=== PATIENT | male | born 1935 | race Caucasian/White ===

== ENCOUNTER 2017-06-06 11:20 | Emergency (ER) | payer MEDICARE ==
[2017-06-06 12:05] LABS: #Basophils 0.1 thou/uL (0.0-0.2); #Eosinphils 0.1 thou/uL (0.0-0.7); #Lymphocytes 1.3 thou/uL (1.20-3.40); #Monocytes 0.9 thou/uL (0.11-0.59); #Neutrophils 7.1 thou/uL (1.40-6.50); %Basophils 0.6 % (0.0-1.0); %Eosinophils 1.4 % (0.0-10.0); %Lymphocytes 13.5 % (21.0-51.0); Hematocrit 42.1 % (42.0-52.0); Mean Platelet Volume 8.4 fL (7.4-10.4); Red Blood Cell (RBC) Count 4.42 mill/uL (4.70-6.10); White Blood Cell (WBC) Count 9.5 thou/uL (4.8-10.8)
[2017-06-06 12:29] LABS: ALT (SGPT) 11 U/L (8-55); AST (SGOT) 18 U/L (5-34); Alkaline Phosphatase 111 U/L (40-150); Anion Gap 16 mmol/L (10-20); BUN (Urea Nitrogen) 13 mg/dL (8.4-25.7); Bilirubin, Total 0.6 mg/dL (0.2-1.2); Calc. Creatinine Clearance 0 mL/min (70-130); Calcium 9.6 mg/dL (7.8-10.44); Carbon Dioxide 22 mmol/L (23-31); Chloride 106 mmol/L (98-107); Estimated GFR-MDRD 86; Globulin 3.6 g/dL (2.4-3.5); Protein, Total 7.3 g/dL (5.8-8.1)
[2017-06-06 13:45] LABS: Bilirubin Negative (Negative); Blood, Urine Large (Negative); Glucose, Urine (Dipstick) Negative (Negative); Ketone, Urine Negative (Negative); Nitrite Negative (Negative); Protein, Urine (Dipstick) 300 mg/dL (Neg-Trace); Urobilinogen 0.2 mg/dL (0.2-1.0)
[2017-06-06 13:47] LABS: Bacteria/HPF None Seen HPF (None Seen)
[2017-06-06 13:58] LABS: RBC/HPF GREATER THAN 50-TNTC HPF (0-3)
[2017-06-06 13:59] LABS: Hyaline Casts/LPF 0-3 HYALINE CAST LPF (0-3 Hyaline); Transitional Epithelial 0-3 HPF (0-3); Yeast-All Forms None Seen HPF (None Seen)
== END 2017-06-06 15:16 | disposition home or self-care (01) ==
LOC: ERS 11:20
DX: N39.0 Urinary tract infection, site not specified (principal); I49.9 Cardiac arrhythmia, unspecified; I48.91 Unspecified atrial fibrillation; J43.9 Emphysema, unspecified; F17.210 Nicotine dependence, cigarettes, uncomplicated; Z79.899 Other long term (current) drug therapy
CPT/HCPCS: 80053; 81003; 81015; 85025; 87077; 87086; 99284

== ENCOUNTER 2017-07-26 12:05 | Outpatient (CLI) | payer MEDICARE ==
--- NOTE | 2017-07-26 16:09 | RAD ---
CHEST TWO VIEWS: Comparison: 05-18-17 History: Dyspnea. FINDINGS: Stimulator device projects over the left hemithorax. There is elongation of the aorta. Normal cardia c silhouette. The pulmonary vessels and hilum are normal. Costophrenic angles are clear. Lungs are h yperinflated with chronic changes. Pneumothorax is note appreciated. Stable nodularity projecting ov er the left hemithorax. IMPRESSION: 1. Hyperinflation. 2. Chronic changes. 3. Stable nodularity projecting over the left hemithorax. POS: [facility]
== END 2017-07-26 12:06 | disposition home or self-care (01) ==
LOC: RAD 12:05
PROVIDERS: ATTEND Internal Medicine Critical Care Medicine
DX: R06.00 Dyspnea, unspecified (principal); R91.1 Solitary pulmonary nodule
CPT/HCPCS: 71020

== ENCOUNTER 2017-10-08 15:02 | Emergency (ER) | payer MEDICARE ==
--- NOTE | 2017-10-08 16:11 | RAD ---
PORTABLE CHEST 1 VIEW: HISTORY: A 81-year-old male with a history of cough and difficulty breathing. COMPARISON: 04/08/17 and 07/26/17. There is rotation to the right. Atherosclerosis of the aorta with ectasia. Electrical device overli es the left chest extending up towards the neck region. Stable left circumscribed lung nodule. Some linear and some pleural-based parenchymal changes in the apices are chronic. IMPRESSION: Stable-appearing chest. Atherosclerosis of the aorta with ectasia. Stable left pulmonary nodule. S table pleural and parenchymal opacity changes in the apices. No confluent pneumonia, overt edema, pl eural effusion, or other acute process. POS: [facility]
[2017-10-08 16:48] LABS: #Lymphocytes 1.7 thou/uL (1.20-3.40); #Monocytes 1.4 thou/uL (0.11-0.59); #Neutrophils 10.9 thou/uL (1.40-6.50); %Basophils 0.3 % (0.0-1.0); %Eosinophils 0.3 % (0.0-10.0); %Monocytes 10.2 % (0.0-10.0); %Neutrophils 77.3 % (42.0-75.0); Mean Corpuscular HGB CONC 32.2 g/dL (32.0-36.0); Mean Corpuscular Hemoglobin 30.1 pg (27.0-31.0); Mean Corpuscular Volume 93.6 fl (80.0-94.0); Mean Platelet Volume 8.4 fL (7.4-10.4); Platelet Count 261 thou/uL (130-400); RBC Distribution Width 13.4 % (11.5-14.5); White Blood Cell (WBC) Count 14.1 thou/uL (4.8-10.8)
[2017-10-08] MEDS ORDERED: methylPREDNISolone Sod Succ/PF 125 MG/2 ML VIAL ONE (16:55)
[2017-10-08] MEDS ORDERED: Magnesium Sulfate 2 GM/100 ML BAG ONE (16:55)
[2017-10-08] MEDS ORDERED: Water For Inject, Bacteriostat 30 ML ONE (16:55)
[2017-10-08 17:03] LABS: ALT (SGPT) 16 U/L (8-55); AST (SGOT) 20 U/L (5-34); Alkaline Phosphatase 113 U/L (40-150); Anion Gap 13 mmol/L (10-20); BUN (Urea Nitrogen) 14 mg/dL (8.4-25.7); Bilirubin, Total 0.5 mg/dL (0.2-1.2); CK (CPK) 66 U/L (30-200); Calc. Creatinine Clearance 0 mL/min (70-130); Calcium 9.8 mg/dL (7.8-10.44); Carbon Dioxide 24 mmol/L (23-31); Chloride 105 mmol/L (98-107); Estimated GFR-MDRD 86; Globulin 3.4 g/dL (2.4-3.5); Glucose 97 mg/dL (83-110); Protein, Total 7.4 g/dL (5.8-8.1); Sodium 138 mmol/L (136-145)
[2017-10-08 17:08] LABS: CKMB 1.2 ng/mL (0-6.6); Troponin I 0.011 ng/mL (< 0.028)
[2017-10-08 18:40] LABS: Bilirubin Negative (Negative); Blood, Urine Large (Negative); Clarity TURBID (Clear); Glucose, Urine (Dipstick) Negative (Negative); Leukocyte Large (Negative); Nitrite Negative (Negative); Protein, Urine (Dipstick) 30 mg/dL (Neg-Trace); Specific Gravity, Urine 1.019 (1.002-1.036); Urobilinogen 0.2 mg/dL (0.2-1.0)
[2017-10-08 18:42] LABS: Bacteria/HPF 3+ HPF (None Seen); Hyaline Casts/LPF 4-6 HYALINE CAST LPF (0-3 Hyaline); Pathc Cast-AUWi Flag 1.36 (0-2.49); Squamous Epithelial 0-3 HPF (0-3)
[2017-10-08 18:45] LABS: Yeast-AUWi Flag 59.7 (0-25.0)
[2017-10-08 18:59] LABS: RBC/HPF GREATER THAN 50-TNTC HPF (0-3); Yeast-All Forms None Seen HPF (None Seen)
[2017-10-08 19:00] LABS: Crystals/HPF 1+ CA OXALATE HPF (Negative)
== END 2017-10-08 18:05 | disposition home or self-care (01) ==
LOC: ERS 15:02
DX: J44.1 Chronic obstructive pulmonary disease with (acute) exacerbation (principal); D72.829 Elevated white blood cell count, unspecified; I48.91 Unspecified atrial fibrillation; N40.0 Benign prostatic hyperplasia without lower urinary tract symptoms; F41.9 Anxiety disorder, unspecified; F17.210 Nicotine dependence, cigarettes, uncomplicated; Z79.899 Other long term (current) drug therapy
CPT/HCPCS: 36415; 71045; 80053; 81003; 81015; 82553; 83605; 83880; 84484; 85025; 87077; 87086; 87186; 87804; 93005; 94640; 96365; 96375; J2930; J3475

== ENCOUNTER 2018-07-18 14:00 | Emergency (ER) | payer MEDICARE ==
[2018-07-18 15:28] LABS: #Lymphocytes 0.9 thou/uL (1.20-3.40); #Monocytes 0.6 thou/uL (0.11-0.59); #Neutrophils 7.3 thou/uL (1.40-6.50); %Basophils 0.4 % (0.0-1.0); %Eosinophils 0.2 % (0.0-10.0); %Monocytes 6.9 % (0.0-10.0); %Neutrophils 82.5 % (42.0-75.0); Hemoglobin 13.6 g/dL (14.0-18.0); Mean Corpuscular HGB CONC 31.1 g/dL (32.0-36.0); Mean Corpuscular Hemoglobin 27.7 pg (27.0-31.0); Mean Corpuscular Volume 88.8 fL (78.0-98.0); Mean Platelet Volume 8.3 fL (7.4-10.4); Platelet Count 254 thou/uL (130-400); RBC Distribution Width 14.8 % (11.5-14.5); White Blood Cell (WBC) Count 8.8 thou/uL (4.8-10.8)
--- NOTE | 2018-07-18 15:31 | RAD ---
PORTABLE AP CHEST: Date: 07/18/18 HISTORY: Dyspnea. COMPARISON: 10/08/17. FINDINGS: There is an electronic device again overlying the left chest with leads extending superiorly, stable in position. Cardiac silhouette and pulmonary vasculature are within normal limits for the portable t echnique of the study. The pulmonary nodule in left mid lung zone is again seen and unchanged. Again noted are mild chronic lung changes with linear densities seen in the mid lung zones bilaterally and at the right lung base. No new focal area of consolidation or pleural fluid is seen. There is no othe r interval change. IMPRESSION: 1. Stable chest without evidence of an acute cardiopulmonary process. 2. Stable pulmonary nodule left mid lung zone. 3. Stable chronic lung changes. POS: [facility]
[2018-07-18 15:46] LABS: ALT (SGPT) 10 U/L (8-55); AST (SGOT) 19 U/L (5-34); Albumin 4.3 g/dL (3.4-4.8); Alkaline Phosphatase 149 U/L (40-150); Anion Gap 11 mmol/L (10-20); BUN (Urea Nitrogen) 13 mg/dL (8.4-25.7); Bilirubin, Total 0.7 mg/dL (0.2-1.2); Calc. Creatinine Clearance 0 mL/min (70-130); Calcium 9.4 mg/dL (7.8-10.44); Carbon Dioxide 28 mmol/L (23-31); Chloride 103 mmol/L (98-107); Estimated GFR-MDRD 74; Globulin 3.7 g/dL (2.4-3.5); Glucose 97 mg/dL (83-110); Potassium 3.7 mmol/L (3.5-5.1); Sodium 138 mmol/L (136-145)
[2018-07-18 15:51] LABS: CKMB 1.2 ng/mL (0-6.6); Troponin I Less than 0.010 ng/mL (< 0.028)
== END 2018-07-18 18:27 | disposition home or self-care (01) ==
LOC: ERS 14:00
DX: J44.1 Chronic obstructive pulmonary disease with (acute) exacerbation (principal); I48.91 Unspecified atrial fibrillation; N40.0 Benign prostatic hyperplasia without lower urinary tract symptoms; F41.9 Anxiety disorder, unspecified; F17.210 Nicotine dependence, cigarettes, uncomplicated; Z79.899 Other long term (current) drug therapy; Z79.01 Long term (current) use of anticoagulants
CPT/HCPCS: 36415; 71045; 80053; 82553; 83880; 84484; 85025; 93005

== ENCOUNTER 2018-08-27 17:10 | Inpatient (IN) | payer MEDICARE ==
[2018-08-27] MEDS ORDERED: Magnesium 2 GM/50 ML BAG (IN WATER) ONE (17:37)
[2018-08-27] MEDS ORDERED: methylPREDNISolone Sod Succ/PF 125 MG/2 ML VIAL ONE (17:37)
[2018-08-27 17:48] LABS: #Basophils 0.1 thou/uL (0.0-0.2); #Eosinphils 0.1 thou/uL (0.0-0.7); #Lymphocytes 0.9 thou/uL (1.20-3.40); #Neutrophils 11.2 thou/uL (1.40-6.50); %Basophils 0.4 % (0.0-1.0); %Eosinophils 0.5 % (0.0-10.0); %Monocytes 7.5 % (0.0-10.0); %Neutrophils 84.6 % (42.0-75.0); Hemoglobin 13.7 g/dL (14.0-18.0); Mean Corpuscular HGB CONC 32.7 g/dL (32.0-36.0); Mean Corpuscular Hemoglobin 28.5 pg (27.0-31.0); Mean Corpuscular Volume 87.1 fL (78.0-98.0); Mean Platelet Volume 9.2 fL (7.4-10.4); Platelet Count 207 thou/uL (130-400); RBC Distribution Width 14.6 % (11.5-14.5); White Blood Cell (WBC) Count 13.3 thou/uL (4.8-10.8)
--- NOTE | 2018-08-27 17:52 | RAD ---
RADIOGRAPH CHEST 1 VIEW: 08/27/18 HISTORY: 82-year-old male with dyspnea. FINDINGS: There is hyperinflation of the lungs, consistent with COPD. There is no evidence of air space densit y, pneumothorax, or pulmonary edema. The lateral costophrenic angles are sharp. IMPRESSION: 1) No acute pulmonary findings. 2) Emphysema. 3) Left sided pulmonary nodule. 4) Left sided deep brain stimulator generator. 5) No interval change since 07/18/18. jn [] POS: [facility]
[2018-08-27 18:07] LABS: ALT (SGPT) 18 U/L (8-55); AST (SGOT) 25 U/L (5-34); Albumin 4.4 g/dL (3.4-4.8); Alkaline Phosphatase 136 U/L (40-150); Anion Gap 15 mmol/L (10-20); BUN (Urea Nitrogen) 15 mg/dL (8.4-25.7); Bilirubin, Total 0.9 mg/dL (0.2-1.2); Calc. Creatinine Clearance 0 mL/min (70-130); Carbon Dioxide 23 mmol/L (23-31); Chloride 103 mmol/L (98-107); Estimated GFR-MDRD 74; Globulin 3.7 g/dL (2.4-3.5); Glucose 116 mg/dL (83-110); Potassium 3.6 mmol/L (3.5-5.1); Protein, Total 8.1 g/dL (5.8-8.1); Sodium 137 mmol/L (136-145)
[2018-08-27 18:12] LABS: Acetaminophen Less than 6.0 mcg/mL (10.0-30.0); Alcohol Less than 10 mg/dL (Less than 10); Salicylate Less than 8.0 mg/dL (15.0-30.0)
[2018-08-27 18:53] LABS: Bilirubin Negative (Negative); Blood, Urine Large (Negative); Glucose, Urine (Dipstick) Negative (Negative); Leukocyte Moderate (Negative); Nitrite Positive (Negative); Protein, Urine (Dipstick) 30 mg/dL (Neg-Trace); Urobilinogen 0.2 mg/dL (0.2-1.0); pH, Urine 8.5 (5.0-9.0)
[2018-08-27 18:55] LABS: Clarity Opaque (Clear); Specific Gravity, Urine 1.021 (1.002-1.036)
[2018-08-27 19:04] LABS: RBC/HPF 21-50 HPF (0-3)
[2018-08-27 19:05] LABS: Hyaline Casts/LPF NONE SEEN LPF (0-3 Hyaline); Squamous Epithelial None Seen HPF (0-3)
[2018-08-27 19:06] LABS: Bacteria/HPF 2+ HPF (None Seen)
[2018-08-27] MEDS: ALPRAZolam 0.5 MG TAB PO SCH (20:37)
[2018-08-27] MEDS: Doxycycline 100 MG CAP PO SCH (20:44)
[2018-08-27 21:52] VITALS: BMI 20.9
[2018-08-28] MEDS: Sodium Chloride 0.45% 1,000 ML IV SCH ×2 (02:26→16:00)
[2018-08-28] MEDS: Ipratropium Bromide 0.03% Nasal Inhaler 30 ml Bottle EA NARE SCH ×3 (09:01→20:38)
[2018-08-28] MEDS: Digoxin 0.125 MG TAB PO SCH (09:10)
[2018-08-28] MEDS: Rivaroxaban 10 MG TAB PO SCH (09:10)
--- NOTE | 2018-08-28 09:16 | CT ---
CT CHEST WITHOUT CONTRAST: COMPARISON: 04/02/10 and chest x-ray 08/27/2018. HISTORY: Shortness of breath and respiratory distress. Left-sided pulmonary nodule seen on chest x-ray. TECHNIQUE: Multiple contiguous axial images were obtained in a CT of the chest without contrast. FINDINGS: The heart is normal in size. Calcifications are seen in the coronary arteries and aorta. No hilar o r mediastinal lymphadenopathy are appreciated on this limited noncontrast examination. Emphysematous changes are seen in the lungs. There is a 1.7 cm area of nodularity along the left pato or fissure. A small amount of motion artifact is seen coursing in the region of this nodule on this examination. No other pulmonary nodules are seen. NO pleural effusion or pneumothorax are seen. The visualized subdiaphragmatic structures are unremarkable. Degenerative changes are seen in the sp ine. A generator is seen projecting over the left chest wall. IMPRESSION: Left-sided pulmonary nodule. This may represent a pulmonary parenchymal nodule. This could also rep resent fluid entrapped within the major fissure. A followup CT in 6 months is recommended for furthe r evaluation. POS: [facility]
[2018-08-28] MEDS: Doxycycline 100 MG CAP PO SCH ×2 (09:20→20:38)
--- NOTE | 2018-08-28 14:47 | PRG ---
DATE OF SERVICE: 08/28/2018 SUBJECTIVE: Kelvin Carrillo is a little bit better. He actually moved around with Physical Therapy today. His frezuzjg-xy-rgr was in the room, feeding him. OBJECTIVE: LUNGS: Distant. HEART: Regular rhythm. ABDOMEN: Soft. VITAL SIGNS: He is afebrile, heart rate is 104, respiratory rate is 28, and oximetry is 91% on 1 L. He dropped into the 70s with ambulation. IMPRESSION: 1. Advanced chronic obstructive pulmonary disease. 2. Advanced deconditioning. 3. Ongoing tobacco use. 4. 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 PLAN: Continue with current medications. Job ID: [id number]
[2018-08-28] MEDS: ALPRAZolam 0.5 MG TAB PO SCH (20:38)
[2018-08-29] MEDS: Sodium Chloride 0.45% 1,000 ML IV SCH ×2 (03:24→16:42)
--- NOTE | 2018-08-29 05:54 | HP ---
DATE: 08/28/2018 HISTORY OF PRESENT ILLNESS: Mr. Carrillo is a very pleasant gentleman, who I have cared for, for many years. He has a movement disorder that was a benign essential tremor that was severe. He had a deep brain stimulator placed quite a while back. The neurologist who was adjusting his deep brain stimulator has moved away, but recently his tremor has been reasonably well controlled. Mr. Carrillo's biggest problem is inactivity and ongoing tobacco use. He has significant obstructive lung disease. He also has a benign nodule in his left lower lobe that we followed for quite sometime and is not enlarging and actually was a result of an aspiration pneumonia and a lung abscess. It shrunk down to a stable place and has been stable. He has been progressively getting more short of breath over several weeks. He was seen in the emergency room in early July and sent home. He is reaching a point from a functional standpoint where his cannot alone assist him and he may be reaching a point where he is going to end up in some time in a full-time care environment. PAST MEDICAL HISTORY: Remarkable for: 1. Suprapubic catheter and chronic bladder outlet obstruction. 2. History of chronic atrial fibrillation. 3. History of hypertension. 4. Advanced obstructive lung disease. 5. Prostate hypertrophy. 6. Status post implantation of a brain stimulator. 7. History of recurrent falls with a humerus fracture in 2017. 8. History of ulcer disease in the past. 9. History of anxiety, for which he takes Xanax. 10. History of left hydropneumothorax, requiring chest tube placement by Dr. Dawson in 2016. 11. Chronic anticoagulation. 12. Fall risk, quite sometime. 13. EGD in 2014 showing a duodenal ulcer. 14. Status post bilateral hip replacements. MEDICATIONS: Have been reviewed. FAMILY HISTORY: Negative for lung disease in early age. SOCIAL HISTORY: Very supportive family, extremely supportive . REVIEW OF SYSTEMS: Ten point review of systems completed, otherwise negative. He gets extremely short of breath just moving from the supine position to sitting on the side of the bed. PHYSICAL EXAMINATION: GENERAL: Mr. Carrillo is a very pleasant gentleman, who I have cared for, for many years. VITAL SIGNS: Blood pressure is 110/60, pulse is 80, respiratory rate is 18. He is afebrile. HEENT: Pupils are equal. Sclerae are anicteric. He is not talking much. NECK: Supple. He has no lymphadenopathy. LUNGS: He is . Lungs are distant clear with end-expiratory wheezes. HEART: Regular rhythm, S1 and S2 normal. ABDOMEN: Soft and nontender. EXTREMITIES: Without clubbing, cyanosis, or edema. IMAGING DATA: Chest radiograph showed no alveolar infiltrate. LABORATORY DATA: White count 13.3, hemoglobin 13.7, and platelets 207. Electrolytes were unremarkable. IMPRESSION: 1. Chronic obstructive pulmonary disease exacerbation. 2. Deconditioning which is at least as big a factor as the chronic obstructive pulmonary disease. PLAN: He will be admitted. Physical Therapy will be initiated. He will receive steroids, nebulizer treatments, empiric antibiotics, and continuation of his other home medications. He will also receive Xanax for his anxiety. He will need placement in a skilled facility after discharge from the hospital. This is a 70 minute History and Physical with greater than 50% of time spent on unit coordinating care. Job ID: [id number] [facility]
[2018-08-29] MEDS: Rivaroxaban 10 MG TAB PO SCH (08:34)
[2018-08-29] MEDS: Digoxin 0.125 MG TAB PO SCH (08:34)
[2018-08-29] MEDS: Doxycycline 100 MG CAP PO SCH ×2 (08:34→19:59)
[2018-08-29] MEDS: Ipratropium Bromide 0.03% Nasal Inhaler 30 ml Bottle EA NARE SCH ×2 (08:35→19:59)
--- NOTE | 2018-08-29 12:30 | PRG ---
DATE OF SERVICE: 08/29/2018 SUBJECTIVE: Mr. Carrillo has no new complaints. OBJECTIVE: VITAL SIGNS: Heart rate is 100, blood pressure 118/70, and oximetry is 94% on room air. LUNGS: Clear. HEART: Regular rhythm. ABDOMEN: Soft. He says he is going to work with physical therapy. IMPRESSION: 1. Chronic obstructive pulmonary disease exacerbation. 2. Extreme deconditioning. 3. Pulmonary nodule, left lower lobe, which is a scar left over from past lung abscess. 4. Movement disorder with a deep brain stimulator, seems reasonably stable. 5. long-term evaluations should be in progress. Hopefully, we can get him to custodial in two or three days. Job ID: [id number]
--- NOTE | 2018-08-29 15:23 | PQF ---
DATE: 08-29-18 ATTN: DR. DANY RIVERA Please exercise your independent, professional judgment in responding to the clarification form. Clinical indicators are provided on the bottom of this form for your review Please check appropriate box(s): [ ] UTI please specify if due to or related to (as applicable): [ ] Suprapubic catheter [ ] Contaminated urine specimen without UTI [ ] Other diagnosis [ ] Unable to determine In addition, please specify: Present on Admission (POA): [ ] Yes [ ] No [ ] Unable to determine For continuity of documentation, please document condition throughout progress notes and discharge summary. Thank You. CLINICAL INDICATORS - SIGNS / SYMPTOMS / LABS URINE: 08-27-18: URINE CLARITY: [place] H URINE PROTEIN: 30 H URINE BLOOD: LARGE H URINE NITRITE: POSITIVE H UR LEUKOCYTE ESTERASE: MODERATE H URINE RBC: 21-50 H URINE WBC: GREATER THAN 50- TNTC H URINE BACTERIA: 2+ H RISK FACTORS: ER: HX OF UTI, SUPRAPUBIC CATHETER PLACED 03-17-17, SMOKER TREATMENT: MAR: 08-28-18: NS IVF, DOXYCYCLINE PO (This form is maintained as a part of the permanent medical record) 2015 [employer] All Rights Reserved MARKO [email or web address] Office: [phone] [facility] CENTERJosef
[2018-08-29] MEDS: ALPRAZolam 0.5 MG TAB PO SCH (19:59)
[2018-08-30] MEDS: Sodium Chloride 0.45% 1,000 ML IV SCH (05:25)
[2018-08-30] MEDS: Digoxin 0.125 MG TAB PO SCH (08:02)
[2018-08-30] MEDS: Rivaroxaban 10 MG TAB PO SCH (08:03)
[2018-08-30] MEDS: Ipratropium Bromide 0.03% Nasal Inhaler 30 ml Bottle EA NARE SCH ×2 (08:04→20:52)
[2018-08-30 09:11] LABS: #Lymphocytes 0.6 thou/uL (1.20-3.40); #Monocytes 0.5 thou/uL (0.11-0.59); #Neutrophils 11.9 thou/uL (1.40-6.50); %Basophils 0.1 % (0.0-1.0); %Lymphocytes 4.5 % (21.0-51.0); %Monocytes 3.5 % (0.0-10.0); %Neutrophils 91.9 % (42.0-75.0); Hemoglobin 10.5 g/dL (14.0-18.0); Mean Corpuscular HGB CONC 31.4 g/dL (32.0-36.0); Mean Corpuscular Hemoglobin 27.5 pg (27.0-31.0); Mean Corpuscular Volume 87.6 fL (78.0-98.0); Mean Platelet Volume 8.8 fL (7.4-10.4); Platelet Count 207 thou/uL (130-400); RBC Distribution Width 14.8 % (11.5-14.5); Red Blood Cell (RBC) Count 3.82 mill/uL (4.70-6.10); White Blood Cell (WBC) Count 12.9 thou/uL (4.8-10.8)
[2018-08-30 09:30] LABS: Anion Gap 14 mmol/L (10-20); BUN (Urea Nitrogen) 23 mg/dL (8.4-25.7); Calc. Creatinine Clearance 66 mL/min (70-130); Calcium 9.2 mg/dL (7.8-10.44); Carbon Dioxide 23 mmol/L (23-31); Chloride 106 mmol/L (98-107); Estimated GFR-MDRD 82; Glucose 139 mg/dL (83-110); Potassium 4.4 mmol/L (3.5-5.1); Sodium 139 mmol/L (136-145)
--- NOTE | 2018-08-30 09:35 | PRG ---
DATE OF SERVICE: 08/30/2018 SUBJECTIVE: This morning, he is awake, alert, responsive. Says he is having difficulty breathing, but no chest pain. OBJECTIVE: VITAL SIGNS respirations 32, blood pressure 125/75. Pulse 84 Oxygen 94% CHEST: Decreased breath sounds. No wheezing. CARDIAC: Normal S1 and S2. No gallops. ABDOMEN: No masses. LABORATORY DATA: Urine grows Proteus and Pseudomonas sensitive to Maxipime. IMPRESSION: 1. End-stage chronic obstructive pulmonary disease. 2. Severe deconditioning. 3. Movement disorder. 4. Urinary tract infection. PLAN: I am not sure there is much to be done at this stage, requires placement, long going issues. I am going to start him on empiric antibiotics for his UTI. Probably, colonization more than anything else. [facility] [id number] [facility]
[2018-08-30] MEDS: Cefdinir 300 MG CAP PO SCH ×2 (13:44→20:51)
[2018-08-30] MEDS: Doxycycline 100 MG CAP PO SCH ×2 (13:44→20:51)
[2018-08-30] MEDS: ALPRAZolam 0.5 MG TAB PO SCH (20:50)
[2018-08-31] MEDS: Sodium Chloride 0.45% 1,000 ML IV SCH ×2 (01:40→17:07)
[2018-08-31] MEDS: Rivaroxaban 10 MG TAB PO SCH (08:43)
[2018-08-31] MEDS: Doxycycline 100 MG CAP PO SCH ×2 (08:43→20:33)
[2018-08-31] MEDS: Digoxin 0.125 MG TAB PO SCH (08:45)
[2018-08-31] MEDS: Cefdinir 300 MG CAP PO SCH ×2 (08:46→20:33)
[2018-08-31] MEDS: Ipratropium Bromide 0.03% Nasal Inhaler 30 ml Bottle EA NARE SCH ×2 (08:48→20:34)
[2018-08-31] MEDS: ALPRAZolam 0.5 MG TAB PO SCH (20:33)
[2018-09-01] MEDS: Rivaroxaban 10 MG TAB PO SCH (08:30)
[2018-09-01] MEDS: Doxycycline 100 MG CAP PO SCH ×2 (08:30→20:16)
[2018-09-01] MEDS: Cefdinir 300 MG CAP PO SCH ×2 (08:31→20:16)
[2018-09-01] MEDS: Digoxin 0.125 MG TAB PO SCH (08:31)
[2018-09-01] MEDS: predniSONE 20 MG TAB PO SCH (08:31)
[2018-09-01] MEDS: Ipratropium Bromide 0.03% Nasal Inhaler 30 ml Bottle EA NARE SCH (08:32)
--- NOTE | 2018-09-01 08:55 | PRG ---
DATE OF SERVICE: 08/31/2018 SUBJECTIVE: Kelvin Hopeedmund got out in the kay and walked today with assistance. OBJECTIVE: GENERAL: He is in no distress. VITAL SIGNS: Heart rate is in 80s, respiratory rate in the teens. LUNGS: Clear now. HEART: Regular rhythm. ABDOMEN: Soft. IMPRESSION: 1. Chronic obstructive pulmonary disease exacerbation. 2. Deconditioning. PLAN: He will be switched to prednisone. We are awaiting approval for placement to skilled. Job ID: [id number]
--- NOTE | 2018-09-01 16:55 | PRG ---
DATE OF SERVICE: 09/01/2018 SUBJECTIVE: Mr. Carrillo is continuing to progress. We have a bed for him for group home. Plan is for him to go in the morning. OBJECTIVE: VITAL SIGNS: Heart rate is in the 80s, respiratory rate 20. Oximetry is good on room air. His blood pressure has been fine. LUNGS: Now clear. HEART: Regular rhythm. ABDOMEN: Soft. IMPRESSION: 1. Advanced chronic obstructive pulmonary disease. 2. Advanced deconditioning. 3. Movement disorder, status post deep brain stimulator. I anticipate discharge in the morning. His IV fluids have been discontinued. Job ID: [id number]
[2018-09-01] MEDS: ALPRAZolam 0.5 MG TAB PO SCH (20:16)
[2018-09-02 07:34] LABS: Hemoglobin 12.5 g/dL (14.0-18.0); Mean Corpuscular HGB CONC 33.1 g/dL (32.0-36.0); Mean Corpuscular Hemoglobin 29.1 pg (27.0-31.0); Mean Corpuscular Volume 88.2 fL (78.0-98.0); Platelet Count 241 thou/uL (130-400); RBC Distribution Width 14.5 % (11.5-14.5); Red Blood Cell (RBC) Count 4.27 mill/uL (4.70-6.10); White Blood Cell (WBC) Count 11.5 thou/uL (4.8-10.8)
[2018-09-02 07:43] VITALS: TEMP 97.5
[2018-09-02] MEDS: Rivaroxaban 10 MG TAB PO SCH (08:16)
[2018-09-02] MEDS: Cefdinir 300 MG CAP PO SCH (08:16)
[2018-09-02] MEDS: Digoxin 0.125 MG TAB PO SCH (08:16)
[2018-09-02] MEDS: Doxycycline 100 MG CAP PO SCH (08:16)
[2018-09-02] MEDS: predniSONE 20 MG TAB PO SCH (08:17)
[2018-09-02] MEDS: Ipratropium Bromide 0.03% Nasal Inhaler 30 ml Bottle EA NARE SCH (08:18)
[2018-09-02 08:55] LABS: Band 4 % (5-11); Lymphocytes 15 % (21-51); MDiff Complete? YES; Monocytes 5 % (0-10); Neutrophil 75 % (42-75); RBC Morphology Normal; Reactive Lymphocytes 1 % (0-10)
[2018-09-02 15:30] VITALS: BP 119/80
--- NOTE | 2018-09-03 05:53 | DIS ---
DATE OF ADMISSION: 08/27/2018 DATE OF DISCHARGE: 09/02/2018 DISCHARGE DIAGNOSES: 1. Chronic obstructive pulmonary disease exacerbation. 2. Movement disorder with deep brain stimulator. 3. Extreme deconditioning. HOSPITAL COURSE: Please see history and physical for details. Briefly, Mr. Carrillo was admitted for shortness of breath and failure to thrive at home. He was started on steroids, antibiotics, nebulizer treatments, and gradually improved. He actually ambulated in the kay. Unfortunately, at home, his in a wonderful fashion continuously waits on him, so he does not do anything at home. I do not really think, he will ever be able to kick the cared for at home by her, but she is also a patient of mine and I will discuss this with her at a later date. I actually had to treat her for pneumonia this week because she had been neglecting a respiratory infection until he was put in the hospital. He had no other acute care issues. He has suprapubic catheter in place, chronic atrial fibrillation, hypertension, history of recurrent falls, history of a humerus fracture last year, history of ulcer disease, history of anxiety, history of left hydropneumothorax requiring chest tube placement, which left him with a small nodule at his left base as a scar, chronic anticoagulation, and history of bilateral hip replacements. He did have mild anemia that was stable here with a hemoglobin of 12. He is not a candidate for an aggressive treatment. If anything we might find, it would be malignant in my opinion. We will see how he does. He is being transferred to [place] for intermediate care. Job ID: [id number]
[2018-09-03] MEDS ORDERED: predniSONE 20 MG TAB PO SCH (08:00)
== END 2018-09-02 17:21 | DRG 191 ==
LOC: ERS 17:10 → T4-A 18:15
PROVIDERS: ADMIT Internal Medicine Critical Care Medicine; ATTEND Internal Medicine Critical Care Medicine
DX: J44.1 Chronic obstructive pulmonary disease with (acute) exacerbation (principal); N39.0 Urinary tract infection, site not specified; R25.1 Tremor, unspecified; F17.210 Nicotine dependence, cigarettes, uncomplicated; R91.1 Solitary pulmonary nodule; I10 Essential (primary) hypertension; N32.0 Bladder-neck obstruction; I48.2 Chronic atrial fibrillation; N40.1 Benign prostatic hyperplasia with lower urinary tract symptoms; F41.9 Anxiety disorder, unspecified; R62.7 Adult failure to thrive; Z96.643 Presence of artificial hip joint, bilateral
CPT/HCPCS: 36415; 71045; 71250; 80048; 80053; 80307; 81003; 81015; 83690; 84484; 85007; 85025; 85027; 87077; 87086; 87186; 87804; 93005; 94640; 96365; 96375; G8978-GP-CK; G8979-GP-CJ; G8996-GN-CJ; G8997-GN-CI; J2920; J2930; J7506; J7620

== ENCOUNTER 2018-10-22 12:53 | Inpatient (IN) | payer MEDICARE ==
[2018-10-22 13:32] LABS: #Lymphocytes 0.6 thou/uL (1.20-3.40); #Monocytes 0.7 thou/uL (0.11-0.59); #Neutrophils 13.5 thou/uL (1.40-6.50); %Basophils 0.1 % (0.0-1.0); %Eosinophils 0.2 % (0.0-10.0); %Lymphocytes 4.1 % (21.0-51.0); %Monocytes 4.9 % (0.0-10.0); %Neutrophils 90.7 % (42.0-75.0); Hemoglobin 13.7 g/dL (14.0-18.0); Mean Corpuscular HGB CONC 31.6 g/dL (32.0-36.0); Mean Corpuscular Hemoglobin 27.9 pg (27.0-31.0); Mean Corpuscular Volume 88.4 fL (78.0-98.0); Mean Platelet Volume 8.4 fL (7.4-10.4); Platelet Count 324 thou/uL (130-400); RBC Distribution Width 14.7 % (11.5-14.5); White Blood Cell (WBC) Count 14.9 thou/uL (4.8-10.8)
--- NOTE | 2018-10-22 13:47 | RAD ---
SINGLE VIEW OF THE CHEST: COMPARISON: 08/27/2018. HISTORY: Fever and weakness. Sepsis alert. FINDINGS: A single view of the chest shows a normal-sized cardiomediastinal silhouette. A generator projecting over the left chest wall may represent a vagal stimulator. There is no evidence of consolidation, m ass, or pleural effusion. IMPRESSION: No evidence of acute cardiopulmonary disease. POS: [facility]
[2018-10-22 13:52] LABS: ALT (SGPT) 13 U/L (8-55); AST (SGOT) 20 U/L (5-34); Albumin 3.7 g/dL (3.4-4.8); Alkaline Phosphatase 129 U/L (40-150); Anion Gap 17 mmol/L (10-20); BUN (Urea Nitrogen) 16 mg/dL (8.4-25.7); Bilirubin, Total 0.7 mg/dL (0.2-1.2); Calc. Creatinine Clearance 0 mL/min (70-130); Calcium 9.4 mg/dL (7.8-10.44); Carbon Dioxide 22 mmol/L (23-31); Chloride 105 mmol/L (98-107); Estimated GFR-MDRD 77; Globulin 3.8 g/dL (2.4-3.5); Glucose 134 mg/dL (83-110); Potassium 3.8 mmol/L (3.5-5.1); Protein, Total 7.5 g/dL (5.8-8.1); Sodium 140 mmol/L (136-145)
[2018-10-22 14:11] LABS: Bilirubin Small (Negative); Blood, Urine Large (Negative); Glucose, Urine (Dipstick) Negative (Negative); Leukocyte Moderate (Negative); Nitrite Positive (Negative); Protein, Urine (Dipstick) 100 mg/dL (Neg-Trace); pH, Urine 8.5 (5.0-9.0)
[2018-10-22 14:13] LABS: Clarity Hazy (Clear); Specific Gravity, Urine 1.026 (1.002-1.036)
[2018-10-22 14:21] LABS: Bacteria/HPF 2+ HPF (None Seen); Crystals/HPF 2+ TRIPLE PHOS HPF (Negative); Hyaline Casts/LPF NONE SEEN LPF (0-3 Hyaline); Squamous Epithelial None Seen HPF (0-3)
[2018-10-22] MEDS ORDERED: cefTRIAXone\\ROCEPHIN 1 GM VIAL ONE (14:46)
[2018-10-22] MEDS ORDERED: Zolpidem Tartrate 5 MG TAB PO PRN (15:12)
[2018-10-22] MEDS ORDERED: HYDROcodone/Acetaminophen 5/325 mg Tablet PO PRN (15:12)
[2018-10-22] MEDS: Sodium Chloride 0.9% 1,000 ML IV SCH (16:50)
[2018-10-22 17:00] VITALS: BMI 19.0
--- NOTE | 2018-10-22 17:48 | HP ---
CHIEF COMPLAINT: Fevers. HISTORY OF PRESENT ILLNESS: This is an 82-year-old male with a complicated past medical history of TURP procedure with a Parikh permanently placed by Dr. Kapadia. Apparently follows with Dr. Kapadia for bladder incontinence as well as Dr. Lester for pulmonary issues and Dr. Mao for surgical ablation. The patient states that he was started to have fever yesterday last night, called home health care, had his Parikh catheter replaced, and presents to the ER this morning because of worsening fever. The patient at this point in time, was also found to have a white count of 15 and urinalysis showed slightly dirty urine with potential UTI. The patient otherwise denies any nausea, vomiting, diarrhea, constipation, chills, or shortness of breath. States that he does frequently get UTIs in the past, however, is on lifelong antibiotics, but he has understood the regimen to avoid any drug resistant UTIs. The patient was seen and examined in the ER. at bedside. All questions answered. ALLERGIES: NO KNOWN DRUG ALLERGIES. HOME MEDICATIONS: See MAR. PAST MEDICAL HISTORY: Positive for BPH, status post TURP as well as atrial fibrillation and hypertension. SOCIAL HISTORY: No smoking. No drinking. FAMILY HISTORY: None. REVIEW OF SYSTEMS: All systems reviewed. Pertinent positives in HPI, otherwise negative. PHYSICAL EXAMINATION: VITAL SIGNS: Blood pressure is 112/88; heart rate of 100, however, regular; respiratory rate 18; temperature 99; O2 saturations 100% on room air. GENERAL: The patient is lying in bed comfortably, in no acute distress. HEENT: Pupils are equal, round, and reactive to light and accommodation. Extraocular muscles intact. Oral cavity moist and pink. NECK: Nontender, mobile, thyroid noted. Neck is supple. CARDIOVASCULAR: Irregularly irregular rhythm. S1 and S2. 2/6 systolic ejection murmur appreciated. RESPIRATORY: Clear to auscultation bilaterally. No increase in AP diameter. No respiratory distress. ABDOMEN: Positive bowel sounds. Soft, nontender, nondistended. EXTREMITIES: 2+ peripheral pulses noted. No edema. NEUROLOGIC: Alert, oriented x3. Following all commands. LABORATORY DATA: CBC shows white count of 15, otherwise normal. Basic metabolic panel is within acceptable limits. Glucose slightly elevated at 134. Urinalysis positive for nitrites, bilirubin, ketones, 100 protein, moderate leukocyte esterase, 11 to 20 high-power field white blood cells and red blood cells, 2+ bacteria noted. Chest x-ray shows no evidence of acute cardiopulmonary pathology. ASSESSMENT: 1. Urinary tract infection. 2. Sepsis. 3. Leukocytosis. 4. Benign prostatic hypertrophy, status post transurethral resection of prostate. 5. Bladder incontinence. 6. Atrial fibrillation. 7. Glucosuria. 8. Proteinuria. PLAN: 1. At this point in time, we will admit the patient to Internal Medicine Team. Consult Dr. Mao and Dr. Kapadia per the patient's family request. 2. We will start the patient on Levaquin to cover any pulmonary pathology as well as urinary pathology. 3. We will culture urine and blood culture prior to starting any antibiotics. 4. Labs in the morning. 5. Continue home medications when medical reconciliation is performed. 6. Case and plan discussed with the patient's family at length. They understand and agree with this plan. Job ID: [id number]
[2018-10-22 18:18] LABS: Lactic Acid 1.2 mmol/L (0.5-2.2)
[2018-10-23] MEDS: Sodium Chloride 0.9% 1,000 ML IV SCH (05:40)
[2018-10-23 06:35] LABS: #Eosinphils 0.1 thou/uL (0.0-0.7); #Lymphocytes 1.3 thou/uL (1.20-3.40); #Monocytes 0.8 thou/uL (0.11-0.59); #Neutrophils 8.8 thou/uL (1.40-6.50); %Basophils 0.1 % (0.0-1.0); %Eosinophils 0.6 % (0.0-10.0); %Lymphocytes 11.8 % (21.0-51.0); %Monocytes 7.5 % (0.0-10.0); %Neutrophils 79.9 % (42.0-75.0); Hemoglobin 11.1 g/dL (14.0-18.0); Mean Corpuscular HGB CONC 31.8 g/dL (32.0-36.0); Mean Corpuscular Hemoglobin 28.2 pg (27.0-31.0); Mean Corpuscular Volume 88.8 fL (78.0-98.0); Mean Platelet Volume 8.7 fL (7.4-10.4); Platelet Count 254 thou/uL (130-400); RBC Distribution Width 14.5 % (11.5-14.5); Red Blood Cell (RBC) Count 3.94 mill/uL (4.70-6.10)
[2018-10-23 06:39] LABS: Hemoglobin A1c 5.6 % (4.0-6.0)
[2018-10-23 06:56] LABS: ALT (SGPT) 8 U/L (8-55); AST (SGOT) 14 U/L (5-34); Alkaline Phosphatase 100 U/L (40-150); Anion Gap 14 mmol/L (10-20); BUN (Urea Nitrogen) 12 mg/dL (8.4-25.7); Bilirubin, Total 0.5 mg/dL (0.2-1.2); Calc. Creatinine Clearance 68 mL/min (70-130); Calcium 8.7 mg/dL (7.8-10.44); Carbon Dioxide 20 mmol/L (23-31); Chloride 108 mmol/L (98-107); Estimated GFR-MDRD Greater than 90; Globulin 3.1 g/dL (2.4-3.5); Glucose 98 mg/dL (83-110); Potassium 3.8 mmol/L (3.5-5.1); Protein, Total 6.1 g/dL (5.8-8.1); Sodium 138 mmol/L (136-145)
[2018-10-23] MEDS: Acetaminophen 325 MG TAB PO PRN ×3 (07:14→20:44)
--- NOTE | 2018-10-23 08:21 | RAD ---
SINGLE VIEW OF THE CHEST: COMPARISON: 10/22/2018. HISTORY: High respiratory rate. FINDINGS: A single view of the chest shows a normal-size cardiomediastinal silhouette. The generator projectin g over the left chest wall is unchanged in position. There is no evidence of consolidation, mass, or pleural effusion. Degenerative changes are seen in the spine and right shoulder. IMPRESSION: No evidence of acute cardiopulmonary disease. POS: [facility]
[2018-10-23] MEDS ORDERED: Enoxaparin Sodium 40 MG/0.4 ML SYRINGE SC SCH (09:00)
[2018-10-23] MEDS: Enoxaparin Sodium 80 MG/0.8 ML SYRINGE SC SCH ×2 (09:35→20:44)
[2018-10-23] MEDS: predniSONE 20 MG TAB PO SCH (09:35)
--- NOTE | 2018-10-23 09:58 | PDOC.PN ---
- Subjective Encounter Start Date: 10/23/18 Encounter Start Time: 09:57 Patient seen and examined, states he has no complaints over the last 24 hours, all questions answered. - Objective Vital Signs & Weight: Vital Signs (12 hours) Temp Pulse Resp BP Pulse Ox 10/23/18 09:35 110 H 10/23/18 08:12 99.6 F 110 H 36 H 124/77 91 L 10/23/18 07:05 101.1 F H 119 H 40 H 151/83 H 97 10/23/18 05:55 98.3 F 88 16 123/83 99 10/23/18 00:52 98.7 F 88 18 108/68 99 Weight Weight 136 lb 8 oz I&O: 10/22/18 10/23/18 10/24/18 06:59 06:59 06:59 Intake Total 1266 Balance 1266 Result Diagrams: 10/23/18 05:46 10/23/18 05:46 Phys Exam - Physical Examination Constitutional: NAD HEENT: PERRLA, moist MMs, sclera anicteric Neck: no nodes, no JVD, supple Respiratory: no wheezing, no rales, no rhonchi tachycardia, irregular 2/6 LILIA Gastrointestinal: soft, non-tender Musculoskeletal: pulses present, edema present (trace) Dx/Plan (1) Hypertension Code(s): I10 - ESSENTIAL (PRIMARY) HYPERTENSION Status: Acute (2) Complicated UTI (urinary tract infection) Code(s): N39.0 - URINARY TRACT INFECTION, SITE NOT SPECIFIED Status: Acute (3) Afib Code(s): I48.91 - UNSPECIFIED ATRIAL FIBRILLATION Status: Chronic Qualifiers: Comment: (4) COPD (chronic obstructive pulmonary disease) Status: Chronic Qualifiers: Comment: - Plan * Fever overnight, patient on abx has only received a few doses, will not make any changes for now, WBC trending downwards, continue levaquin for now this should cover Lung/GI/ pathology, can consider flagyl if patient having diarrhea which currently he is not * cultures pending * new santiago inserted day prior to arrival in ER, will await cultures, ideally this santiago will also needs to be changed, however to be done once infection has cleared or once UA is clean * Dr. Quinteros and Dr. Lester consulted per patient's request last night, evaluations pending * patient showing difficulty swallowing, will hold on PO meds for now, speech consulted for evaluation, will switch to full dose lovenox for now, can resume xarelto and DC lovenox once swallowing improved * AFib rate controlled at HR < 110 * CXR shows no acute abnormalities * will monitor and await cultures, adjust abx accordingly
[2018-10-23] MEDS: Cefepime 2 GM in Sodium Chloride 0.9% 100 ML IVPB SCH (13:14)
[2018-10-23] MEDS ORDERED: Labetalol HCl 100 MG/20 ML VIAL SLOW IVP SCH (16:00)
[2018-10-23 17:06] LABS: Actual Bicarbonate (HCO3a) 20.2 mEq/L (22-28); Base Excess (BEa) -2.2 mEq/L (-2.0 to +3.0); CO2 Tension 27.5 mmHg (35.0-45.0); Calcium, Ionized 1.13 mmol/L (1.12-1.30); Hemoglobin (Hb) 11.8 g/dL (14.0-18.0); O2 Tension (PaO2) 95.8 mmHg (> 60.0); Potassium - ABG Lab 3.75 mmol/L (3.70-5.30); pH, Arterial 7.48 (7.35-7.45)
[2018-10-23 17:07] LABS: ALV-art Gradient 69.465 (0-20); Puncture Site RRA
--- NOTE | 2018-10-23 18:26 | RAD ---
CHEST ONE VIEW: History: Shortness of breath. Comparison: Earlier same day. FINDINGS: There are asymmetric opacities in the right lung base. There is a nodule within the lingula measuring approximately 2 cm. Lung apices are clear. Patient is mildly rotated to the right. Old right humeral neck fracture. IMPRESSION: 1. Worsening opacity in the right lung base concerning for aspiration or infection. 2. 2 cm nodule projecting over the lingula likely loculated fluid within the left major fissure as se en on a CT 08-18-18. Follow up CT recommended in 3 months. POS: [facility]
[2018-10-23] MEDS: Ondansetron PF 4 MG/2 ML Vial IVP PRN (20:44)
[2018-10-24] MEDS: Cefepime 2 GM in Sodium Chloride 0.9% 100 ML IVPB SCH ×2 (02:03→12:21)
[2018-10-24 05:15] LABS: #Lymphocytes 0.9 thou/uL (1.20-3.40); #Monocytes 0.7 thou/uL (0.11-0.59); #Neutrophils 11.8 thou/uL (1.40-6.50); %Basophils 0.1 % (0.0-1.0); %Eosinophils 0.1 % (0.0-10.0); %Lymphocytes 6.6 % (21.0-51.0); %Monocytes 5.4 % (0.0-10.0); %Neutrophils 87.7 % (42.0-75.0); Hemoglobin 10.7 g/dL (14.0-18.0); Mean Corpuscular HGB CONC 32.1 g/dL (32.0-36.0); Mean Corpuscular Hemoglobin 28.7 pg (27.0-31.0); Mean Corpuscular Volume 89.4 fL (78.0-98.0); Mean Platelet Volume 8.7 fL (7.4-10.4); Platelet Count 213 thou/uL (130-400); RBC Distribution Width 14.6 % (11.5-14.5); Red Blood Cell (RBC) Count 3.73 mill/uL (4.70-6.10); White Blood Cell (WBC) Count 13.5 thou/uL (4.8-10.8)
[2018-10-24 05:36] LABS: ALT (SGPT) 11 U/L (8-55); AST (SGOT) 18 U/L (5-34); Albumin 2.8 g/dL (3.4-4.8); Alkaline Phosphatase 100 U/L (40-150); Anion Gap 12 mmol/L (10-20); BUN (Urea Nitrogen) 18 mg/dL (8.4-25.7); Bilirubin, Total 0.4 mg/dL (0.2-1.2); Calc. Creatinine Clearance 61 mL/min (70-130); Calcium 8.6 mg/dL (7.8-10.44); Carbon Dioxide 21 mmol/L (23-31); Chloride 110 mmol/L (98-107); Estimated GFR-MDRD 88; Globulin 3.1 g/dL (2.4-3.5); Glucose 117 mg/dL (83-110); Potassium 3.9 mmol/L (3.5-5.1); Protein, Total 5.9 g/dL (5.8-8.1); Sodium 139 mmol/L (136-145)
[2018-10-24] MEDS: Ondansetron PF 4 MG/2 ML Vial IVP PRN (05:58)
[2018-10-24] MEDS: predniSONE 20 MG TAB PO SCH (08:57)
[2018-10-24] MEDS: Enoxaparin Sodium 80 MG/0.8 ML SYRINGE SC SCH ×2 (08:58→21:13)
--- NOTE | 2018-10-24 09:40 | CON ---
DATE OF CONSULTATION: HISTORY OF PRESENT ILLNESS: Kelvin Carrillo is an 82-year-old gentleman, who sees Dr. Lester, presented with a fever up to 101.9. He was recently discharged from the long-term for UTI associated fever. He has a cough, which is nonproductive, in fact, he denies any shortness of breath. PAST MEDICAL HISTORY: Extensive past medical history is well outlined. Pertinent for cardiac arrhythmias, atrial fibrillation, BPH with suprapubic in place, end-stage COPD. PAST SURGICAL HISTORY: Hip surgery, suprapubic, neurostimulator in 2015, TURP. SOCIAL HISTORY: Former smoker, quit smoking years ago. Apparently, may be still using, drinks alcohol from time to time. HOME MEDICINES: 1. Spiriva. 2. Zoloft 100. 3. Xarelto 20. 4. Protonix 40. 5. Dulera 2 puffs twice a day. 6. Nose spray. 7. Cardizem CD 120. 8. Digoxin 0.125. 9. B12. 10. Tessalon Perles. 11. Xanax 0.5 p.r.n. REVIEW OF SYSTEMS: Unremarkable. PHYSICAL EXAMINATION: GENERAL: He appears to be in no acute distress. VITAL SIGNS: Blood pressure is 124/77, sats are 91 on room air, respirations 36, pulse 110, temperature 99.6. NEUROLOGIC: Awake, alert, responsive. CHEST: Decreased breath sounds. No wheezing. CARDIAC: Normal S1, S2. No gallops. ABDOMEN: No masses. LABORATORY DATA: White count 76076, H and H 11 and 35, platelet count 254. Lytes are normal. His urine shows WBCs 11-20. IMPRESSION: Fever, probably secondary to urinary tract infection, end-stage chronic obstructive pulmonary disease, atrial fibrillation. PLAN: I will cover him for his previous gram-negative UTI that is more likely cause of his fever. The Levaquin is resistant, therefore, I have initiated Maxipime to his present regimen. I will notify Dr. Lester. Consultation note, 70 minutes, 50% direct patient care. Job ID: [id number]
--- NOTE | 2018-10-24 10:45 | CON ---
DATE OF CONSULTATION: 10/24/2018 HISTORY OF PRESENT ILLNESS: This is an 82-year-old white male, who was admitted 2 days ago with fever. Looking at his vital signs, he had a fever when he came in, then he was afebrile and then, he had another fever. He does have a suprapubic catheter in, which he has had in for well over a year, maybe longer, and this is because of urinary retention. He had a TURP in the past, but was unable to urinate after that. He had been in a [facility] as his had actually been ill and could not take care of him, but I believe he got back home last week. His suprapubic tube was not that long ago exchanged. He grew out in urine culture of 2 different Proteus species, both with multiple drug resistance. He had a blood culture drawn grew out, but maybe a contaminant, it was just on 1 culture and he had grew out a coagulase-negative Staph on 1 of 2 blood cultures. He is currently on cefepime and Levaquin and the Proteus species he has in his urine, 1 is resistant to cefepime, 1 is sensitive to cefepime, and they are both resistant to Levaquin. His white count when he came in on was 14.9, yesterday was 11.0, and today it is 13.5. Chest x-ray done today showed some worsening opacity in the right lung base concerning for possible aspiration or infection versus a small pulmonary nodule. His chemistries, his creatinine 0.84. He appears to be feeling better. Today, he says he feels better and he is answering questions. His last couple of vital sign checks, he has been afebrile. O2 saturations 100%. Pulse in the low 90s. Blood pressure 100/69 and 116/80. He does not have any flank tenderness. His abdomen is soft, flat, and nontender. Penis is without lesion. SP site is clean. The testicles are descended without mass or tenderness or anything to suggest epididymitis. IMPRESSION AND PLAN: 1. Urinary retention, managed with suprapubic tube. 2. Colonization of urine, possible urinary tract infection with sepsis, although his blood cultures are not growing out the organism that he had in his urine and with a fever that he had, we would think there is a decent chance that would be the case. Particularly, in light of the fact that 1 of the Proteus is not even sensitive to the antibiotics that he is on. 3. Possible pneumonia. I think the plan at this point would be to see what Dr. Lester thinks in regard to his chest x-ray. If it is felt that his sepsis came from the urinary tract source, then choice of antibiotics may end up being left up to Infectious Disease. I do think that there is a chance that it is not from urinary tract source as he will almost always grew out organisms from his suprapubic tube because of colonization. He has already developed multidrug resistance, it will be nice to not have to treat very long. If it was felt to be due to the urinary tract source to treat just this lowest or not we have to on positive blood cultures that may be possible. I do think that there is a distinct possibility that we were just still dealing with the urinary tract colonization. It does not appear at this point in time because of the way that he is improved and because of the way he looks today that we would need to do any type of an upper tract study like a noncontrast CAT scan to rule out urinary tract calculus or obstruction. However, he starts to spike fevers again and there is not another obvious source, then that may be necessary. I will follow along with you. Job ID: [id number]
--- NOTE | 2018-10-24 13:30 | CON ---
DATE OF CONSULTATION: 10/24/2018 REASON FOR CONSULTATION: Atrial fibrillation, recent sepsis. HISTORY OF PRESENT ILLNESS: Mr. Kelvin Carrillo is a delightful 82-year-old gentleman. The patient was admitted to the hospital with fever and shortness of breath. He was found to have urosepsis. In addition, it is noted he has atrial fibrillation. The patient is improving with intravenous diuretics. The patient otherwise is beginning to feel better. He has a chronic suprapubic catheter. The patient does have a history of chronic atrial fibrillation on medication. CURRENT MEDICATIONS: He is on currently: 1. Prednisone. 2. Enoxaparin. 3. Previously, he was on Xarelto at home. 4. Diltiazem CD 120 mg a day. 5. Digoxin 0.125 mg Wednesday, Wednesday, and Wednesday. 6. Antibiotics. ALLERGIES: NONE KNOWN. SOCIAL HISTORY: Cared for by his . REVIEW OF SYSTEMS: CONSTITUTIONAL: No significant weight gain or loss vision. VISION: No changes. HEARING: No changes. PULMONARY: No cough or wheezing. GASTROINTESTINAL: No nausea, vomiting, or diarrhea. SKIN: No rashes. NEUROLOGIC: No unilateral weakness or numbness. PSYCHIATRIC: No unusual depression or anxiety. PHYSICAL EXAMINATION: GENERAL: This is a very pleasant 82-year-old gentleman, in no distress. VITAL SIGNS: Blood pressure 109/63 and pulse 80 to 100, it is irregular. HEENT: Eyes, sclerae nonicteric. Mouth, mucous membranes moist. NECK: Supple. No lymphadenopathy. LUNGS: Clear. CARDIAC: Irregularly irregular. ABDOMEN: Soft and nontender. EXTREMITIES: Warm and dry. No clubbing, cyanosis, or edema. PERTINENT LABORATORY DATA: Hemoglobin is 10.7 slightly low. Sodium 139, BUN is 18, creatinine 0.84. Previous iron level was 28 back in 2016. Previous ferritin level in 2016 was 152. ASSESSMENT: 1. Probable urosepsis, improving. 2. Chronic atrial fibrillation. 3. Increase heart rate related to fever that is improved. 4. Mild anemia. PLAN: 1. Echocardiogram. 2. Continue current cardiac medicines. 3. Check BNP in the morning. 4. Check iron levels if he has low consideration for intravenous iron. Job ID: [id number]
--- NOTE | 2018-10-24 19:00 | PDOC.PN ---
- Subjective Encounter Start Date: 10/24/18 Encounter Start Time: 18:45 Subjective: f/u for suspected UTI in context of indwelling suprapubic cath -: on Cefepime. Feels ok overall. No fever spike per nursing today. - Objective Resuscitation Status - Order Detail: 10/23/18 16:36 Resuscitation Status Routine Resuscitation Status: DNAR: NO Resuscitation Discussed with: per , paper work in chart MAR Reviewed: Yes Vital Signs & Weight: Vital Signs (12 hours) Temp Pulse BP Pulse Ox 10/24/18 08:58 95 100/69 10/24/18 08:00 98.8 F 98 Weight Weight 136 lb 8 oz Most Recent Monitor Data Heart Rate from ECG 97 NIBP 106/78 NIBP BP-Mean 87 Respiration from ECG 34 SpO2 100 I&O: 10/23/18 10/24/18 10/25/18 06:59 06:59 06:59 Intake Total 1266 220 830 Output Total 600 300 Balance 1266 -380 530 Result Diagrams: 10/24/18 05:00 10/24/18 05:00 Additional Labs: Microbiology 10/22/18 13:26 Nasal swab Influenza Types A,B Direct EIA - Final 10/23/18 14:07 Venous blood - Left Hand Blood Culture - Preliminary Specimen has been received and culture in progress. No Growth to date. 10/23/18 14:02 Venous blood - Right Hand Blood Culture - Preliminary Specimen has been received and culture in progress. No Growth to date. 10/22/18 13:48 Urine santiago catheter Urine Culture - Preliminary Proteus mirabilis 10/22/18 13:16 Venous blood - Right Arm Blood Culture - Preliminary Coagulase Neg Staphylococcus 10/22/18 13:15 Venous blood - Left Arm Blood Culture - Preliminary NO GROWTH AT 48 HOURS Radiology Reviewed by me: Yes (PCXR - ? opacity in RLL) EKG Reviewed by me: Yes (Tele - A-fib in 80's) Phys Exam - Physical Examination Constitutional: NAD smiling, alert HEENT: PERRLA, sclera anicteric, oral pharynx no lesions Neck: no nodes, no JVD, supple, full ROM Respiratory: no wheezing, no rales, no rhonchi, clear to auscultation bilateral S1, S2 Cardiovascular: no significant murmur, no rub, gallop, irregular + suprapubic cath in place Gastrointestinal: soft, non-tender, no distention, positive bowel sounds Musculoskeletal: no edema, pulses present Neurological: normal sensation, moves all 4 limbs Skin: normal turgor, cap refill <2 seconds Dx/Plan (1) Complicated UTI (urinary tract infection) Code(s): N39.0 - URINARY TRACT INFECTION, SITE NOT SPECIFIED Status: Acute Comment: Suspected with current Proteus spp, Cefepime initiated but Proteus spp resistant, monitor clinically as organism could be colonizer (2) Sepsis Code(s): A41.9 - SEPSIS, UNSPECIFIED ORGANISM Status: Acute Comment: Suspected due to #1, supportive mgmt (3) Afib Code(s): I48.91 - UNSPECIFIED ATRIAL FIBRILLATION Status: Chronic Qualifiers: Atrial fibrillation type: chronic Comment: Rate-controlled, continue Diltiazem, Digoxin, Xarelto (4) BPH (benign prostatic hyperplasia) Code(s): N40.0 - BENIGN PROSTATIC HYPERPLASIA WITHOUT LOWER URINRY TRACT SYMP Status: Chronic Comment: s/p TURP (5) COPD (chronic obstructive pulmonary disease) Status: Chronic Qualifiers: Comment: Continue pulm supportive mgmt, Prednisone taper, Duonebs - Plan continue antibiotics, PT/OT, administrator social welfare, respiratory therapy, DVT proph w/ SCDs Stable currently -: Continue Cefepime another 24h then de-escalate -: D/C Levaquin -: Continue Diltiazem/Digoxin -: AM lab: Iron studies * .
--- NOTE | 2018-10-24 19:44 | PRG ---
DATE OF SERVICE: 10/24/2018 SUBJECTIVE: Mr. Carrillo is an 82-year-old male with a deep brain stimulator for movement disorder and most recently in the hospital with COPD exacerbation. He went to rehab. He has suprapubic catheter in place. His SP catheter was replaced, but you know his showed them how to modify the tip of the catheter because of history of obstruction with sediment caregivers at the [facility] refused to modify the end of the catheter. He has been home recently and has the appropriate modified catheter in place. He developed a febrile illness and was subsequently admitted. He is followed by Dr. Kapadia. Surprisingly, Proteus that is fairly antibiotic resistant was isolated. Despite broad-spectrum antimicrobial therapy, he has continued to have fever. Blood culture showed a Staph that is felt to be a contaminant. Chest x-ray maybe remarkable for mild increase in markings at the right base, but this is very subtle. I would think if he had an aspiration related pneumonia. Current antimicrobial therapy would be adequate. He certainly could have a viral illness as well given that starting to see a flu and more respiratory viruses. OBJECTIVE: GENERAL: He is in no distress today. His says he is fine, looking better. LUNGS: Clear. HEART: Regular rhythm. ABDOMEN: Soft and nontender. EXTREMITIES: Unremarkable. IMPRESSION: Fever without a clear source. He certainly could have an early mild pneumonia, but I would think he would have defervesced with current antimicrobial therapy. 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 He is not bacteremic with this. His says he is clinically much better than he was few days ago, which was an argument against this Proteus being a pathogenic organism since it is resistant to his current antimicrobial therapy. I will continue to follow with the other physicians. Job ID: [id number] [facility] HOSPITALJosef
[2018-10-24] MEDS: Digoxin 0.125 MG TAB PO SCH (21:12)
[2018-10-25] MEDS: Cefepime 2 GM in Sodium Chloride 0.9% 100 ML IVPB SCH ×2 (00:23→13:07)
[2018-10-25 06:50] LABS: Iron 17 ug/dL (65-175); Iron Binding Capacity, Total 188 mcg/dL (261-462)
[2018-10-25] MEDS: Enoxaparin Sodium 80 MG/0.8 ML SYRINGE SC SCH (08:30)
[2018-10-25] MEDS ORDERED: predniSONE 5 MG TAB ONE (08:34)
[2018-10-25] MEDS: predniSONE 20 MG TAB PO SCH (08:39)
--- NOTE | 2018-10-25 09:38 | PRG ---
DATE OF SERVICE: 10/25/2018 SUBJECTIVE: Mr. Carrillo is doing better today and feels more energetic. No complaints. OBJECTIVE: VITAL SIGNS: His blood pressure 109/74, pulse 88, irregular, it is atrial fibrillation which is chronic. LUNGS: Clear. CARDIAC: Irregularly irregular. ABDOMEN: Soft and nontender. EXTREMITIES: There is no edema. ASSESSMENT AND PLAN: 1. Diastolic heart failure, stable. 2. The patient has mild anemia and is iron deficient with an iron level of 17 and ferritin level 89.76. We will give him intravenous iron here, considering oral iron at home. 3. Okay with me anytime to resume Pradaxa instead of the enoxaparin. 4. Stable from a cardiac standpoint. Job ID: [id number]
[2018-10-25] MEDS: Iron, Sodium Ferric Gluconate 250 MG in Sodium Chloride 0.9% 100 ML IVPB SCH ×2 (11:26→23:28)
--- NOTE | 2018-10-25 17:42 | PRG ---
DATE OF SERVICE: 10/25/2018 SUBJECTIVE: He says he is feeling better. His feels he is doing better. OBJECTIVE: VITAL SIGNS: He is afebrile, heart rates in the 70s. Last temperature spike was at 1631 hours to 102.9. LUNGS: Clear. HEART: Regular rate and rhythm. ABDOMEN: Soft and nontender. IMPRESSION: 1. Chronic obstructive pulmonary disease, stable. 2. Movement disorder. 3. Deconditioning. 4. 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 His blood cultures are all negative except for one with a contaminant of coag-negative staph out of four. 5. Chronic atrial fibrillation with normal ejection fraction and no valvular heart disease. PLAN: Physical therapy. Home soon. Discontinuation of IV antibiotics might be considered. I doubt his urinary tract is the source of his fever. Job ID: [id number]
[2018-10-25] MEDS: Rivaroxaban 10 MG TAB PO SCH (19:55)
--- NOTE | 2018-10-25 22:32 | PDOC.PN ---
- Subjective Encounter Start Date: 10/25/18 Encounter Start Time: 16:30 Subjective: f/u for UTI in context of indwelling suprapubic catheter on -: Cefepime. Received IV Iron infusion today and feeling ok. - Objective Resuscitation Status - Order Detail: 10/23/18 16:36 Resuscitation Status Routine Resuscitation Status: DNAR: NO Resuscitation Discussed with: per , paper work in chart MAR Reviewed: Yes Vital Signs & Weight: Vital Signs (12 hours) Temp Pulse Ox 10/25/18 21:17 99 10/25/18 20:00 97.6 F 10/25/18 15:59 98.6 F 10/25/18 11:19 98.4 F Weight Weight 136 lb 8 oz Most Recent Monitor Data Heart Rate from ECG 74 NIBP 125/76 NIBP BP-Mean 92 Respiration from ECG 24 SpO2 97 I&O: 10/24/18 10/25/18 10/26/18 06:59 06:59 06:59 Intake Total 220 1110 Output Total 600 650 Balance -380 460 Result Diagrams: 10/24/18 05:00 10/24/18 05:00 Additional Labs: Microbiology 10/22/18 13:26 Nasal swab Influenza Types A,B Direct EIA - Final 10/23/18 14:07 Venous blood - Left Hand Blood Culture - Preliminary Specimen has been received and culture in progress. No Growth to date. 10/23/18 14:02 Venous blood - Right Hand Blood Culture - Preliminary Specimen has been received and culture in progress. No Growth to date. 10/22/18 13:48 Urine santiago catheter Urine Culture - Preliminary Proteus mirabilis 10/22/18 13:16 Venous blood - Right Arm Blood Culture - Preliminary Coagulase Neg Staphylococcus 10/22/18 13:15 Venous blood - Left Arm Blood Culture - Preliminary NO GROWTH AT 48 HOURS Laboratory Tests 10/08/17 07/18/18 10/25/18 15:54 15:17 06:21 Iron 17 L TIBC 188 L % Saturation 9 L Ferritin B-Natriuretic Peptide 128.1 H 232.3 H 10/25/18 10/25/18 06:21 06:21 Iron TIBC % Saturation Ferritin 89.76 B-Natriuretic Peptide 181.6 H Radiology Reviewed by me: Yes (2D echo - EF 55-60%, mod-severe LAE) EKG Reviewed by me: Yes (Tele - A-fib) Phys Exam - Physical Examination Constitutional: NAD smiling, alert HEENT: PERRLA, sclera anicteric, oral pharynx no lesions Neck: no nodes, no JVD, supple, full ROM Respiratory: no wheezing, no rales, no rhonchi, clear to auscultation bilateral S1, S2 Cardiovascular: no significant murmur, no rub, gallop, irregular Gastrointestinal: soft, non-tender, no distention, positive bowel sounds Musculoskeletal: no edema, pulses present Neurological: normal sensation, moves all 4 limbs Skin: normal turgor, cap refill <2 seconds Dx/Plan (1) Complicated UTI (urinary tract infection) Code(s): N39.0 - URINARY TRACT INFECTION, SITE NOT SPECIFIED Status: Acute Comment: Suspected with current Proteus spp, Cefepime initiated but Proteus spp resistant, monitor clinically as organism could be colonizer (2) Sepsis Code(s): A41.9 - SEPSIS, UNSPECIFIED ORGANISM Status: Acute Comment: Suspected due to #1, supportive mgmt (3) Afib Code(s): I48.91 - UNSPECIFIED ATRIAL FIBRILLATION Status: Chronic Qualifiers: Atrial fibrillation type: chronic Comment: Rate-controlled, continue Diltiazem, Digoxin, Xarelto (4) BPH (benign prostatic hyperplasia) Code(s): N40.0 - BENIGN PROSTATIC HYPERPLASIA WITHOUT LOWER URINRY TRACT SYMP Status: Chronic Comment: s/p TURP (5) COPD (chronic obstructive pulmonary disease) Status: Chronic Qualifiers: Comment: Continue pulm supportive mgmt, Prednisone taper, Duonebs - Plan plan discussed w/ family, continue antibiotics, PT/OT, social insurance specialist, speech therapy, respiratory therapy, out of bed/ambulate, DVT proph w/SCDs Stable currently -: Continue Cefepime another 24h -: OOB/PT -: Continue Digoxin/Diltiazem -: Continue Xarelto 20mg daily * Likely home 10/26/18 with HH/PT
[2018-10-26] MEDS: Cefepime 2 GM in Sodium Chloride 0.9% 100 ML IVPB SCH (02:03)
--- NOTE | 2018-10-26 09:42 | PRG ---
DATE OF SERVICE: 10/26/2018 SUBJECTIVE: Mr. Carrillo is having no chest pain or pressure. No cardiac complaints. OBJECTIVE: VITAL SIGNS: Blood pressure 140/115 is recorded, but that seems unlikely, another 140/100. Pulse is in the 80s, it is atrial fibrillation. LUNGS: Clear. CARDIAC: Irregular. ASSESSMENT: 1. Atrial fibrillation, rate controlled. 2. Sepsis, resolved. 3. Iron-deficiency anemia. PLAN: He received intravenous iron. He is back on Xarelto, off the enoxaparin. We will sign off. Please call if needed. Job ID: [id number]
[2018-10-26] MEDS: predniSONE 20 MG TAB PO SCH (09:59)
[2018-10-26] MEDS: Rivaroxaban 10 MG TAB PO SCH (09:59)
--- NOTE | 2018-10-26 10:11 | PDOC.PN ---
- Subjective Encounter Start Date: 10/26/18 Encounter Start Time: 10:00 Subjective: f/u for suspected UTI with indwelling suprapubic catheter tx with Cefepime. -: reports pt confused, pulled out IV and looks flushed. Has not ambulate -: with PT but sat in chair yesterday. - Objective Resuscitation Status - Order Detail: 10/23/18 16:36 Resuscitation Status Routine Resuscitation Status: DNAR: NO Resuscitation Discussed with: per , paper work in chart MAR Reviewed: Yes Vital Signs & Weight: Vital Signs (12 hours) Temp Pulse 10/26/18 09:59 71 10/26/18 04:25 97.9 F 10/26/18 00:47 98.4 F Weight Weight 136 lb 8 oz Most Recent Monitor Data Heart Rate from ECG 82 NIBP 141/115 NIBP BP-Mean 123 Respiration from ECG 24 SpO2 99 I&O: 10/25/18 10/26/18 10/27/18 06:59 06:59 06:59 Intake Total 1110 560 Output Total 650 950 Balance 460 -390 Result Diagrams: 10/24/18 05:00 10/24/18 05:00 Additional Labs: Microbiology 10/22/18 13:26 Nasal swab Influenza Types A,B Direct EIA - Final 10/23/18 14:07 Venous blood - Left Hand Blood Culture - Preliminary Specimen has been received and culture in progress. No Growth to date. 10/23/18 14:02 Venous blood - Right Hand Blood Culture - Preliminary Specimen has been received and culture in progress. No Growth to date. 10/22/18 13:48 Urine santiago catheter Urine Culture - Preliminary Proteus mirabilis 10/22/18 13:16 Venous blood - Right Arm Blood Culture - Preliminary Coagulase Neg Staphylococcus 10/22/18 13:15 Venous blood - Left Arm Blood Culture - Preliminary NO GROWTH AT 48 HOURS Laboratory Tests 10/08/17 07/18/18 10/25/18 15:54 15:17 06:21 Iron 17 L TIBC 188 L % Saturation 9 L Ferritin B-Natriuretic Peptide 128.1 H 232.3 H 10/25/18 10/25/18 06:21 06:21 Iron TIBC % Saturation Ferritin 89.76 B-Natriuretic Peptide 181.6 H EKG Reviewed by me: Yes (Tele - A-fib in 70's) Phys Exam - Physical Examination alert, flushed appearing, responds to questions HEENT: PERRLA, sclera anicteric, oral pharynx no lesions Neck: no nodes, no JVD, supple, full ROM Respiratory: no wheezing, no rales, no rhonchi, clear to auscultation bilateral S1, S2 Cardiovascular: no significant murmur, no rub, gallop, irregular Gastrointestinal: soft, non-tender, no distention, positive bowel sounds Musculoskeletal: pulses present, edema present Neurological: normal sensation, moves all 4 limbs Skin: normal turgor, cap refill <2 seconds Deviation from normal: + suprapubic catheter in place Dx/Plan (1) Complicated UTI (urinary tract infection) Code(s): N39.0 - URINARY TRACT INFECTION, SITE NOT SPECIFIED Status: Acute Comment: Suspected with current Proteus spp, Cefepime initiated but Proteus spp resistant, monitor clinically as organism could be colonizer, hold abx therapy and monitor clinically (2) Sepsis Code(s): A41.9 - SEPSIS, UNSPECIFIED ORGANISM Status: Acute Comment: Suspected due to #1, supportive mgmt (3) Afib Code(s): I48.91 - UNSPECIFIED ATRIAL FIBRILLATION Status: Chronic Qualifiers: Atrial fibrillation type: chronic Comment: Rate-controlled, continue Diltiazem, Digoxin, Xarelto (4) BPH (benign prostatic hyperplasia) Code(s): N40.0 - BENIGN PROSTATIC HYPERPLASIA WITHOUT LOWER URINRY TRACT SYMP Status: Chronic Comment: s/p TURP (5) COPD (chronic obstructive pulmonary disease) Status: Chronic Qualifiers: Comment: Continue pulm supportive mgmt, Prednisone taper, Duonebs - Plan plan discussed w/ family, PT/OT, social services coordinator, out of bed/ambulate Stable currently -: D/C Cefepime -: OOB with PT -: D/C Prednisone -: Likely home in 24h with [facility]/PT * .
[2018-10-26] MEDS ORDERED: ALPRAZolam 0.5 MG TAB PO PRN (11:06)
--- NOTE | 2018-10-26 12:46 | EKG ---
Test Reason : Blood Pressure : / mmHG Vent. Rate : 111 BPM Atrial Rate : 136 BPM P-R Int : 000 ms QRS Dur : 066 ms QT Int : 278 ms P-R-T Axes : 000 -58 092 degrees QTc Int : 378 ms Atrial fibrillation with rapid ventricular response Left axis deviation Nonspecific ST and T wave abnormality Abnormal ECG When compared with ECG of 23-OCT-2018 07:37, (Unconfirmed) Nonspecific T wave abnormality no longer evident in Anterior leads Confirmed by DR. Floyd HARRIS ([id number]) on 10/26/2018 12:46:03 PM Referred By: Confirmed By:DR. Floyd HARRIS
[2018-10-26] MEDS: Mometasone/Formoterol 120 PUFF INHALER INH SCH (18:19)
[2018-10-26] MEDS: Digoxin 0.125 MG TAB PO SCH (20:22)
[2018-10-26] MEDS: Ketotifen Fumarate 0.025% Ophth Soln 5 ml Bottle EA EYE SCH (20:24)
[2018-10-26] MEDS ORDERED: Spiriva 18 MCG CAP (Box of 5 Caps) INH SCH (21:00)
[2018-10-26] MEDS ORDERED: Non-Formulary Item 1 EACH (Sertraline Hcl [Zoloft] 100 MG) PO SCH (21:00)
[2018-10-26 23:48] VITALS: TEMP 97.3
[2018-10-27] MEDS: Mometasone/Formoterol 120 PUFF INHALER INH SCH (07:54)
[2018-10-27] MEDS ORDERED: predniSONE 20 MG TAB PO SCH (09:00)
[2018-10-27] MEDS: Ketotifen Fumarate 0.025% Ophth Soln 5 ml Bottle EA EYE SCH (09:19)
[2018-10-27] MEDS: Rivaroxaban 10 MG TAB PO SCH (09:19)
--- NOTE | 2018-10-27 10:58 | PRG ---
DATE OF SERVICE: 10/27/2018 SUBJECTIVE: Kelvin Carrillo is seen in the bedside chair. He says he is feeling better. OBJECTIVE: VITAL SIGNS: He is afebrile. Heart rate is in the 70s, blood pressure 110/62, respiratory rate 18. He was unsteady on his feet yesterday. LUNGS: Clear. HEART: Regular rhythm. ABDOMEN: Soft. IMPRESSION: Status post febrile illness and negative cultures. His urine cultures were felt to be colonizers from his suprapubic catheter. He had one coag-negative staph on blood culture, three other cultures are negative. He clinically improved on antibiotics, urinary pathogens were resistant to. His wanted him to get back on Xanax at bedtime. She says he does better during the day if he gets this. His nebulizer treatments are only ordered p.r.n. He probably needs these four times a day. He does have significant obstructive lung disease. Once he is walking, he can go home. His does not want him going back to rehab. Etiology of his fever is not entirely clear, may have just been a viral illness. He has a fall risk with his anticoagulants, but fortunately has not fallen. We will continue to follow with the other physicians caring for him. Job ID: [id number]
--- NOTE | 2018-10-27 11:18 | DIS ---
DATE OF ADMISSION: 10/22/2018 DATE OF DISCHARGE: 10/27/2018 DISCHARGE DIAGNOSES: 1. Complicated urinary tract infection with Proteus colonization. 2. Sepsis, suspected secondary to complicated urinary tract infection with Proteus colonization, resolved. 3. Atrial fibrillation, chronic rate controlled. 4. Chronic anticoagulation, with Xarelto. 5. Chronic indwelling suprapubic catheter. 6. Chronic obstructive pulmonary disease, stable. CONSULTATIONS: 1. Dr. Lester with Pulmonology/Critical Care Service. 2. Dr. Mao with Cardiology Service. 3. Dr. Baltazar Kapadia, with Urology Service. PERTINENT LABORATORY AND X-RAY FINDINGS: Hemoglobin A1c 5.6. Lactic acid level ranged between 1.2 to 2.1. Serum iron level 17, TIBC 188, percent saturation 9, and ferritin 90. LFTs within normal limits. BNP 182. CBC showed a white blood cell count ranging between 11.0 to 14.9, hemoglobin ranged between 11 to 13.7. Blood cultures x2 dated 10/22/2018, showed 1/2 positive for coagulase-negative Staphylococcus skin contaminant. Influenza A and B antigen dated 10/22/2018, negative. Urine culture dated 10/22/2018, showed greater than 100,000 colonies of Proteus mirabilis and unable to quantitate Pseudomonas aeruginosa. Blood cultures x2 dated 10/23/2018, show no growth at 48 hours. Portable chest x-ray dated 10/22/2018, showed no acute cardiopulmonary process. Portable chest x-ray dated 10/23/2018, showed no acute cardiopulmonary process. 2D transthoracic echocardiogram dated 10/25/2018, showed ejection fraction of 55% to 60%. [id number] left atrial enlargement. Mild tricuspid regurgitation. HOSPITAL COURSE: The patient was initially admitted after presenting with increased shortness of breath and generalized weakness. The patient was initially managed for acute on chronic hypoxic respiratory failure likely secondary to atrial fibrillation with rapid ventricular response. The patient received general pulmonary supportive management in addition to oxygen supplementation. The patient was placed on Cardizem infusion and evaluated by the Cardiology Service. The patient was resumed on his home regimen of metoprolol and the Cardizem infusion was discontinued. The patient remained rate controlled for the remainder of the hospital course with controlled rates in the 80s to 90s. Metabolic workup revealed evidence of potential urinary tract infection in the context of a chronic suprapubic catheter. Urine culture did show Proteus and Pseudomonas species, and the patient was evaluated by the Urology Service. The patient was treated with IV antibiotic therapy to include cefepime, however, the consensus with Proteus organism most likely a colonizer and not a true pathogen. The patient did receive IV antibiotic therapy for the majority of his hospital course, discontinuing the therapy prior to discharge. The patient was noted with generalized weakness and needing assistance for standing and walking short distances with contact guard assistance. The patient was deemed appropriate candidate for ongoing home health care in addition to physical and occupational therapy. I have examined the patient at the time of discharge and discussed followup instructions with the patient and his . The patient and verbalized understanding and in agreement with discharge plan and ready for discharge on 10/27/2018. DISCHARGE MEDICATIONS: 1. ProAir HFA 2 puffs inhaled q.i.d. p.r.n. 2. Alprazolam 0.25 mg p.o. at bedtime and 0.5 mg p.o. b.i.d. p.r.n. 3. Digoxin 0.125 mg p.o. Wednesday, Wednesday, Wednesday, and Wednesday. 4. Cardizem CD 120 mg p.o. daily. 5. Lidex 0.05% one application topically b.i.d. p.r.n. 6. Ketotifen fumarate 0.025% ophthalmic solution one drop to each eye b.i.d. 7. Dulera 2 puffs inhaled b.i.d. 8. Multivitamin 1 tab p.o. daily. 9. Nystatin powder one application topically q.i.d. p.r.n. 10. Protonix 40 mg p.o. daily. 11. Xarelto 20 mg p.o. daily. 12. Zoloft 100 mg p.o. at bedtime. 13. Spiriva HandiHaler 18 mcg inhaled at bedtime. 14. Vitamin B12 of 1000 mcg p.o. daily. 15. Folic acid 1 mg p.o. daily. FOLLOWUP: The patient will follow up with his primary care provider, Dr. Gulshan Fitzgerald within 7 days of discharge. The patient may follow up with Dr. Gustabo Lester with Pulmonology Service. The patient may follow up with Dr. Baltazar Kapadia with Urology Service and to call his office for appointment, time, and date. CONDITION ON DISCHARGE: Fair. ACTIVITY: Ad mere, rolling walker with contact/standby assistance. The patient will receive ongoing home physical and occupational therapy. DIET: Heart healthy. CODE STATUS: Do not attempt resuscitation. DISPOSITION: Home with [facility] including Physical and Occupational Therapy on 10/27/2018. TIME SPENT: Total time preparing and coordinating discharge is 36 minutes. Job ID: [id number]
[2018-10-27 11:59] VITALS: BP 110/62
[2018-11-04] MEDS ORDERED: predniSONE 5 MG TAB PO SCH (09:00)
== END 2018-10-27 11:42 | disposition home health service (06) | DRG 698 ==
LOC: ERS 12:53 → T4-B 16:24 → IMCU/EMU 10-23 16:06
PROVIDERS: ADMIT Internal Medicine; ATTEND Internal Medicine
DX: T83.511A Infection and inflammatory reaction due to indwelling urethral catheter, initial encounter (principal); A41.9 Sepsis, unspecified organism; I50.32 Chronic diastolic (congestive) heart failure; N39.0 Urinary tract infection, site not specified; N40.1 Benign prostatic hyperplasia with lower urinary tract symptoms; N39.498 Other specified urinary incontinence; B96.4 Proteus (mirabilis) (morganii) as the cause of diseases classified elsewhere; J44.9 Chronic obstructive pulmonary disease, unspecified; I48.2 Chronic atrial fibrillation; Z66 Do not resuscitate; I11.0 Hypertensive heart disease with heart failure; D50.9 Iron deficiency anemia, unspecified; Z79.01 Long term (current) use of anticoagulants; Z87.891 Personal history of nicotine dependence
CPT/HCPCS: 36415; 71045; 80053; 81003; 81015; 82728; 82805; 83036; 83540; 83550; 83605; 83880; 85025; 87040; 87077; 87086; 87149; 87186; 87804; 93005; 93010; 93306; 94664; 96361; 96365; J0692; J0696; J1650; J1956; J2405; J2916; J3490; J7050; J7512; J7620

== ENCOUNTER 2018-11-05 22:33 | Inpatient (IN) | payer MEDICARE ==
[2018-11-05 23:00] LABS: Actual Bicarbonate (HCO3a) 22.5 mEq/L (22-28); Analyzer IN Cardio ER; Base Excess (BEa) -0.5 mEq/L (-2.0 to +3.0); CO2 Tension 31.8 mmHg (35.0-45.0); Calcium, Ionized 1.16 mmol/L (1.12-1.30); Carboxyhemoglobin (COHb) 0.1 gm% (0.0-3.0); Hemoglobin (Hb) 11.7 g/dL (14.0-18.0); O2 Tension (PaO2) 93.7 mmHg (> 60.0); Potassium - ABG Lab 3.27 mmol/L (3.70-5.30); pH, Arterial 7.47 (7.35-7.45)
[2018-11-05 23:01] LABS: Puncture Site LRA
[2018-11-05 23:09] LABS: #Eosinphils 0.1 thou/uL (0.0-0.7); #Lymphocytes 0.8 thou/uL (1.20-3.40); #Monocytes 0.5 thou/uL (0.11-0.59); #Neutrophils 11.1 thou/uL (1.40-6.50); %Basophils 0.3 % (0.0-1.0); %Eosinophils 0.5 % (0.0-10.0); %Lymphocytes 6.3 % (21.0-51.0); %Monocytes 3.8 % (0.0-10.0); %Neutrophils 89.1 % (42.0-75.0); Hemoglobin 11.3 g/dL (14.0-18.0); Mean Corpuscular HGB CONC 30.4 g/dL (32.0-36.0); Mean Corpuscular Hemoglobin 27.9 pg (27.0-31.0); Mean Corpuscular Volume 91.8 fL (78.0-98.0); Mean Platelet Volume 8.5 fL (7.4-10.4); Platelet Count 316 thou/uL (130-400); RBC Distribution Width 16.3 % (11.5-14.5); Red Blood Cell (RBC) Count 4.03 mill/uL (4.70-6.10); White Blood Cell (WBC) Count 12.5 thou/uL (4.8-10.8)
--- NOTE | 2018-11-05 23:13 | RAD ---
CHEST ONE VIEW 11/05/18 HISTORY: Dyspnea. COMPARISON: 10/23/18. FINDINGS: Chronic lung hyperinflation. Scarring of both lower lobes. No pneumothorax. The cardiac silhouette and mediastinal contours are similar. Right mid lung consolidation has improved. IMPRESSION: No acute intrathoracic abnormality. POS: [facility]
[2018-11-05] MEDS ORDERED: Piperacillin/Tazobactam 4.5 GM VIAL ONE (23:15)
[2018-11-05 23:25] LABS: Squamous Epithelial 0-3 HPF (0-3)
[2018-11-05 23:27] LABS: Bilirubin Moderate (Negative); Blood, Urine Large (Negative); Clarity TURBID (Clear); Glucose, Urine (Dipstick) Negative (Negative); Leukocyte Large (Negative); Nitrite Positive (Negative); Protein, Urine (Dipstick) 300 mg/dL (Neg-Trace); Specific Gravity, Urine 1.024 (1.002-1.036); pH, Urine 5.5 (5.0-9.0)
[2018-11-05 23:28] LABS: ALT (SGPT) 25 U/L (8-55); AST (SGOT) 35 U/L (5-34); Albumin 3.6 g/dL (3.4-4.8); Alkaline Phosphatase 144 U/L (40-150); Anion Gap 17 mmol/L (10-20); BUN (Urea Nitrogen) 14 mg/dL (8.4-25.7); Bilirubin, Total 0.3 mg/dL (0.2-1.2); Calc. Creatinine Clearance 0 mL/min (70-130); Calcium 9.2 mg/dL (7.8-10.44); Carbon Dioxide 22 mmol/L (23-31); Chloride 102 mmol/L (98-107); Estimated GFR-MDRD 88; Globulin 3.7 g/dL (2.4-3.5); Glucose 132 mg/dL (83-110); Potassium 3.7 mmol/L (3.5-5.1); Protein, Total 7.3 g/dL (5.8-8.1); Sodium 137 mmol/L (136-145)
[2018-11-05 23:29] LABS: Pathc Cast-AUWi Flag 18.75 (0-2.49); Yeast-AUWi Flag 656.4 (0-25.0)
[2018-11-05 23:32] LABS: Bacteria/HPF 3+ HPF (None Seen); RBC/HPF GREATER THAN 50-TNTC HPF (0-3); Renal Epithelial 0-3 HPF (0-3)
[2018-11-05 23:35] LABS: Hyaline Casts/LPF NONE SEEN LPF (0-3 Hyaline)
[2018-11-06] MEDS ORDERED: Lorazepam 2 MG/ML VIAL SLOW IVP PRN (00:36)
[2018-11-06] MEDS ORDERED: Albuterol Sulfate 2.5 mg/3 ml Neb NEB PRN (01:52)
[2018-11-06] MEDS ORDERED: Ipratropium Bromide 2.5 ml Neb NEB PRN (01:52)
[2018-11-06] MEDS ORDERED: Bisacodyl 5 MG TAB PO PRN (01:52)
[2018-11-06] MEDS ORDERED: Ondansetron PF 4 MG/2 ML Vial IVP PRN (01:52)
[2018-11-06] MEDS ORDERED: Sodium Chloride 0.9% 1,000 ML IV SCH (01:52)
[2018-11-06] MEDS ORDERED: HYDROcodone/Acetaminophen 5/325 mg Tablet PO PRN (01:52)
[2018-11-06] MEDS ORDERED: Acetaminophen 325 MG TAB PO PRN (01:52)
--- NOTE | 2018-11-06 02:47 | HP ---
PRIMARY CARE PHYSICIAN: Dr. Gulshan Fitzgerald CHIEF COMPLAINT: Shortness of breath. HISTORY OF PRESENT ILLNESS: The patient is an 83-year-old male with past medical history of UTI; chronic suprapubic catheter; atrial fibrillation, on Xarelto; COPD; and hypertension, who presents to the emergency department with his for shortness of breath. The patient was recently discharged from the ER after found to have sepsis due to UTI. The patient was seen by Urology, Pulmonary, and Cardiology. The patient today became short of breath. The patient does not use CPAP or BiPAP at home. The patient does have a nebulizer machine and was given to him during the day, which did not help him much. The patient's present at the bedside, who gave most of the history. The patient was noted to be short of breath in the ER and was started on BiPAP. The patient's heart rate was noted to be elevated but improved after the BiPAP. Levaquin, Zosyn, vancomycin, and DuoNeb. The patient was given 1 L of IV fluids. reports that pt choked on meds. Per pt had ST eval and was started on pureed diet. When pt went home, started on chopped diet b/c pt did not like pureed diet. Pt did not take his Xarelto for the last 2 days. PAST MEDICAL HISTORY: Atrial fibrillation, COPD, chronic UTI, BPH, suprapubic catheter, and hypertension. PAST SURGICAL HISTORY: Bilateral hip replacement, neurostimulator, suprapubic catheter, and TURP. SOCIAL HISTORY: The patient is a former smoker. Denies alcohol or drug use. FAMILY HISTORY: is unable to tell the family history. HOME MEDICATIONS: The patient is takin. Xarelto. 2. Nebulizers. 3. ProAir. 4. Xanax. 5. Digoxin. 6. Cardizem. 7. Dulera. 8. Zoloft. 9. Spiriva. 10. Vitamin B12. 11. Folic acid. REVIEW OF SYSTEMS: Unable to perform as the patient was anxious and was on BiPAP. PHYSICAL EXAMINATION: GENERAL: The patient is alert, but appeared to be a bit anxious due to BiPAP. VITAL SIGNS: Blood pressure 120/80, pulse 104, respiratory rate 38, temperature 98.8, and O2 saturation 100% on BiPAP. HEENT: Head, atraumatic. Ears, no gross abnormality noted. Nose, no bleeding. Eyes, extraocular movements are intact. Throat, no exudate. NECK: No lymphadenopathy noted. CARDIOVASCULAR: The patient appeared to be tachycardic. Irregular rate and rhythm. No murmur, rubs, or gallops. RESPIRATORY: Diminished breath sounds. Scattered wheezes. ABDOMEN: Soft and nontender. Suprapubic catheter noted, draining dark urine. : Suprapubic catheter as mentioned above. EXTREMITIES: Lower extremities, no edema noted. NEUROLOGIC: The patient is alert, but appeared to be anxious. SKIN: No rashes noted. LABORATORY DATA: Sodium 137, potassium 3.7, chloride 102, carbon dioxide 22, BUN 14, creatinine 0.84, and glucose 132. Lactic acid 2.3. LFTs generally noted to be normal. White blood cell count 12.5, hemoglobin 11.3, hematocrit 37, and platelets 316. Blood gases; pH of 7.47, pCO2 of 31.8, pO2 of 93.7, and bicarb 22.5. Urine appeared to be positive for proteins, trace ketones, blood, nitrites positive, bilirubin positive, leukocyte esterase positive, bacteria positive. Influenza tests per ER negative. DIAGNOSTIC DATA: The patient's EKG reviewed. The patient noted to be in atrial fibrillation with heart rate of 105. Chest x-ray, negative for any acute infection. CT angiogram of the chest: No PE but concern for aspiration PNA ASSESSMENT: 1. Chronic obstructive pulmonary disease exacerbation. 2. Llgsu-up-[id number] respiratory failure with hypoxia. 3. Atrial fibrillation with rapid ventricular response. 4. UA positive for leukocyte esterase, nitrites, and bacteria. 5. Hypertension. 6. Urinary retention with suprapubic tube placement. 7. Aspiration PNA likely due to diet type non-compliance PLAN: 1. The patient's acute respiratory failure with hypoxia is likely due to COPD exacerbation and aspiration PNA. The patient was given vancomycin, Zosyn, and Levaquin along with DuoNeb and IV fluids in the ER. Cont levquin, start clindamycin. I will start the patient on steroids. We will continue BiPAP at this point. We will wean off BiPAP per RT. Influenza test negative. We will follow cultures. I spoke to and she would like the patient's scrum master, Dr. Letser to be involved. Recommend calling Dr. Lester in the morning to see if he wants to be on the consult. probiotics added 2. Leukocytosis: Continue to trend. 3. Atrial fibrillation with RVR. The patient's heart rate elevated due to respiratory distress and anxiety. The patient had been on Xarelto for 2 days. Continue home medications once verified. The patient's Xarelto will be restarted. I reviewed last echocardiogram and the patient's ejection fraction was noted to be normal last month. 4. Chronic indwelling suprapubic catheter. The patient's UA seems to be concerning for infection. The patient has chronic catheter and he is asymptomatic. I do not think so, the patient has urinary tract infection. However, the patient is already on antibiotics for COPD. 5. Hypertension. Continue home medication plus hydralazine p.r.n. added. 6. Aspiration PNA: plan as mentioned above. NPO, ST fransiscoal ordered. Discussed with and educated on diet recs 7. The patient is a DNR per request from and the patient. Paperwork complete. 8. Medical power of assistant county attorney, . 9. DVT prophylaxis. We will continue the patient's Xarelto. Job ID: [id number] MTDD
[2018-11-06 03:51] LABS: #Basophils 0.1 thou/uL (0.0-0.2); #Monocytes 0.5 thou/uL (0.11-0.59); #Neutrophils 8.4 thou/uL (1.40-6.50); %Basophils 0.5 % (0.0-1.0); %Eosinophils 0.5 % (0.0-10.0); %Lymphocytes 10.1 % (21.0-51.0); %Monocytes 5.4 % (0.0-10.0); %Neutrophils 83.6 % (42.0-75.0); Hemoglobin 10.4 g/dL (14.0-18.0); Mean Corpuscular Hemoglobin 27.8 pg (27.0-31.0); Mean Corpuscular Volume 92.6 fL (78.0-98.0); Mean Platelet Volume 7.6 fL (7.4-10.4); Platelet Count 280 thou/uL (130-400); RBC Distribution Width 16.3 % (11.5-14.5); Red Blood Cell (RBC) Count 3.75 mill/uL (4.70-6.10)
[2018-11-06 04:23] LABS: Anion Gap 15 mmol/L (10-20); BUN (Urea Nitrogen) 12 mg/dL (8.4-25.7); Calc. Creatinine Clearance 0 mL/min (70-130); Calcium 8.9 mg/dL (7.8-10.44); Carbon Dioxide 25 mmol/L (23-31); Chloride 104 mmol/L (98-107); Estimated GFR-MDRD Greater than 90; Glucose 90 mg/dL (83-110); Potassium 3.6 mmol/L (3.5-5.1); Sodium 140 mmol/L (136-145)
[2018-11-06] MEDS ORDERED: methylPREDNISolone Sod Succ 40 MG VIAL ONE (08:09)
[2018-11-06] MEDS ORDERED: Clindamycin/D5W 600 mg/50 ml Premix Bag ONE (08:11)
[2018-11-06] MEDS: methylPREDNISolone Sod Succ 40 MG VIAL IVP SCH ×4 (08:27→23:52)
[2018-11-06] MEDS: Clindamycin/D5W 600 MG in Premix Bag 1 BAG IVPB SCH ×3 (08:28→20:08)
[2018-11-06 13:25] VITALS: BMI 19.4
[2018-11-06] MEDS ORDERED: Prevnar 13-Val Conj/PF 0.5 ML SYRINGE IM ONE (13:45)
--- NOTE | 2018-11-06 13:54 | PDOC.PN ---
- Subjective Encounter Start Date: 11/06/18 Encounter Start Time: 13:30 Subjective: f/u for resp failure and concern for aspiration event with dysphagia. -: Receiving BiPAP NIMV and comfortable. - Objective Resuscitation Status - Order Detail: 11/06/18 00:37 Resuscitation Status Routine Resuscitation Status: DNAR: NO Resuscitation Discussed with: who said pt likes to be DNR. MAR Reviewed: Yes Vital Signs & Weight: Vital Signs (12 hours) Pulse Resp BP Pulse Ox 11/06/18 12:52 85 28 H 134/93 H 100 Weight Weight 139 lb 8 oz Result Diagrams: 11/06/18 03:31 11/06/18 03:31 Additional Labs: Microbiology 11/05/18 23:07 Urine santiago catheter Urine Culture - Preliminary 11/05/18 23:03 Venous blood - Right Arm Blood Culture - Preliminary Specimen has been received and culture in progress. No Growth to date. 11/05/18 23:03 Venous blood - Left Hand Blood Culture - Preliminary Specimen has been received and culture in progress. No Growth to date. Laboratory Tests 11/05/18 11/05/18 11/06/18 23:03 23:03 02:39 WBC 12.5 H Hgb 11.3 L Neutrophils % 89.1 H Lactic Acid 2.3 H 2.0 11/06/18 03:31 WBC Hgb Neutrophils % Lactic Acid 2.0 Radiology Reviewed by me: Yes (PCXR - no acute infiltrate) EKG Reviewed by me: Yes (Tele - A-fib in 70's) Phys Exam - Physical Examination somnolent on NIMV HEENT: PERRLA, sclera anicteric, oral pharynx no lesions Neck: no nodes, no JVD, supple, full ROM Respiratory: no wheezing, no rales, no rhonchi, clear to auscultation bilateral S1, S2 Cardiovascular: no significant murmur, no rub, gallop, irregular Gastrointestinal: soft, non-tender, no distention, positive bowel sounds Musculoskeletal: no edema, pulses present Neurological: normal sensation, moves all 4 limbs Skin: normal turgor, cap refill <2 seconds Deviation from normal: Suprapubic catheter in place with paul urine Dx/Plan (1) Acute respiratory failure with hypoxia Code(s): J96.01 - ACUTE RESPIRATORY FAILURE WITH HYPOXIA Status: Acute Comment: Likely due to aspiration event of small amount of food, continue BiPAP NIMV, wean off NIMV as clinically indicated (2) Aspiration into airway Code(s): T17.908A - UNSP FB IN RESP TRACT, PART UNSP CAUSING OTH INJURY, INIT Status: Acute Comment: Suspected give dysphagia, continue Clindamycin/Levaquin , Duonebs, ST evaluation, NPO (3) Afib Code(s): I48.91 - UNSPECIFIED ATRIAL FIBRILLATION Status: Chronic Qualifiers: Atrial fibrillation type: chronic Comment: Rate-controlled, continue Diltiazem, Digoxin, Xarelto (4) COPD (chronic obstructive pulmonary disease) Status: Chronic Qualifiers: Comment: Continue pulm supportive mgmt, unclear if true exacerbation, continue Solumedrol, O2 support (5) Lactic acidosis Code(s): E87.2 - ACIDOSIS Status: Acute Comment: Mild elevation now improving, continue current mgmt as outlined above (6) Bladder outlet obstruction Code(s): N32.0 - BLADDER-NECK OBSTRUCTION Status: Chronic Comment: Continue chronic suprapubic catheter, no current evidence of infectious process - Plan continue antibiotics, PT/OT, delinquency prevention social worker, speech therapy, respiratory therapy, DVT proph w/SCDs Continue supportive mgmt -: BiPAP NIMV weaning as clinically indicated -: Continue Clindamycin/Levaquin -: Duonebs, Solumedrol -: ST evaluation for dysphagia * AM lab: BMP, CBC
[2018-11-06] MEDS: Lactinex Tablet PO SCH (14:18)
--- NOTE | 2018-11-06 15:36 | CT ---
PRELIMINARY REPORT/[facility]/EMERGENTY AFTER-HOURS PROCEDURE CT Angiography Chest With Contrast EXAM DATE/TIME: 11/06/2018 12:45 AM CLINICAL HISTORY: 83 years old, male; Signs and symptoms; Cough and shortness of breath; Patient HX: Elevated ddimer; P er ems PT was recently discharged for urosepsis. Today was eating dinner and had possible aspiration. Since then had progressively worsening SOB. Spo2 80% on scene not responsive to o2. Started on cpap with improvement of symptoms; Additional info: PT unable to follow breathing Instruct ions TECHNIQUE: Axial computed tomographic angiography images of the chest with intravenous contrast using CT angiogr aphy protocol. MIP reconstructed images were created and reviewed. COMPARISON: 08/28/18 FINDINGS: Limitations: Limited study due to breathing motion. Pulmonary arteries: Limited evaluation due to motion and streak artifacts, however there is no eviden ce of pulmonary embolism. Aorta: Stable ectasia of the ascending aorta. No acute findings. Atherosclerotic calcifications. Lungs: Limited evaluation of the lung parenchyma due to motion. Obliteration of the right lower lobe segmental and subsegmental bronchi likely related to secretions/aspirates. New right lower lobe perip heral focal masslike opacity at the base. Other new right lower lobe peripheral ill-defined nodular opacities. Severe centrilobular emphysema. Apical scarring. No change in the left fissural 2 cm nodul e compared to recent prior study. Pleural space: No pneumothorax. No pleural effusion. Heart: No significant cardiomegaly. Coronary calcifications. No pericardial effusion. Lymph nodes: No significant adenopathy. Bones/joints: Stable osseous structures. No acute fracture. Soft tissues: No acute findings. Left chest wall pacer generator. IMPRESSION: No evidence of pulmonary embolism. Obliteration of the right lower lobe segmental and subsegmental bronchi likely related to secretions/ aspirates. New right lower lobe peripheral ill-defined nodular opacities are likely related to infection/inflamm ation/aspiration. New right basilar masslike opacity could also relate to the same process and focal atelectasis. Recommend followup in 2-3months to ensure resolution. No change in the left fissural nodule compared to recent prior study; also compare with older studies and recommend followup as indicated. Other findings above. Thank you for allowing us to participate in the care of your patient. Dictated and Authenticated by: Jovanni Sellers MD 11/06/2018 1:54 AM Central Time ([place] & [place]) FINAL REPORT CT ANGIOGRAM OF THE CHEST: HISTORY: Respiratory failure. Elevated D-dimer. COMPARISON: None. CORRELATION: Noncontrast chest CT 08/28/2018. FINDINGS: This report is in agreement with the preliminary report by [facility]. There is no evidence of pulmonary ar nubia embolism to the level of the segmental arteries. Emphysematous changes throughout the lung pare nchyma are essentially chronic. There is a new opacity in the right lower lobe likely representing a reas of infiltrate. There does appear to be opacification in the right lower lobe segment or subsegm ental bronchi likely due to aspiration or secretion. Followup imaging in 3 months is recommended to ensure resolution of the newly identified opacities in the right lower lobe. POS: [facility]
[2018-11-06] MEDS: Rivaroxaban 10 MG TAB PO SCH (15:49)
[2018-11-06] MEDS ORDERED: ISOVUE-370 76%-LOCM 1 ML ONE (16:54)
[2018-11-06] MEDS: Mometasone/Formoterol 120 PUFF INHALER INH SCH (18:31)
[2018-11-06] MEDS: Ketotifen Fumarate 0.025% Ophth Soln 5 ml Bottle EA EYE SCH (20:10)
[2018-11-06] MEDS ORDERED: Spiriva 18 MCG CAP (Box of 5 Caps) INH SCH (21:00)
[2018-11-07] MEDS: Clindamycin/D5W 600 MG in Premix Bag 1 BAG IVPB SCH ×4 (01:27→19:29)
[2018-11-07 05:00] LABS: Band 13 % (5-11); Hemoglobin 10.1 g/dL (14.0-18.0); Lymphocytes 11 % (21-51); MDiff Complete? YES; Mean Corpuscular HGB CONC 31.5 g/dL (32.0-36.0); Mean Corpuscular Hemoglobin 28.7 pg (27.0-31.0); Mean Corpuscular Volume 91.2 fL (78.0-98.0); Mean Platelet Volume 8.3 fL (7.4-10.4); Monocytes 1 % (0-10); Neutrophil 75 % (42-75); Platelet Count 256 thou/uL (130-400); Platelet Morphology Comment Appears Adequate; RBC Distribution Width 16.2 % (11.5-14.5); Red Blood Cell (RBC) Count 3.52 mill/uL (4.70-6.10); White Blood Cell (WBC) Count 4.5 thou/uL (4.8-10.8)
[2018-11-07 05:07] LABS: Anion Gap 13 mmol/L (10-20); BUN (Urea Nitrogen) 14 mg/dL (8.4-25.7); Calc. Creatinine Clearance 72 mL/min (70-130); Calcium 8.9 mg/dL (7.8-10.44); Carbon Dioxide 24 mmol/L (23-31); Chloride 107 mmol/L (98-107); Estimated GFR-MDRD Greater than 90; Glucose 144 mg/dL (83-110); Potassium 3.8 mmol/L (3.5-5.1); Sodium 140 mmol/L (136-145)
[2018-11-07] MEDS: methylPREDNISolone Sod Succ 40 MG VIAL IVP SCH (05:57)
[2018-11-07] MEDS: Mometasone/Formoterol 120 PUFF INHALER INH SCH ×2 (08:34→18:36)
[2018-11-07] MEDS: Ketotifen Fumarate 0.025% Ophth Soln 5 ml Bottle EA EYE SCH ×2 (08:56→19:29)
[2018-11-07] MEDS: Rivaroxaban 10 MG TAB PO SCH ×2 (08:56→09:58)
[2018-11-07] MEDS: Lactinex Tablet PO SCH (08:56)
--- NOTE | 2018-11-07 11:39 | PDOC.PN ---
- Subjective Encounter Start Date: 11/07/18 Encounter Start Time: 11:35 Subjective: f/u for dsypnea likely due to aspiration event with hx of dysphagia. -: Off BiPAP and O2 via NC. - Objective Resuscitation Status - Order Detail: 11/06/18 00:37 Resuscitation Status Routine Resuscitation Status: DNAR: NO Resuscitation Discussed with: who said pt likes to be DNR. MAR Reviewed: Yes Vital Signs & Weight: Vital Signs (12 hours) Temp Pulse Resp Pulse Ox 11/07/18 11:03 98.6 F 11/07/18 08:30 93 34 H 99 11/07/18 08:28 91 37 H 99 11/07/18 07:00 97.6 F 11/07/18 04:00 97.3 F L 11/07/18 02:28 77 18 100 11/07/18 00:00 98.4 F Weight Weight 139 lb 8 oz Most Recent Monitor Data Heart Rate from ECG 95 NIBP 112/78 NIBP BP-Mean 89 Respiration from ECG 32 SpO2 100 I&O: 11/06/18 11/07/18 11/08/18 06:59 06:59 06:59 Intake Total 1320 Output Total 625 Balance 695 Result Diagrams: 11/07/18 04:20 11/07/18 04:20 Additional Labs: Microbiology 11/05/18 23:07 Urine santiago catheter Urine Culture - Preliminary 11/05/18 23:03 Venous blood - Right Arm Blood Culture - Preliminary Specimen has been received and culture in progress. No Growth to date. 11/05/18 23:03 Venous blood - Left Hand Blood Culture - Preliminary Specimen has been received and culture in progress. No Growth to date. Laboratory Tests 11/05/18 11/05/18 11/06/18 23:03 23:03 02:39 WBC 12.5 H Hgb 11.3 L Neutrophils % 89.1 H Band Neuts % (Manual) Lactic Acid 2.3 H 2.0 11/06/18 11/06/18 11/07/18 03:31 03:31 04:20 WBC 10.0 Hgb 10.4 L Neutrophils % Band Neuts % (Manual) 13 H Lactic Acid 2.0 EKG Reviewed by me: Yes (Tele - A-fib in 90's) Phys Exam - Physical Examination Constitutional: NAD alert, responsive, smiling HEENT: PERRLA, sclera anicteric, oral pharynx no lesions Neck: no nodes, no JVD, supple, full ROM Respiratory: no wheezing, no rales, no rhonchi, clear to auscultation bilateral S1, S2 Cardiovascular: no significant murmur, no rub, gallop, irregular Gastrointestinal: soft, non-tender, no distention, positive bowel sounds Musculoskeletal: no edema, pulses present resting tremor Neurological: normal sensation, moves all 4 limbs Skin: normal turgor, cap refill <2 seconds Deviation from normal: Santiago with paul, clear urine Dx/Plan (1) Acute respiratory failure with hypoxia Code(s): J96.01 - ACUTE RESPIRATORY FAILURE WITH HYPOXIA Status: Acute Comment: Likely due to aspiration event of small amount of food, weaned off O2 support currently (2) Aspiration into airway Code(s): T17.908A - UNSP FB IN RESP TRACT, PART UNSP CAUSING OTH INJURY, INIT Status: Acute Comment: Suspected given dysphagia, continue Clindamycin/ Levaquin, Duonebs, ST recommending modified diet with nectar thick liquids (3) Afib Code(s): I48.91 - UNSPECIFIED ATRIAL FIBRILLATION Status: Chronic Qualifiers: Atrial fibrillation type: chronic Comment: Rate-controlled, continue Diltiazem, Digoxin, Xarelto (4) COPD (chronic obstructive pulmonary disease) Status: Chronic Qualifiers: Comment: Continue pulm supportive mgmt, unclear if true exacerbation, continue Solumedrol, O2 support (5) Lactic acidosis Code(s): E87.2 - ACIDOSIS Status: Acute Comment: Mild elevation now improving, continue current mgmt as outlined above (6) Bladder outlet obstruction Code(s): N32.0 - BLADDER-NECK OBSTRUCTION Status: Chronic Comment: Continue chronic suprapubic catheter, no current evidence of infectious process - Plan plan discussed w/ family, continue antibiotics, PT/OT, manager social work, speech therapy, respiratory therapy, out of bed/ambulate, DVT proph w/SCDs Stable overall -: Continue Clindamycin/Levaquin -: Duonebs q4h prn -: Modified texture diet with aspiration risks discussed with family -: Resume Diltiazem, Digoxin * Likely home in 24h
[2018-11-07] MEDS ORDERED: Benzonatate 100 MG CAP PO PRN (11:54)
--- NOTE | 2018-11-07 12:52 | CON ---
DATE OF CONSULTATION: 11/07/2018 SERVICE: Pulmonary Medicine. HISTORY OF PRESENT ILLNESS: The patient is an 83-year-old white male with past medical history significant for essential tremor. He has had increasing weakness that has been progressing over a period of several years. Essentially, 3 months ago, he has been confined to bed or wheelchair and he has not been walking. He works with physical therapy, but outside of their direct interaction with him, he does not do anything to increase his strength. He currently denies any fevers, chills, nausea, vomiting, abdominal pain, or cough. That being said, he is coughing almost continuously. He is bringing up white phlegm based on what the family is telling me. Either way, he presented. He was brought to the emergency department because of increasing shortness of breath. It occurred shortly after the setting of him taking some p.o. Overnight, he was placed on BiPAP, but this morning, we weaned him off the BiPAP on room air and he maintained good saturations. He cannot provide any additional elements of the historical presentation. PAST MEDICAL HISTORY: 1. Atrial fibrillation. 2. COPD. 3. Benign prostate hyperplasia. 4. Hypertension. 5. Essential tremor. PAST SURGICAL HISTORY: 1. Bilateral hip replacement. 2. Deep brain stimulator for essential tremor. 3. Suprapubic catheter placement. 4. Transurethral resection of the prostate. SOCIAL HISTORY: He has a remote history of smoking. Denies any alcohol or illicit drug use. FAMILY HISTORY: Noncontributory. ALLERGIES: NO KNOWN DRUG ALLERGIES. MEDICATIONS: List of his inpatient medications was reviewed. No specific updates were made at this time. REVIEW OF SYSTEMS: General, head, ears, eyes, nose, throat, cardiovascular, respiratory, GI, , musculoskeletal, neurologic, and skin are negative, except as mentioned in the HPI. PHYSICAL EXAMINATION: VITAL SIGNS: Afebrile, pulse 95, blood pressure 112/78, respirations 32, saturation 100% on 2 L nasal cannula. On room air, he is 94% currently. HEENT: Normocephalic, atraumatic. Sclerae white. Conjunctivae pink. Oral mucosa is moist without lesions. LUNGS: Excellent air entry. Rhonchi are present. They clear with cough. There is a little prolonged expiratory phase. No polyphonic wheezing or crackles are appreciated. HEART: Normal rate and regular. ABDOMEN: Soft, nontender, nondistended. Bowel sounds are positive. MUSCULOSKELETAL: No cyanosis or clubbing. No pitting in the bilateral lower extremities. He has minimal tenting. GENITOURINARY: Suprapubic catheter is in place. NEUROLOGIC: Grossly nonfocal. 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 His strength is 4+ throughout and symmetric. Otherwise, neurologic exam is nonfocal. LABORATORY DATA: WBC 5.4, hemoglobin 10.1, platelets 256,000, band count is 13% . D-dimer is 0.87. PH 7.47, pCO2 of 32, pO2 of 94 on BiPAP with 30% FiO2 at that moment. Basic metabolic profile and liver function studies are unremarkable. Lactate is clear at 2.0. Urinalysis includes significant pyuria, positive nitrites, and positive leukocyte esterase. Urine culture, blood culture x2 are currently unremarkable. IMAGING DATA: CTA of the chest demonstrates diffuse emphysematous changes throughout bilateral lung bond. There is a very small infiltrate in the posterior segment of the right lower lobe. Underlying neoplastic process cannot be excluded. That being said, I do favor an inflammatory/infectious issue. This would be in the correct location for aspiration related disease. The pulmonary artery is generous in size. The left atrium is massively dilated. He also has right atrial dilation. The septum is flattened that were so slightly consistent with possible elevated right ventricular pressures. There is fluid in the left fissure. ASSESSMENT: 1. Acute hypoxic respiratory failure, resolved. 2. Healthcare-associated pneumonia. 3. Chronic obstructive pulmonary disease with acute exacerbation. 4. Atrial fibrillation with good rate control. 5. Essential tremor. 6. 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 DISCUSSION AND PLAN: The patient is doing fine from respiratory standpoint. Agree with our current antibiotics. He has no need for BiPAP. We can transition him out to the medical unit. Dr. Lester will assume care in the morning given that he has a previous established relationship with Mr. Carrillo. I do think that workup for cognitive impairment and an additional rotating tremor/Parkinson disease is indicated in the outpatient setting. I discussed this finding with his . They are planning on following up with Dr. Chowdary in [place]. At that point, he will discuss these features with his neurologist. 70 minutes have been devoted to this patient in various activities. I personally reviewed all imaging studies and laboratory data noted within this document. For fifty percent of this time, I was interacting with the patient at the bedside or coordinating care with the care team. For the remainder of the time I was immediately available to the patient in the hospital unit. Job ID: [id number] MTDD
[2018-11-07] MEDS: ALPRAZolam 0.5 MG TAB PO PRN ×2 (14:59→21:50)
[2018-11-07] MEDS ORDERED: Digoxin 0.125 MG TAB PO SCH (21:00)
[2018-11-08] MEDS: Clindamycin/D5W 600 MG in Premix Bag 1 BAG IVPB SCH ×3 (01:15→12:37)
[2018-11-08] MEDS: Mometasone/Formoterol 120 PUFF INHALER INH SCH (07:25)
[2018-11-08] MEDS ORDERED: predniSONE 20 MG TAB PO SCH (08:00)
[2018-11-08] MEDS ORDERED: Ferrous Sulfate 325 MG TAB PO SCH (09:00)
[2018-11-08] MEDS ORDERED: Cyanocobalamin (Vitamin B-12) 1,000 MCG TAB PO SCH (09:00)
[2018-11-08] MEDS: Lactinex Tablet PO SCH ×2 (09:09→09:10)
[2018-11-08] MEDS: Ketotifen Fumarate 0.025% Ophth Soln 5 ml Bottle EA EYE SCH (09:12)
[2018-11-08] MEDS: Rivaroxaban 10 MG TAB PO SCH (09:13)
[2018-11-08 09:23] VITALS: BP 98/61
[2018-11-08 11:18] VITALS: TEMP 97.5
--- NOTE | 2018-11-08 12:03 | DIS ---
DATE OF ADMISSION: 11/06/2018 DATE OF DISCHARGE: 11/08/2018 DISCHARGE DIAGNOSES: 1. Acute hypoxic respiratory failure, multifactorial with questionable aspiration event, improved. 2. Aspiration into the airway, transient. 3. Dysphagia, mild. 4. Chronic atrial fibrillation with controlled ventricular response. 5. Chronic obstructive pulmonary disease. 6. Lactic acidosis, mild, resolving. 7. Bladder outlet obstruction with chronic indwelling suprapubic Parikh catheter. CONSULTATIONS: Dr. Guillen with Pulmonology Service. PERTINENT LABORATORY AND X-RAY FINDINGS: Lactic acid level ranged between 2.0 to 2.3. CBC showed a white blood cell count ranging between 4.5 to 12.5, hemoglobin ranged between 10.1 to 11.3. Blood cultures x2 dated 11/05/2018, showed no growth to date. Urine culture dated 11/05/2018, showed 50,000 to 75,000 colonies of Pseudomonas species likely colonization. Portable chest x-ray dated 11/05/2018, showed no acute cardiopulmonary process. CT angiogram of the chest dated 11/06/2018, showed no evidence for pulmonary embolus. Bilateral emphysematous changes. Right lower lobe infiltrate noted. HOSPITAL COURSE: The patient was admitted to the intermediate care unit after initially presenting with increased shortness of breath with associated hypoxia, who initially presented with hypoxemia with concern for possible aspiration event. The patient received liquid Tylenol and immediately had severe coughing and likely mild aspiration according to family members. The patient was given bronchodilator therapy in the emergency room and started on Levaquin and clindamycin. The patient was also initially managed with BiPAP noninvasive mechanical ventilation due to hypoxemia. The patient was treated with noninvasive mechanical ventilation for approximately 24 hours, weaning to oxygen via nasal cannula and eventual transition to room air. The patient was evaluated by the Pulmonology Service with recommendations for antibiotic coverage as well as general pulmonary supportive management. The patient was evaluated by the Speech Therapy Service with recommendations for dietary modification to include pureed texture and nectar thick liquids with aspiration risk. The patient clinically stabilized and was tolerating a modified diet. The patient was also evaluated by the Urology Service due to a chronic indwelling suprapubic catheter and history of recurrent urinary tract infections and colonization. The patient was also noted with hematuria after resumption of Xarelto, which the patient have been treated chronically with due to atrial fibrillation. Current recommendations due to recurrent hematuria and anemia and concern for severe bleed are to discontinue Xarelto at this time. Family and the patient are in agreement with discontinuation of anticoagulation. Overall, the patient remained clinically stable during the hospital course. I have examined the patient at the time of discharge and discussed followup instructions. The patient and verbalized understanding and in agreement and ready for discharge on 11/08/2018. DISCHARGE MEDICATIONS: 1. Levaquin 500 mg 1 tablet p.o. daily x7 days. 2. Prednisone 10 mg 4 tabs p.o. daily x3 days, followed by 3 tablets p.o. daily x3 days, followed by 2 tablets p.o. daily x3 days, followed by 1 tab p.o. daily x3 days. 3. ProAir HFA 2 puffs inhaled q.i.d. p.r.n. 4. Alprazolam 0.5 mg p.o. b.i.d. 5. Tessalon Perles 100 mg p.o. t.i.d. p.r.n. 6. Digoxin 0.125 mg p.o. on Wednesday, Wednesday, Wednesday, and Wednesday. 7. Cardizem CD 120 mg p.o. daily. 8. Ferrous sulfate 325 mg p.o. daily. 9. Lidex 0.05% one application topically b.i.d. p.r.n. 10. Ipratropium bromide 2 sprays in each naris daily. 11. Ketotifen fumarate 0.025% one drop to each eye b.i.d. 12. Dulera 200/5 mcg 2 puffs inhaled b.i.d. 13. Multivitamin 1 tablet p.o. daily. 14. Protonix 40 mg p.o. q.a.m. 15. Zoloft 100 mg p.o. at bedtime. 16. Spiriva HandiHaler 18 mcg inhaled at bedtime. 17. Vitamin B12 of 1000 mcg p.o. daily. 18. Folic acid 1 mg p.o. daily. FOLLOWUP: The patient may follow up with his primary care provider, Dr. Gulshan Fitzgerald, within 7 days of discharge. The patient may follow up with Dr. Lester and to call his office for appointment, time, and date. The patient will follow up with Dr. Baltazar Kapadia with Urology Service. CONDITION ON DISCHARGE: Fair. ACTIVITY: Ad-mere. Rolling walker with standby/contact guard assistance. SPECIAL INSTRUCTIONS: Recommend ongoing home health services with physical, occupational, and speech therapy. Rolling walker with standby/contact guard assistance with fall risk precautions. DIET: Regular with pureed texture, nectar thick liquids. CODE STATUS: Do not attempt resuscitation. DISPOSITION: Discharged home on 11/08/2018, with [facility]. TIME SPENT: Total time preparing and coordinating discharge is 37 minutes. Job ID: [id number]
== END 2018-11-08 13:43 | disposition home health service (06) | DRG 189 ==
LOC: ERS 22:33 → ERHOLD 11-06 00:38 → IMCU/EMU 11-06 01:02
PROVIDERS: ADMIT Family Medicine; ATTEND Family Medicine
PROC: 5A09357 Assistance with Respiratory Ventilation, Less than 24 Consecutive Hours, Continuous Positive Airway Pressure (ICD-10-PCS; principal; 2018-11-06)
DX: J96.01 Acute respiratory failure with hypoxia (principal); E87.2 Acidosis; I10 Essential (primary) hypertension; Z66 Do not resuscitate; N40.0 Benign prostatic hyperplasia without lower urinary tract symptoms; J44.9 Chronic obstructive pulmonary disease, unspecified; T17.908A Unspecified foreign body in respiratory tract, part unspecified causing other injury, initial encounter; N32.0 Bladder-neck obstruction; R13.10 Dysphagia, unspecified; R31.9 Hematuria, unspecified; D64.9 Anemia, unspecified; I48.2 Chronic atrial fibrillation; Z96.643 Presence of artificial hip joint, bilateral; Z87.440 Personal history of urinary (tract) infections; Z87.891 Personal history of nicotine dependence; Z90.79 Acquired absence of other genital organ(s); Z79.01 Long term (current) use of anticoagulants
CPT/HCPCS: 36415; 71045; 71275; 80048; 80053; 81003; 81015; 82805; 83605; 85007; 85025; 85027; 85379; 87040; 87077; 87086; 87186; 93005; 94640; 94660; 94760; 96365; 96366; 96367; J1956; J2543; J2920; J3370; J3490; J7620; Q9966

== ENCOUNTER 2019-02-07 10:03 | Inpatient (IN) | payer MEDICARE ==
[2019-02-07 10:31] LABS: #Basophils 0.1 thou/uL (0.0-0.2); #Lymphocytes 1.2 thou/uL (1.20-3.40); #Monocytes 1.3 thou/uL (0.11-0.59); #Neutrophils 14.2 thou/uL (1.40-6.50); %Basophils 0.4 % (0.0-1.0); %Eosinophils 0.2 % (0.0-10.0); %Lymphocytes 6.9 % (21.0-51.0); %Monocytes 7.6 % (0.0-10.0); Hemoglobin 13.8 g/dL (14.0-18.0); Mean Corpuscular HGB CONC 32.8 g/dL (32.0-36.0); Mean Corpuscular Hemoglobin 29.2 pg (27.0-31.0); Mean Platelet Volume 8.5 fL (7.4-10.4); Platelet Count 212 thou/uL (130-400); RBC Distribution Width 15.7 % (11.5-14.5); Red Blood Cell (RBC) Count 4.74 mill/uL (4.70-6.10); White Blood Cell (WBC) Count 16.8 thou/uL (4.8-10.8)
[2019-02-07] MEDS ORDERED: Acetaminophen 650 MG Suppository ONE (10:38)
--- NOTE | 2019-02-07 10:45 | RAD ---
XR Chest 1 View Portable HISTORY: Chest pain COMPARISON: 11/05/2018 FINDINGS: The heart size normal. The aorta is tortuous. Chronic changes in the lung bond are again seen. There is a new small right pleural effusion with adjacent opacity. No pneumothoraces are seen. Left-sided electronic device is again seen.
[2019-02-07] MEDS ORDERED: cefTRIAXone\\ROCEPHIN 2 GM VIAL ONE (10:51)
[2019-02-07] MEDS ORDERED: Sodium Chloride 0.9% 100 ML ONE (10:51)
[2019-02-07 10:55] LABS: ALT (SGPT) 11 U/L (8-55); AST (SGOT) 16 U/L (5-34); Albumin 4.1 g/dL (3.4-4.8); Alkaline Phosphatase 129 U/L (40-150); Anion Gap 15 mmol/L (10-20); BUN (Urea Nitrogen) 16 mg/dL (8.4-25.7); Bilirubin, Total 0.7 mg/dL (0.2-1.2); Calc. Creatinine Clearance 0 mL/min (70-130); Calcium 9.5 mg/dL (7.8-10.44); Carbon Dioxide 25 mmol/L (23-31); Chloride 100 mmol/L (98-107); Estimated GFR-MDRD 67; Globulin 3.5 g/dL (2.4-3.5); Glucose 106 mg/dL (83-110); Protein, Total 7.6 g/dL (5.8-8.1); Sodium 136 mmol/L (136-145)
[2019-02-07 10:55] LABS: Bilirubin Negative (Negative); Blood, Urine Large (Negative); Clarity CLOUDY (Clear); Glucose, Urine (Dipstick) Negative (Negative); Leukocyte Large (Negative); Nitrite Positive (Negative); Protein, Urine (Dipstick) 100 mg/dL (Neg-Trace); Specific Gravity, Urine 1.016 (1.002-1.036); Urobilinogen 0.2 mg/dL (0.2-1.0); pH, Urine 7.5 (5.0-9.0)
[2019-02-07 10:56] LABS: Digoxin 0.45 ng/mL (0.8-2.0)
[2019-02-07 10:57] LABS: Bacteria/HPF 1+ HPF (None Seen); Hyaline Casts/LPF 7-10 HYALINE CAST LPF (0-3 Hyaline); Pathc Cast-AUWi Flag 0.85 (0-2.49); RBC/HPF GREATER THAN 50-TNTC HPF (0-3); Squamous Epithelial 0-3 HPF (0-3)
[2019-02-07] MEDS ORDERED: Acetaminophen 325 MG TAB PO PRN (12:58)
[2019-02-07] MEDS ORDERED: Ondansetron ODT 4 MG TAB PO PRN (12:58)
--- NOTE | 2019-02-07 13:11 | HP ---
Referred from the [place] [facility] for UTI, sepsis. PRIMARY CARE PROVIDER: Dr. Gulshan Fitzgerald. HISTORY OF PRESENT ILLNESS: History obtained through [id number], Saji Carrillo. The patient was fine prior to this morning. This morning, his skin was hot. He had an elevated temperature, measured by the manager automotive at 100.3. He was poorly responsive. When I questioned him, he said he was fine, could not give any history. Per the [id number], he was just unable to stand up. Normally, he gets up, eats. He was unable to do the any of the activities of daily living. He would answer simple questions yes or no, but other than that, gave no history. He has a history of chronic atrial fibrillation, chronic obstructive pulmonary disease, benign prostatic hypertrophy with an indwelling suprapubic catheter, hypertension. Other surgeries include bilateral hip replacement, neurostimulator, suprapubic catheter, transurethral resection of the prostate. CURRENT MEDICATIONS: 1. Spiriva HandiHaler one inhalation daily. 2. Zoloft 100 mg at bedtime. 3. Protonix 40 mg a day. 4. Dulera 200/5 two puffs b.i.d. 5. He is on Levaquin. 6. He is on ketotifen fumarate ophthalmic drops. 7. Ipratropium nasal spray. 8. Folic acid. 9. Cardizem CD 120 a day. 10. Digoxin 0.125 mg as directed. 11. Albuterol, ProAir HFA two puffs q.i.d., rescue inhaler. 12. Xanax 0.5 mg p.o. b.i.d. ALLERGIES: NO KNOWN DRUG ALLERGIES. SOCIAL HISTORY: Former smoker. No alcohol or tobacco. DNR status confirmed with family. FAMILY HISTORY: Pertinent for no inheritable diseases, diabetes, hypertension, or heart disease, etc. REVIEW OF SYSTEMS: Unable to be obtained due to the patient's obtunded mental status. The [id number] said he had an no GI or cardiorespiratory complaints and was not aware of any other problems until this morning. PHYSICAL EXAMINATION: VITAL SIGNS: The patient's blood pressure is 137/90, pulse 102, respirations 28, temperature 102.7 in the ER, and O2 saturation 97 on room air. GENERAL: The patient is lethargic and responds yes and no slowly to some questions. HEAD, EYES, EARS, NOSE, AND THROAT: Revealed pupils are equal and round with implants. Extraocular movements are grossly intact. Sclerae are white. Tympanic membranes are clear. Nose is clear. Mouth is dry with multiple missing teeth. NECK: Reveals no jugular venous distention, adenopathy, or thyromegaly. CHEST: Hyper-resonant with some coarse breath sounds and some rhonchi, especially in the left chest. HEART: Has an irregular rate and rhythm, faint with variable second heart sounds. No murmur appreciated. ABDOMEN: Soft. Bowel sounds are normal. He has some mild tenderness over his bladder. He has a suprapubic catheter. No hepatosplenomegaly, masses, or bruits. EXTREMITIES: Reveal no cyanosis, clubbing, or edema. PULSES: Carotid, radial, femoral, and dorsalis pedis pulses present, grossly symmetric. SKIN: Warm and dry without rash. He does have some minor ecchymoses on his arms. HEME/LYMPH: No tender or swollen lymph nodes in axilla, inguinal, and cervical area. NEUROLOGIC: Cranial nerves 2 through 12 are grossly intact. Moves all extremities. DIAGNOSTIC STUDIES: Chest x-ray once again reveals COPD. Compared to his recent films, he has flattening of the right hemidiaphragm with an effusion obliterating the left costophrenic angle and there appears to be loculated effusion in the right chest. There are also multiple chronic changes. There is a pacemaker in the left upper chest. EKG has been done, atrial fib, rapid ventricular response, diffuse ST-T abnormality, reviewed by me. LABORATORY DATA: Elevated white count of 16.8 with an absolute neutrophilia, hemoglobin 13.8, platelet count 212,000. Urinalysis, too many to count white cells, red cells, positive nitrite, positive esterase. Chemistries, comprehensive metabolic profile normal. Troponin normal. BNP minimally elevated at 194. Toxicology, dig was low at 0.45. ADMITTING DIAGNOSES: 1. Sepsis syndrome. 2. Urinary tract infection. 3. Pleural effusion, suspicious for empyema. 4. Encephalopathy, acute. 5. Suprapubic catheter. 6. Chronic obstructive pulmonary disease. 7. Atrial fibrillation. 8. Hypertension. PLAN: Blood and urine cultures have been drawn. Broad-spectrum antibiotics have been started. Vancomycin, ceftriaxone, IV fluids have been started. His home medicines, specifically DuoNeb, etc will be started. Due to his age and infirmity of multiple medical problems, his prognosis is guarded. He is DNR. He will be admitted to the medical floor. Job ID: [id number]
[2019-02-07 13:36] VITALS: BMI 19.4
[2019-02-07] MEDS: Sodium Chloride 0.9% 1,000 ML IV SCH (14:51)
[2019-02-07] MEDS ORDERED: Ipratropium Bromide 2.5 ml Neb ONE (19:06)
[2019-02-07] MEDS: Ipratropium Bromide 2.5 ml Neb NEB SCH (19:12)
[2019-02-07] MEDS ORDERED: Acetaminophen 1,000 MG in Premix Bag 1 BAG IVPB SCH (19:30)
[2019-02-07 19:51] LABS: Actual Bicarbonate (HCO3a) 17.2 mEq/L (22-28); Base Excess (BEa) -6.3 mEq/L (-2.0 to +3.0); Calcium, Ionized 1.15 mmol/L (1.12-1.30); Hemoglobin (Hb) 13.4 g/dL (14.0-18.0); O2 Tension (PaO2) 70.8 mmHg (> 60.0); Potassium - ABG Lab 3.92 mmol/L (3.70-5.30); pH, Arterial 7.39 (7.35-7.45)
[2019-02-07 19:52] LABS: Puncture Site RRADIAL
[2019-02-07] MEDS ORDERED: Ondansetron PF 4 MG/2 ML Vial IVP PRN (20:32)
[2019-02-07] MEDS ORDERED: Ondansetron ODT 8 MG TAB SL PRN (20:33)
[2019-02-07] MEDS ORDERED: Morphine 4 MG/ML VIAL SLOW IVP PRN (20:34)
[2019-02-07] MEDS ORDERED: Clindamycin/D5W 900 MG in Premix Bag 1 BAG IVPB SCH (20:45)
--- NOTE | 2019-02-07 20:54 | RAD ---
PORTABLE CHEST: History: Difficulty breathing. Comparison: 02-07-19 at 10:23 a.m. FINDINGS: Bilateral effusions. Bibasilar atelectasis and/or infiltrates, more prominent on the right. Upper larry g bond remain well aerated and clear. There is a nodular opacity overlying the left midlung again n oted. IMPRESSION: No change from the film earlier today. POS: RUBY
[2019-02-07] MEDS: Ketotifen Fumarate 0.025% Ophth Soln 5 ml Bottle EA EYE SCH (21:38)
[2019-02-08] MEDS: Ipratropium Bromide 2.5 ml Neb NEB SCH ×5 (00:02→23:58)
[2019-02-08] MEDS: Sodium Chloride 0.9% 1,000 ML IV SCH ×3 (01:59→23:41)
[2019-02-08 05:32] LABS: Anion Gap 20 mmol/L (10-20); BUN (Urea Nitrogen) 16 mg/dL (8.4-25.7); Calc. Creatinine Clearance 55 mL/min (70-130); Calcium 9.4 mg/dL (7.8-10.44); Carbon Dioxide 15 mmol/L (23-31); Chloride 104 mmol/L (98-107); Estimated GFR-MDRD 79; Glucose 86 mg/dL (83-110); Sodium 135 mmol/L (136-145)
[2019-02-08 06:18] LABS: Anisocytosis SLIGHT = 6-15 cells (100X) (0-5/hpf); Band 13 % (5-11); Hemoglobin 13.1 g/dL (14.0-18.0); Lymphocytes 5 % (21-51); MDiff Complete? YES; Mean Corpuscular Hemoglobin 27.7 pg (27.0-31.0); Mean Corpuscular Volume 92.3 fL (78.0-98.0); Mean Platelet Volume 10.2 fL (7.4-10.4); Neutrophil 82 % (42-75); Platelet Count 121 thou/uL (130-400); RBC Distribution Width 15.8 % (11.5-14.5); Red Blood Cell (RBC) Count 4.74 mill/uL (4.70-6.10); White Blood Cell (WBC) Count 22.3 thou/uL (4.8-10.8)
[2019-02-08] MEDS: Acetaminophen 1,000 MG in Premix Bag 1 BAG IVPB PRN ×2 (07:23→15:59)
--- NOTE | 2019-02-08 07:52 | RAD ---
XR Chest 1 View Portable HISTORY: Pneumonia COMPARISON: Previous day FINDINGS: No significant interval change is seen since the previous day's exam. IMPRESSION: Stable exam.
[2019-02-08] MEDS: Folic Acid 1 MG TAB PO SCH (08:06)
[2019-02-08] MEDS: Ketotifen Fumarate 0.025% Ophth Soln 5 ml Bottle EA EYE SCH ×2 (09:55→23:42)
[2019-02-08] MEDS ORDERED: cefTRIAXone\\ROCEPHIN 2 GM in Sodium Chloride 0.9% 100 ML IVPB SCH (11:00)
[2019-02-08] MEDS: Vancomycin HCl 1 GM in Premix Bag 1 BAG IVPB SCH (11:28)
[2019-02-08] MEDS ORDERED: Sodium Chloride 0.9% 500 ML IV SCH (14:45)
[2019-02-08] MEDS ORDERED: Diltiazem 125 MG in Sodium Chloride 0.9% 100 ML IVPB SCH (15:00)
[2019-02-08] MEDS ORDERED: Digoxin 0.5 MG/2 ML AMP SLOW IVP SCH (15:00)
[2019-02-08] MEDS ORDERED: methylPREDNISolone Sod Succ 40 MG VIAL IVP SCH ×2 (15:30→18:00)
--- NOTE | 2019-02-08 16:07 | PDOC.PN ---
- Subjective Encounter Start Date: 02/08/19 Encounter Start Time: 13:00 Patient without complaint. Had Code [place] overnight with high fever and decreased SaO2. - Objective Resuscitation Status - Order Detail: 02/07/19 11:31 Resuscitation Status Routine Resuscitation Status: DNAR: NO Resuscitation Discussed with: , CYDNEY Vital Signs & Weight: Vital Signs (12 hours) Temp Pulse Resp Pulse Ox 02/08/19 14:59 110 H 02/08/19 13:31 142 H 34 H 02/08/19 13:12 99 02/08/19 13:11 89 29 H 99 02/08/19 12:00 96 02/08/19 11:00 98.0 F 02/08/19 08:06 96 02/08/19 08:00 99.5 F 02/08/19 07:32 100 02/08/19 07:00 102.6 F H 02/08/19 06:42 96 33 H 99 02/08/19 06:40 92 32 H 99 Weight Weight 143 lb 4.807 oz Most Recent Monitor Data Heart Rate from ECG 103 NIBP 89/55 NIBP BP-Mean 66 Respiration from ECG 27 SpO2 100 I&O: 02/07/19 02/08/19 02/09/19 06:59 06:59 06:59 Intake Total 789 700 Output Total 620 373 Balance 169 327 Result Diagrams: 02/08/19 04:12 02/08/19 04:12 Phys Exam - Physical Examination Constitutional: NAD Scattered, modest rales. Cardiovascular: RRR, no significant murmur, no rub Gastrointestinal: soft, non-tender, no distention, positive bowel sounds Musculoskeletal: no edema Skin: no rash, normal turgor, cap refill <2 seconds Dx/Plan (1) Aspiration pneumonia Code(s): J69.0 - PNEUMONITIS DUE TO INHALATION OF FOOD AND VOMIT Status: Acute (2) Acute respiratory failure with hypoxia Code(s): J96.01 - ACUTE RESPIRATORY FAILURE WITH HYPOXIA Status: Acute Comment: Likely due to aspiration event of small amount of food, weaned off O2 support currently (3) Complicated UTI (urinary tract infection) Code(s): N39.0 - URINARY TRACT INFECTION, SITE NOT SPECIFIED Status: Acute Comment: Suspected with current Proteus spp, Cefepime initiated but Proteus spp resistant, monitor clinically as organism could be colonizer, hold abx therapy and monitor clinically (4) Sepsis Code(s): A41.9 - SEPSIS, UNSPECIFIED ORGANISM Status: Acute Comment: Suspected due to #1, supportive mgmt (5) Afib Code(s): I48.91 - UNSPECIFIED ATRIAL FIBRILLATION Status: Chronic Qualifiers: Comment: Rate-controlled, continue Diltiazem, Digoxin, Xarelto (6) Bladder outlet obstruction Code(s): N32.0 - BLADDER-NECK OBSTRUCTION Status: Chronic Comment: Continue chronic suprapubic catheter, no current evidence of infectious process (7) COPD (chronic obstructive pulmonary disease) Status: Chronic Qualifiers: Comment: Continue pulm supportive mgmt, unclear if true exacerbation, continue Solumedrol, O2 support (8) Suprapubic catheter Code(s): Z93.59 - OTHER CYSTOSTOMY STATUS Status: Chronic - Plan * Followed by Pulm/CC. * Abx coverage for possible UTI, but more likely aspiration pneumonitis. * Urine growing Pseudomonas. Has grown a number of times in the past. * Change abx to Vanc/Zosyn for anti-pseudomonal coverage. * Dig, Cardizem for rate control, but not on anticoagulation at baseline. * Respiratory status has improved.
[2019-02-08] MEDS: Piperacillin/Tazobactam 4.5 GM in Sodium Chloride 0.9% 100 ML IVPB SCH ×2 (17:33→23:42)
--- NOTE | 2019-02-08 21:59 | CON ---
DATE OF CONSULTATION: 02/08/2019 HISTORY OF PRESENT ILLNESS: Kelvin Carrillo is an 83-year-old male, who is well known to me. He has a history of aspiration and movement disorder, it is not Parkinson's. He has a deep brain stimulator in place. Dr. Chowdary used to adjust his brain stimulator, when he was here in practice, but he has not had this addressed since Dr. Chowdary left. He presented with fever and tachycardia. He had no complaints on presentation. He has not smoked since August. He clearly has trouble swallowing clinically. PAST MEDICAL HISTORY: Remarkable for, 1. Chronic obstructive pulmonary disease. 2. History of swallowing dysfunction. 3. History of movement disorder. It is not Parkinson's leading to deep brain stimulator. 4. Suprapubic catheter placement in the past. 5. History of hypertension. 6. History of hip replacement. 7. History of multiple falls. 8. History of TURP in the past. 9. History of atrial fibrillation in the past. SOCIAL HISTORY: He quit smoking in August. He does not drink. ALLERGIES: HE HAS NO REPORTED DRUG ALLERGIES. MEDICATIONS: Have been reviewed. FAMILY HISTORY: Negative for lung disease in early age. REVIEW OF SYSTEMS: A 10-point review of systems is not accurately obtainable since he is minimally verbal. PHYSICAL EXAMINATION: GENERAL: Apparently, he had some vomiting last night and aspirated, but he is clinically much better. He is on BiPAP all night. VITAL SIGNS: Blood pressure 114/71, heart rate is in one teens. He is in atrial fibrillation. Respiratory rates in the low 30s, oximetry is 100%. EYES: Pupils are equal. Sclerae are anicteric. NECK: Supple. Answers questions with one or two words. LUNGS: Remarkable for mild rhonchi. HEART: Regular rhythm. S1 and S2 are normal. He is in atrial fibrillation by monitor. ABDOMEN: Soft and nontender. He is unable to swallow his pills currently. NEURO: Otherwise, nonfocal. DIAGNOSTIC DATA: Chest radiograph on admission shows faint infiltrate in his right lower lung field. Chest radiograph today is similar to yesterday's film. Microbiology shows Pseudomonas in his urine. It is not surprising given the suprapubic catheter. Blood cultures are negative so far. LABORATORY DATA: White count is 22.3, hemoglobin 13.1, and platelets 121. Sodium 135, chloride 104, bicarb 15, BUN 20, creatinine 0.6, and glucose 86. IMPRESSION: 1. Aspiration pneumonia. 2. Chronic indwelling suprapubic catheter, Pseudomonas isolated from his urine. 3. Extreme deconditioning and weakness secondary to his movement disorder. 4. Chronic obstructive pulmonary disease, not with exacerbation. 5. Chronic atrial fibrillation with mildly elevated rate. He will get more tachycardic when it becomes febrile. 6. We will continue broad antimicrobial therapy, might do well with short course of steroids. His vancomycin probably can be discontinued. I doubt he has Methicillin-resistant Staphylococcus Aureus pneumonia. Job ID: [id number] [facility]
[2019-02-08] MEDS: methylPREDNISolone Sod Succ 40 MG VIAL IVP SCH (23:42)
[2019-02-09] MEDS: methylPREDNISolone Sod Succ 40 MG VIAL IVP SCH ×2 (05:33→12:17)
[2019-02-09] MEDS: Piperacillin/Tazobactam 4.5 GM in Sodium Chloride 0.9% 100 ML IVPB SCH ×4 (05:33→23:23)
[2019-02-09] MEDS: Ipratropium Bromide 2.5 ml Neb NEB SCH ×4 (07:37→23:22)
[2019-02-09] MEDS: Ketotifen Fumarate 0.025% Ophth Soln 5 ml Bottle EA EYE SCH ×2 (08:30→23:25)
[2019-02-09] MEDS: Sodium Chloride 0.9% 1,000 ML IV SCH (08:41)
[2019-02-09] MEDS: Folic Acid 1 MG TAB PO SCH (08:42)
[2019-02-09] MEDS: Digoxin 0.5 MG/2 ML AMP SLOW IVP SCH (08:49)
[2019-02-09] MEDS: Vancomycin HCl 1 GM in Premix Bag 1 BAG IVPB SCH (12:15)
--- NOTE | 2019-02-09 14:10 | PDOC.PN ---
- Subjective Encounter Start Date: 02/09/19 Encounter Start Time: 13:40 Doing much better. Feels ok. No complaints. Denies SOB. - Objective Resuscitation Status - Order Detail: 02/07/19 11:31 Resuscitation Status Routine Resuscitation Status: DNAR: NO Resuscitation Discussed with: , CYDNEY Vital Signs & Weight: Vital Signs (12 hours) Temp Pulse Resp Pulse Ox 02/09/19 13:25 100 20 97 02/09/19 11:52 98.3 F 02/09/19 08:49 87 02/09/19 08:42 87 02/09/19 08:00 100 02/09/19 07:37 87 23 H 99 02/09/19 07:24 97.6 F 02/09/19 03:16 97.7 F 02/09/19 02:47 66 19 100 Weight Weight 143 lb 4.807 oz Most Recent Monitor Data Heart Rate from ECG 106 NIBP 115/65 NIBP BP-Mean 81 Respiration from ECG 32 SpO2 98 I&O: 02/08/19 02/09/19 02/10/19 06:59 06:59 06:59 Intake Total 789 3453 Output Total 620 883 Balance 169 2570 Result Diagrams: 02/08/19 04:12 02/08/19 04:12 Additional Labs: Accuchecks 02/08/19 15:14 POC Glucose 104 Phys Exam - Physical Examination Constitutional: NAD Respiratory: no rales, no rhonchi Very mild wheezing at times. Cardiovascular: no significant murmur, irregular Gastrointestinal: soft, non-tender, no distention, positive bowel sounds Musculoskeletal: no edema Neurological: non-focal, normal sensation, moves all 4 limbs Dx/Plan (1) Aspiration pneumonia Code(s): J69.0 - PNEUMONITIS DUE TO INHALATION OF FOOD AND VOMIT Status: Acute (2) Acute respiratory failure with hypoxia Code(s): J96.01 - ACUTE RESPIRATORY FAILURE WITH HYPOXIA Status: Acute Comment: Likely due to aspiration event of small amount of food, weaned off O2 support currently (3) Complicated UTI (urinary tract infection) Code(s): N39.0 - URINARY TRACT INFECTION, SITE NOT SPECIFIED Status: Acute Comment: Suspected with current Proteus spp, Cefepime initiated but Proteus spp resistant, monitor clinically as organism could be colonizer, hold abx therapy and monitor clinically (4) Sepsis Code(s): A41.9 - SEPSIS, UNSPECIFIED ORGANISM Status: Acute Comment: Suspected due to #1, supportive mgmt (5) Afib Code(s): I48.91 - UNSPECIFIED ATRIAL FIBRILLATION Status: Chronic Qualifiers: Comment: Rate-controlled, continue Diltiazem, Digoxin, Xarelto (6) Bladder outlet obstruction Code(s): N32.0 - BLADDER-NECK OBSTRUCTION Status: Chronic Comment: Continue chronic suprapubic catheter, no current evidence of infectious process (7) COPD (chronic obstructive pulmonary disease) Status: Chronic Qualifiers: Comment: Continue pulm supportive mgmt, unclear if true exacerbation, continue Solumedrol, O2 support (8) Suprapubic catheter Code(s): Z93.59 - OTHER CYSTOSTOMY STATUS Status: Chronic - Plan * Psuedomonas in urine may just be colonization. Continue Abx coverage. * Abx should cover asp pneumonia as well. * Oxygen levels normalized. Slightly tachypneic, but comfortable. * Taken off Xarelto in the past due to hematuria. Was to follow up with Dr. Mao soon to discuss. * Made Dr. Mao aware of patient's admission. * Can likely move to floor.
--- NOTE | 2019-02-09 18:34 | CON ---
DATE OF CONSULTATION: 02/08/2019 HISTORY OF PRESENT ILLNESS: This is a patient, I saw yesterday. He is an 83-year-old patient I am well familiar with. I started caring for him a few years ago when he had urinary retention. He underwent a TURP, but was unable to urinate after it and had a suprapubic tube placed, which he has had. He has had a fair amount of trouble with the suprapubic tube mainly because of his general state of dehydration. His has a great deal of difficulty getting him to stay hydrated. So, he has problems with suprapubic tube occluding because of concentrated urine. He does have occasional symptomatic infections. He always has colonized because of the suprapubic tube. He has been admitted now with change in mental status and fever. It was unclear as to whether he had a urinary tract source or some other sources. Chest x-ray shows what may be pneumonia. I did text Dr. Lester yesterday and felt he probably did have aspiration pneumonia. He is on Rocephin. He seems to be improving on talking with the nurses. He was asleep when I saw him, but he was fairly easily arousable. He acted like he did not recognize me, but certainly answer some questions, although he is not oriented. His urine is now clearing up. It was apparently quite concentrated. He is beginning some IV fluids. The suprapubic tube seems to be draining well. On his exam, he does not have anything to suggest epididymitis of the penis without lesion. There is nothing to suggest a perirectal or perineal process such as an abscess. He looks like he has a presumptive Pseudomonas in the urine and today, it came back as a pansensitive Pseudomonas. IMPRESSION: 1. Febrile illness, probably pneumonia. 2. Urinary retention management with suprapubic tube with urinary colonization currently with a Pseudomonas in the urine. PLAN: He was on Rocephin, which would cover this, but he has been switched to vancomycin and Zosyn. These should all cover any potential urinary tract source. If his blood cultures do not turn up positive for Pseudomonas, I do not think we need to do any imaging of the kidneys or urinary tract, particularly if he continues to improve. Job ID: [id number]
--- NOTE | 2019-02-09 19:03 | PRG ---
DATE OF SERVICE: 02/09/2019 SUBJECTIVE: Mr. Carrillo is doing well. He is awake. He is more quick to respond. He is in no distress. We talked to his about going home. I think we need to get physical therapy working with him, and if we can get him ambulating short distances and transferring, then going home on Wednesday might be a reasonable possibility. She does excellent job of taking care of him at home. I have asked the nurses to switch him to a pureed diet. His suggested this. I would also discontinue his IV steroids. In my opinion, he is a candidate to be switched to enteric medications if he continues to swallow reasonably well. His vancomycin can be discontinued. I still believe that Mr. Carrillo had more of a pneumonia than a urinary tract infection leading to his admission. Fortunately , the Pseudomonas is pansensitive organism. He could probably transfer out of [facility] up to the 4th floor in the morning. Job ID: [id number] MTDD
[2019-02-10] MEDS: Sodium Chloride 0.9% 1,000 ML IV SCH ×4 (00:10→22:44)
[2019-02-10] MEDS: Piperacillin/Tazobactam 4.5 GM in Sodium Chloride 0.9% 100 ML IVPB SCH ×3 (06:47→18:31)
[2019-02-10] MEDS: Ipratropium Bromide 2.5 ml Neb NEB SCH ×3 (07:51→19:27)
[2019-02-10] MEDS: Folic Acid 1 MG TAB PO SCH (09:18)
[2019-02-10] MEDS: Digoxin 0.5 MG/2 ML AMP SLOW IVP SCH (09:18)
[2019-02-10] MEDS: Ketotifen Fumarate 0.025% Ophth Soln 5 ml Bottle EA EYE SCH ×2 (09:20→20:19)
[2019-02-10] MEDS ORDERED: Furosemide 20 MG/2 ML VIAL SLOW IVP SCH (10:30)
--- NOTE | 2019-02-10 10:51 | PRG ---
DATE OF SERVICE: 02/10/2019 SUBJECTIVE: Kelvin Carrillo is quick to verbalize and answer questions. He is smiling today. He is in no distress. I met with his and answered the questions. OBJECTIVE: VITAL SIGNS: He is afebrile, heart rate is in the 90s, respiratory rates in the high 20s. LUNGS: Clear. HEART: Regular rhythm. ABDOMEN: Soft. EXTREMITIES: Without clubbing, cyanosis, or edema. LABORATORY DATA: No new lab on him. IMPRESSION: 1. Acute on chronic respiratory failure. 2. Aspiration pneumonia. 3. Chronic obstructive pulmonary disease is clinically stable. 4. Extreme deconditioning. 5. Movement disorder. 6. Smoking until August. 7. Status post implantation of deep brain stimulator that has been adjusted since Dr. Chowdary left [facility]. 8. Suprapubic catheter with Pseudomonas in his urine. I suspect this is a bladder colonizer. Could be switched to enteral antimicrobial therapy if he is tolerating his pureed diet today. 9. History of multiple falls. 10. History of hip replacement. 11. History of atrial fibrillation. We will continue supportive care. We will get physical therapy involved. Once we were sure that we can successfully transfer him, we will send him home. His does not want him going to a full-time care environment. Job ID: [id number]
--- NOTE | 2019-02-10 11:05 | PRG ---
DATE OF SERVICE: 02/10/2019 SUBJECTIVE: Mr. Carrillo is in the hospital with pneumonia. He had high fevers, on antibiotics. OBJECTIVE: VITAL SIGNS: Blood pressure is 148/99 and pulse is in the 80s. LUNGS: Clear anteriorly and laterally. CARDIAC: Irregular. ABDOMEN: Soft and nontender. LABORATORY DATA: White count is 22,000. The BNP is somewhat elevated at 193. ASSESSMENT: 1. History of diastolic heart failure. 2. Pneumonia. 3. Chronic atrial fibrillation, cannot be anticoagulated due to repetitive bleeding. PLAN: Give him a single dose of furosemide. Please let us know if we are needed, otherwise we will not be following along unless further problems. Job ID: [id number]
[2019-02-10] MEDS ORDERED: Potassium Chloride 20 MEQ TAB PO SCH (12:00)
[2019-02-10] MEDS ORDERED: Furosemide 40 MG/4 ML VIAL ONE (14:07)
--- NOTE | 2019-02-10 14:12 | PDOC.PN ---
- Subjective Encounter Start Date: 02/10/19 Encounter Start Time: 12:15 Doing better today. feels he is much improved. No complaint. - Objective Resuscitation Status - Order Detail: 02/07/19 11:31 Resuscitation Status Routine Resuscitation Status: DNAR: NO Resuscitation Discussed with: CYDNEY Vital Signs & Weight: Vital Signs (12 hours) Temp Pulse Pulse Pulse Resp BP BP 02/10/19 13:29 101 H 35 H 02/10/19 11:32 97.8 F 02/10/19 09:40 89 95 149/82 H 149/93 H 02/10/19 09:18 97 02/10/19 08:28 98.3 F 02/10/19 08:00 02/10/19 07:51 97 31 H 02/10/19 04:07 98.3 F Pulse Ox Pulse Ox Pulse Ox 02/10/19 13:29 97 02/10/19 11:32 02/10/19 09:40 99 99 02/10/19 09:18 02/10/19 08:28 02/10/19 08:00 98 02/10/19 07:51 02/10/19 04:07 Weight Weight 143 lb 4.807 oz Most Recent Monitor Data Heart Rate from ECG 87 NIBP 147/94 NIBP BP-Mean 111 Respiration from ECG 30 SpO2 99 I&O: 02/09/19 02/10/19 02/11/19 06:59 06:59 06:59 Intake Total 3453 1940 Output Total 883 1100 Balance 2570 840 Result Diagrams: 02/08/19 04:12 02/08/19 04:12 Phys Exam - Physical Examination Constitutional: NAD Respiratory: no wheezing, no rhonchi Scattered rales. Mild. Cardiovascular: RRR, no significant murmur, no rub Gastrointestinal: soft, non-tender, no distention, positive bowel sounds Musculoskeletal: no edema Neurological: non-focal Tremor Dx/Plan (1) Aspiration pneumonia Code(s): J69.0 - PNEUMONITIS DUE TO INHALATION OF FOOD AND VOMIT Status: Acute (2) Acute respiratory failure with hypoxia Code(s): J96.01 - ACUTE RESPIRATORY FAILURE WITH HYPOXIA Status: Acute Comment: Likely due to aspiration event of small amount of food, weaned off O2 support currently (3) Complicated UTI (urinary tract infection) Code(s): N39.0 - URINARY TRACT INFECTION, SITE NOT SPECIFIED Status: Acute Comment: Suspected with current Proteus spp, Cefepime initiated but Proteus spp resistant, monitor clinically as organism could be colonizer, hold abx therapy and monitor clinically (4) Sepsis Code(s): A41.9 - SEPSIS, UNSPECIFIED ORGANISM Status: Acute Comment: Suspected due to #1, supportive mgmt (5) Afib Code(s): I48.91 - UNSPECIFIED ATRIAL FIBRILLATION Status: Chronic Qualifiers: Comment: Rate-controlled, continue Diltiazem, Digoxin, Xarelto (6) Bladder outlet obstruction Code(s): N32.0 - BLADDER-NECK OBSTRUCTION Status: Chronic Comment: Continue chronic suprapubic catheter, no current evidence of infectious process (7) COPD (chronic obstructive pulmonary disease) Status: Chronic Qualifiers: Comment: Continue pulm supportive mgmt, unclear if true exacerbation, continue Solumedrol, O2 support (8) Suprapubic catheter Code(s): Z93.59 - OTHER CYSTOSTOMY STATUS Status: Chronic - Plan * Continuing abx to cover aspiration. * Covering the UTI with Pseudomonas as well. * Change to po Levaquin. * Doing better with pureed foods. * May need to crush pills. * PT had him up today. If continues to do well with that, may be able to DC home tomorrow.
[2019-02-10] MEDS: methylPREDNISolone Sod Succ 40 MG VIAL IVP SCH (14:25)
[2019-02-11] MEDS: Ipratropium Bromide 2.5 ml Neb NEB SCH ×5 (00:02→23:25)
[2019-02-11] MEDS: Piperacillin/Tazobactam 4.5 GM in Sodium Chloride 0.9% 100 ML IVPB SCH ×4 (00:20→17:51)
[2019-02-11] MEDS: Ketotifen Fumarate 0.025% Ophth Soln 5 ml Bottle EA EYE SCH ×2 (09:07→20:02)
[2019-02-11] MEDS: Digoxin 0.5 MG/2 ML AMP SLOW IVP SCH (09:07)
[2019-02-11] MEDS: Sodium Chloride 0.9% 1,000 ML IV SCH ×2 (09:08→17:51)
[2019-02-11] MEDS: Folic Acid 1 MG TAB PO SCH (09:08)
--- NOTE | 2019-02-11 11:02 | PRG ---
DATE OF SERVICE: 02/11/2019 SUBJECTIVE: Remains in the MICU, in no distress. OBJECTIVE: VITAL SIGNS: His sats are 99% on 2 L blood pressure 130/90, pulse 80 . CHEST: Decreased breath sounds. No wheezing. CARDIAC: Normal S1, S2. No gallops. ABDOMEN: No masses. IMPRESSION: Chronic obstructive pulmonary disease, respiratory failure, end-stage chronic obstructive pulmonary disease, urinary tract infection, deconditioning, supraventricular tachycardia. He is still on antibiotics for Pseudomonas infection, which is sensitive to the Zosyn. Continue supportive care. Disposition as per primary care physician. Job ID: [id number]
--- NOTE | 2019-02-11 14:45 | PDOC.PN ---
- Subjective Encounter Start Date: 02/11/19 Encounter Start Time: 11:10 Doing well. Eating well. Still very weak. - Objective Resuscitation Status - Order Detail: 02/07/19 11:31 Resuscitation Status Routine Resuscitation Status: DNAR: NO Resuscitation Discussed with: CYDNEY Vital Signs & Weight: Vital Signs (12 hours) Temp Pulse Resp Pulse Ox 02/11/19 12:33 76 28 H 100 02/11/19 10:32 97.8 F 02/11/19 09:08 77 02/11/19 09:07 66 02/11/19 08:07 66 18 100 02/11/19 08:00 99 02/11/19 07:17 97.6 F 02/11/19 03:46 98.0 F Weight Weight 172 lb 3.2 oz Most Recent Monitor Data Heart Rate from ECG 100 NIBP 135/91 NIBP BP-Mean 105 Respiration from ECG 36 SpO2 99 I&O: 02/10/19 02/11/19 02/12/19 06:59 06:59 06:59 Intake Total 1940 0 Output Total 1100 6225 Balance 840 -4131 Result Diagrams: 02/08/19 04:12 02/08/19 04:12 Phys Exam - Physical Examination Constitutional: NAD Respiratory: no wheezing, no rales, no rhonchi, clear to auscultation bilateral Cardiovascular: RRR, no significant murmur, no rub Gastrointestinal: soft, non-tender, no distention, positive bowel sounds Musculoskeletal: no edema Neurological: non-focal, normal sensation Deviation from normal: Alert, interactive, but not very verbal. Skin: no rash, normal turgor, cap refill <2 seconds Dx/Plan (1) Aspiration pneumonia Code(s): J69.0 - PNEUMONITIS DUE TO INHALATION OF FOOD AND VOMIT Status: Acute (2) Acute respiratory failure with hypoxia Code(s): J96.01 - ACUTE RESPIRATORY FAILURE WITH HYPOXIA Status: Acute Comment: Likely due to aspiration event of small amount of food, weaned off O2 support currently (3) Complicated UTI (urinary tract infection) Code(s): N39.0 - URINARY TRACT INFECTION, SITE NOT SPECIFIED Status: Acute (4) Sepsis Code(s): A41.9 - SEPSIS, UNSPECIFIED ORGANISM Status: Acute Comment: Suspected due to #1, supportive mgmt (5) Afib Code(s): I48.91 - UNSPECIFIED ATRIAL FIBRILLATION Status: Chronic Qualifiers: Comment: Rate-controlled, continue Diltiazem, Digoxin, Xarelto (6) Bladder outlet obstruction Code(s): N32.0 - BLADDER-NECK OBSTRUCTION Status: Chronic Comment: Continue chronic suprapubic catheter (7) COPD (chronic obstructive pulmonary disease) Status: Chronic Qualifiers: Comment: Continue pulm supportive mgmt, unclear if true exacerbation, continue Solumedrol, O2 support (8) Suprapubic catheter Code(s): Z93.59 - OTHER CYSTOSTOMY STATUS Status: Chronic - Plan * Likely more aspiration pneumonia than UTI. * Still very weak. * PT worked with him this afternoon and think he would benefit from additional therapy. * Patient's does not want him to go to an inpatient setting. * Will consult Case Management for possible placement. Possibly Swing Bed. * Medical stable for discharge otherwise.
[2019-02-12] MEDS: Piperacillin/Tazobactam 4.5 GM in Sodium Chloride 0.9% 100 ML IVPB SCH ×2 (00:33→05:27)
[2019-02-12] MEDS: Sodium Chloride 0.9% 1,000 ML IV SCH (03:25)
[2019-02-12] MEDS: Ipratropium Bromide 2.5 ml Neb NEB SCH ×3 (06:45→19:03)
[2019-02-12 07:33] LABS: #Eosinphils 0.6 thou/uL (0.0-0.7); #Lymphocytes 1.8 thou/uL (1.20-3.40); #Monocytes 0.9 thou/uL (0.11-0.59); %Basophils 0.3 % (0.0-1.0); %Eosinophils 5.4 % (0.0-10.0); %Lymphocytes 17.9 % (21.0-51.0); %Monocytes 8.7 % (0.0-10.0); %Neutrophils 67.7 % (42.0-75.0); Hemoglobin 11.9 g/dL (14.0-18.0); Mean Corpuscular HGB CONC 32.5 g/dL (32.0-36.0); Mean Corpuscular Hemoglobin 28.9 pg (27.0-31.0); Mean Corpuscular Volume 88.8 fL (78.0-98.0); Mean Platelet Volume 8.5 fL (7.4-10.4); Platelet Count 217 thou/uL (130-400); RBC Distribution Width 15.3 % (11.5-14.5); Red Blood Cell (RBC) Count 4.12 mill/uL (4.70-6.10); White Blood Cell (WBC) Count 10.3 thou/uL (4.8-10.8)
[2019-02-12 07:51] LABS: Anion Gap 10 mmol/L (10-20); BUN (Urea Nitrogen) 13 mg/dL (8.4-25.7); Calc. Creatinine Clearance 81 mL/min (70-130); Calcium 8.7 mg/dL (7.8-10.44); Carbon Dioxide 27 mmol/L (23-31); Chloride 105 mmol/L (98-107); Estimated GFR-MDRD Greater than 90; Glucose 88 mg/dL (83-110); Potassium 3.3 mmol/L (3.5-5.1); Sodium 139 mmol/L (136-145)
[2019-02-12] MEDS: Folic Acid 1 MG TAB PO SCH (08:05)
[2019-02-12] MEDS: Digoxin 0.25 MG TAB PO SCH (08:05)
[2019-02-12] MEDS: Ketotifen Fumarate 0.025% Ophth Soln 5 ml Bottle EA EYE SCH ×2 (08:06→20:47)
--- NOTE | 2019-02-12 11:18 | PDOC.PN ---
- Subjective Encounter Start Date: 02/12/19 Encounter Start Time: 10:00 Doing well. Denies complaints. Says he is breathing fine. - Objective Resuscitation Status - Order Detail: 02/07/19 11:31 Resuscitation Status Routine Resuscitation Status: DNAR: NO Resuscitation Discussed with: CYDNEY Vital Signs & Weight: Vital Signs (12 hours) Temp Pulse Resp BP Pulse Ox 02/12/19 08:07 76 02/12/19 08:05 76 02/12/19 08:00 97 02/12/19 07:06 98 F 76 18 149/91 H 97 02/12/19 06:45 78 16 99 02/11/19 23:25 76 16 97 Weight Weight 172 lb 3.2 oz Most Recent Monitor Data Heart Rate from ECG 74 NIBP 138/82 NIBP BP-Mean 100 Respiration from ECG 27 SpO2 100 I&O: 02/11/19 02/12/19 02/13/19 06:59 06:59 06:59 Intake Total 2090 1100 360 Output Total 6225 2200 Balance -4135 -1100 360 Result Diagrams: 02/12/19 07:16 02/12/19 07:16 Phys Exam - Physical Examination Constitutional: NAD More talkative today than prior. Respiratory: no rales, no rhonchi Very subtle wheeze RUL Cardiovascular: RRR, no significant murmur, no rub Gastrointestinal: soft, non-tender, no distention, positive bowel sounds Musculoskeletal: no edema Psychiatric: normal affect Dx/Plan (1) Aspiration pneumonia Code(s): J69.0 - PNEUMONITIS DUE TO INHALATION OF FOOD AND VOMIT Status: Acute (2) Acute respiratory failure with hypoxia Code(s): J96.01 - ACUTE RESPIRATORY FAILURE WITH HYPOXIA Status: Resolved Comment: Likely due to aspiration event of small amount of food, weaned off O2 support currently (3) Complicated UTI (urinary tract infection) Code(s): N39.0 - URINARY TRACT INFECTION, SITE NOT SPECIFIED Status: Acute Comment: Pseudomonas. Likely colonizer. (4) Sepsis Code(s): A41.9 - SEPSIS, UNSPECIFIED ORGANISM Status: Resolved Comment: Suspected due to #1, supportive mgmt (5) Afib Code(s): I48.91 - UNSPECIFIED ATRIAL FIBRILLATION Status: Chronic Qualifiers: Comment: Rate-controlled, continue Diltiazem, Digoxin. Off anticoagulation secondary to bleeding concerns. Dr. Mao's recommendation. (6) Bladder outlet obstruction Code(s): N32.0 - BLADDER-NECK OBSTRUCTION Status: Chronic Comment: Continue chronic suprapubic catheter (7) COPD (chronic obstructive pulmonary disease) Status: Chronic Qualifiers: Comment: Continue pulm supportive mgmt, unclear if true exacerbation, continue Solumedrol, O2 support (8) Suprapubic catheter Code(s): Z93.59 - OTHER CYSTOSTOMY STATUS Status: Chronic - Plan * Doing well overall. * HR well controlled. Will DC the IV Diltiazem. Continue PO Diltiazem and Digoxin. * Off anticoagulation due to bleeding risks. * Will change to po abx for aspiration. * Pseudomonas in the urine is mostly likely a colonizer and will not specifically need additional treatment. * Deconditioned and is not able to adequately care for him at home. * Case Management consult. Probably going to swing bed in [place].
--- NOTE | 2019-02-12 11:20 | PRG ---
DATE OF SERVICE: 02/12/2019 SUBJECTIVE: Oliver Carrillo is an 83-year-old gentleman who this morning is weak, but denies any shortness of breath. OBJECTIVE: VITAL SIGNS: Saturation is 96% on room air, respiratory rate 18, pulse 76, temperature 98, and blood pressure 149/91. CHEST: Decreased breath sounds. No wheezing. CARDIAC: Normal S1, S2. No gallops. ABDOMEN: No masses. IMPRESSION: 1. Chronic obstructive pulmonary disease. 2. Supraventricular tachycardia. 3. Severe deconditioning. 4. Baseline suprapubic catheter with colonization there. PLAN: Continue present PT. Supportive care. Eventually placement. Job ID: [id number]
[2019-02-12] MEDS: Amoxicillin/Potassium Clav 875 MG TAB PO SCH (20:23)
[2019-02-13] MEDS: Ipratropium Bromide 2.5 ml Neb NEB SCH ×4 (00:13→19:35)
[2019-02-13] MEDS: Digoxin 0.25 MG TAB PO SCH (07:53)
[2019-02-13] MEDS: Folic Acid 1 MG TAB PO SCH (07:54)
[2019-02-13] MEDS: Amoxicillin/Potassium Clav 875 MG TAB PO SCH ×2 (07:54→21:07)
[2019-02-13] MEDS: Ketotifen Fumarate 0.025% Ophth Soln 5 ml Bottle EA EYE SCH ×2 (09:20→20:12)
--- NOTE | 2019-02-13 09:42 | PDOC.PN ---
- Subjective Encounter Start Date: 02/13/19 Encounter Start Time: 12:00 Subjective: Patient without complaints today. No cough/SOB/Chest pain/N/V. Getting up a -: bit with PT but still quite weak. - Objective Resuscitation Status - Order Detail: 02/07/19 11:31 Resuscitation Status Routine Resuscitation Status: DNAR: NO Resuscitation Discussed with: , CYDNEY RAMIREZ Reviewed: Yes Vital Signs & Weight: Vital Signs (12 hours) Temp Pulse Resp BP Pulse Ox 02/13/19 08:00 96 02/13/19 07:54 81 02/13/19 07:53 81 02/13/19 07:36 97.7 F 81 18 138/87 96 02/13/19 06:15 88 18 98 02/13/19 00:13 96 12 98 Weight Weight 172 lb 3.2 oz Most Recent Monitor Data Heart Rate from ECG 74 NIBP 138/82 NIBP BP-Mean 100 Respiration from ECG 27 SpO2 100 I&O: 02/12/19 02/13/19 02/14/19 06:59 06:59 06:59 Intake Total 1100 1210 240 Output Total 2200 2350 Balance -1100 -1140 240 Result Diagrams: 02/12/19 07:16 02/12/19 07:16 Phys Exam - Physical Examination Constitutional: NAD HEENT: moist MMs Respiratory: no wheezing, no rales, no rhonchi Cardiovascular: RRR Gastrointestinal: soft, positive bowel sounds suprapubic cath in place Neurological: non-focal Psychiatric: normal affect Dx/Plan (1) Aspiration pneumonia Code(s): J69.0 - PNEUMONITIS DUE TO INHALATION OF FOOD AND VOMIT Status: Acute (2) Acute respiratory failure with hypoxia Code(s): J96.01 - ACUTE RESPIRATORY FAILURE WITH HYPOXIA Status: Resolved Comment: Likely due to aspiration event of small amount of food, weaned off O2 support currently (3) Bacteriuria Code(s): R82.71 - BACTERIURIA Status: Acute Comment: pseudomonas, likely colonizer (4) Suprapubic catheter Code(s): Z93.59 - OTHER CYSTOSTOMY STATUS Status: Chronic (5) Afib Code(s): I48.91 - UNSPECIFIED ATRIAL FIBRILLATION Status: Chronic Qualifiers: Comment: Rate-controlled, continue Diltiazem, Digoxin. Off anticoagulation secondary to bleeding concerns. Dr. Mao's recommendation. (6) COPD (chronic obstructive pulmonary disease) Status: Chronic Qualifiers: Comment: Continue pulm supportive mgmt, unclear if true exacerbation, continue Solumedrol, O2 support (7) Sepsis Code(s): A41.9 - SEPSIS, UNSPECIFIED ORGANISM Status: Resolved Comment: Suspected due to #1, supportive mgmt - Plan cont current plan of care, continue antibiotics, PT/OT Spoke with Dr. Esteves and he accepted to Swing bed at [place], will arrange -: transportation. Likely d/c today or tomorrow. * . - Discharge Day Encounter end time: 12:30
--- NOTE | 2019-02-13 15:35 | PRG ---
DATE OF SERVICE: 02/13/2019 SUBJECTIVE: Mr. Carrillo was awaken from sleep this afternoon. OBJECTIVE: VITAL SIGNS: He is afebrile, heart rate is 81, respiratory rate is 18, oximetry is 96% to 98% on room air. LUNGS: Clear. HEART: Regular rate and rhythm. S1, S2 normal. ABDOMEN: Soft. : His urine is clear yellow. LABORATORY DATA: White count 10.3, hemoglobin 11.9, platelets 217 yesterday. Electrolytes yesterday were unimpressive exception of potassium of 3.3. IMPRESSION: 1. Aspiration pneumonia. 2. Movement disorder, status post deep brain stimulator. 3. Extreme weakness and deconditioning. 4. Status post placement of a suprapubic catheter. PLAN: I discussed options with him. I do believe hospice might be a viable option. Since I woke him up from sleep, I do not think he remembered seeing his daughter in-law this morning. I plan to meet with his and discussed end of life issues here within the next day or two. Apparently, he is being evaluated for a swing bed. Job ID: [id number]
[2019-02-14] MEDS: Ipratropium Bromide 2.5 ml Neb NEB SCH ×3 (00:10→13:43)
[2019-02-14 07:55] LABS: %Neutrophils 66.8 % (42.0-75.0); Hemoglobin 8.8 g/dL (14.0-18.0); Mean Corpuscular HGB CONC 32.9 g/dL (32.0-36.0); Mean Corpuscular Hemoglobin 29.2 pg (27.0-31.0); Mean Corpuscular Volume 88.8 fL (78.0-98.0); Mean Platelet Volume 8.2 fL (7.4-10.4); Platelet Count 245 thou/uL (130-400); RBC Distribution Width 15.5 % (11.5-14.5); Red Blood Cell (RBC) Count 2.99 mill/uL (4.70-6.10); White Blood Cell (WBC) Count 10.1 thou/uL (4.8-10.8)
[2019-02-14 07:56] LABS: #Basophils 0.1 thou/uL (0.0-0.2); #Eosinphils 0.5 thou/uL (0.0-0.7); #Lymphocytes 1.8 thou/uL (1.20-3.40); #Neutrophils 6.8 thou/uL (1.40-6.50); %Basophils 0.7 % (0.0-1.0); %Eosinophils 5.2 % (0.0-10.0); %Lymphocytes 17.8 % (21.0-51.0); %Monocytes 9.5 % (0.0-10.0)
[2019-02-14 08:18] LABS: Anion Gap 9 mmol/L (10-20); BUN (Urea Nitrogen) 9 mg/dL (8.4-25.7); Calc. Creatinine Clearance 90 mL/min (70-130); Calcium 8.4 mg/dL (7.8-10.44); Carbon Dioxide 28 mmol/L (23-31); Chloride 105 mmol/L (98-107); Estimated GFR-MDRD Greater than 90; Glucose 97 mg/dL (83-110); Sodium 139 mmol/L (136-145)
[2019-02-14 08:22] VITALS: BP 136/82; TEMP 98
[2019-02-14 08:25] LABS: Potassium 2.9 mmol/L (3.5-5.1)
[2019-02-14] MEDS ORDERED: Potassium Chloride 20 MEQ TAB PO SCH (08:45)
--- NOTE | 2019-02-14 08:45 | PDOC.PN ---
- Subjective Encounter Start Date: 02/14/19 Encounter Start Time: 10:30 Subjective: Patient without complaints this morning. No pain. No SOB. No cough. No -: fever. - Objective Resuscitation Status - Order Detail: 02/07/19 11:31 Resuscitation Status Routine Resuscitation Status: DNAR: NO Resuscitation Discussed with: , CYDNEY RAMIREZ Reviewed: Yes Vital Signs & Weight: Vital Signs (12 hours) Temp Pulse Resp BP Pulse Ox 02/14/19 08:00 98.0 F 77 20 136/82 96 02/14/19 06:41 96 02/14/19 06:40 65 16 96 02/14/19 00:10 97 02/13/19 21:13 98.1 F 86 20 129/83 96 Weight Weight 172 lb 3.2 oz Most Recent Monitor Data Heart Rate from ECG 74 NIBP 138/82 NIBP BP-Mean 100 Respiration from ECG 27 SpO2 100 I&O: 02/13/19 02/14/19 02/15/19 06:59 06:59 06:59 Intake Total 1210 750 Output Total 2350 1500 Balance -1140 -750 Result Diagrams: 02/14/19 07:34 02/14/19 07:33 Phys Exam - Physical Examination Constitutional: NAD HEENT: moist MMs Respiratory: no wheezing, no rales, no rhonchi Cardiovascular: RRR Gastrointestinal: soft, positive bowel sounds Neurological: non-focal Deviation from normal: alert Dx/Plan (1) Aspiration pneumonia Code(s): J69.0 - PNEUMONITIS DUE TO INHALATION OF FOOD AND VOMIT Status: Acute Comment: continue oral abx through 02/17/2019 (2) Acute respiratory failure with hypoxia Code(s): J96.01 - ACUTE RESPIRATORY FAILURE WITH HYPOXIA Status: Resolved Comment: Likely due to aspiration event of small amount of food, weaned off O2 support currently (3) Bacteriuria Code(s): R82.71 - BACTERIURIA Status: Acute Comment: pseudomonas, likely colonizer (4) Suprapubic catheter Code(s): Z93.59 - OTHER CYSTOSTOMY STATUS Status: Chronic (5) Afib Code(s): I48.91 - UNSPECIFIED ATRIAL FIBRILLATION Status: Chronic Qualifiers: Comment: Rate-controlled, continue Diltiazem, Digoxin. Off anticoagulation secondary to bleeding concerns. Dr. Mao's recommendation. (6) COPD (chronic obstructive pulmonary disease) Status: Chronic Qualifiers: Comment: Continue pulm supportive mgmt, unclear if true exacerbation, continue Solumedrol, O2 support (7) Sepsis Code(s): A41.9 - SEPSIS, UNSPECIFIED ORGANISM Status: Resolved Comment: Suspected due to #1, supportive mgmt (8) Hypokalemia Code(s): E87.6 - HYPOKALEMIA Status: Acute Comment: replacing - Plan cont current plan of care, continue antibiotics, PT/OT transfering to swing bed today * . - Discharge Day Encounter end time: 10:45
[2019-02-14] MEDS: Folic Acid 1 MG TAB PO SCH (09:15)
[2019-02-14] MEDS: Digoxin 0.25 MG TAB PO SCH (09:15)
[2019-02-14] MEDS: Amoxicillin/Potassium Clav 875 MG TAB PO SCH (09:15)
[2019-02-14] MEDS: Ketotifen Fumarate 0.025% Ophth Soln 5 ml Bottle EA EYE SCH (09:18)
--- NOTE | 2019-02-14 17:31 | PRG ---
DATE OF SERVICE: 02/14/2019 SUBJECTIVE: Kelvin Carrillo has no new complaints. I have consulted Palliative Care to assist his with management. OBJECTIVE: VITAL SIGNS: He is afebrile, heart rate is 77, respiratory rate is 20, and oximetry is 96% on room air. LUNGS: Clear. HEART: Regular rhythm. ABDOMEN: Soft and nontender. EXTREMITIES: Without edema. LABORATORY DATA: White count 10.1, hemoglobin 8.8, and platelets 245. Hemoglobin was 13.8 on admission. Potassium is 2.9, electrolytes are otherwise normal. IMPRESSION: 1. Aspiration pneumonia. 2. Movement disorder with deep brain stimulator in place. 3. Deconditioning. PLAN: He is totally dependent on his . He is tentatively scheduled to go to a swing bed. He is a do not resuscitate patient. Hopefully, at some point, they will consider hospice to try to keep him at home. We will continue management of his suprapubic catheter. Job ID: [id number]
--- NOTE | 2019-02-14 17:50 | EKG ---
Test Reason : STAT Blood Pressure : / mmHG Vent. Rate : 148 BPM Atrial Rate : 078 BPM P-R Int : 000 ms QRS Dur : 066 ms QT Int : 284 ms P-R-T Axes : 000 -74 205 degrees QTc Int : 445 ms Atrial fibrillaiton with fast ventricular response Left axis deviation Low voltage QRS Nonspecific ST and T wave abnormality Abnormal ECG When compared with ECG of 05-NOV-2018 23:00, ST now depressed in Inferior leads ST now depressed in Lateral leads Nonspecific T wave abnormality now evident in Inferior leads Confirmed by KAMAR UPTON (2) on 02/14/2019 5:49:46 PM Referred By: YOJANA Confirmed By:KAMAR UPTON
--- NOTE | 2019-02-14 21:53 | DIS ---
DATE OF ADMISSION: 02/07/2019 DATE OF DISCHARGE: 02/14/2019 PRIMARY CARE PHYSICIAN: REASON FOR ADMISSION: Sepsis. DIAGNOSES AT DISCHARGE: 1. Aspiration pneumonia. 2. Sepsis, resolved. 3. Acute respiratory failure with hypoxia, resolved. 4. Asymptomatic bacteriuria with Pseudomonas. 5. Suprapubic catheter for bladder outlet obstruction. 6. Atrial fibrillation, not on long-term anticoagulation secondary to bleeding concerns. 7. Chronic obstructive pulmonary disease. 8. Hypokalemia. 9. 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 10. Recurrent aspiration. 11. Extreme weakness and deconditioning. PROCEDURES: None. CONSULTATIONS: 1. Pulmonology, Dr. Lester. 2. Cardiology, Dr. Mao. SUMMARY OF HOSPITAL COURSE: This is an 83-year-old white male with a history of an undetermined movement disorder, not Parkinson's, with previous deep brain stimulator and recurrent episodes of aspiration. He was brought into the hospital with fever initially up to 100.3, it got up to 103 during his hospitalization. He was evaluated in the emergency room, had a suprapubic catheter due to bladder outlet obstruction, so a urinalysis was done, which showed some bacteria, was concerned for possible urinary tract infection. His initial x-ray had a new right pleural effusion. This progressed to bilateral effusions and some bibasilar atelectasis or infiltrates, worse on the right, eventually progressing to right-sided pneumonia. Dr. Lester was consulted, who recommended antibiotic therapy for likely aspiration event given patient's history. The patient did grow back some Pseudomonas from his urine. Dr. Kapadia was consulted. He determined that this was colonization bacteriuria and did not need specific treatment. The patient had some high spiking fevers during his hospitalization associated with some respiratory distress. He was moved to the ICU with BiPAP and eventually improved. He was do not attempt to resuscitation during his hospitalization. He did slowly improve, however, even after the pneumonia got better, he was still very debilitated and weak. As a result, he is going to swing bed. I have talked to Dr. Esteves in [place] and he did accept him for swing bed there, however, insurance is still pending. The patient will be transferred once we get insurance approval. DISCHARGE MANAGEMENT: 1. Location: Discharged to the [facility]. 2. Activity: As tolerated. 3. Diet: Healthy heart, low-sodium diet with mechanical soft textures, solids, and thin liquids per speech therapy. 4. Therapy instructions: Occupational, physical, and speech therapies at the swing bed. 5. Followup: Follow up with Dr. Kapadia as an outpatient, with Dr. Lester as an outpatient. DISCHARGE MEDICATIONS: 1. Augmentin 875 mg twice a day through February 17, 2019. 2. Acetaminophen as needed. 3. Digoxin 0.25 mg daily. 4. Diltiazem 120 mg daily. 5. Folic acid 1 mg daily. 6. Ketotifen fumarate one drop in each eye twice a day. 7. Zofran as needed. 8. Protonix 40 mg each morning. 9. Spiriva 18 mcg inhaled at night. 10. Albuterol sulfate as needed. 11. Alprazolam 0.5 mg twice a day as needed. 12. Tessalon Perles as needed. 13. Vitamin B12 1000 mcg daily. 14. Ferrous sulfate 325 mg 3 times a week. 15. Lidex 0.05% cream one application topically twice a day for dry skin to hands. 16. Ipratropium bromide nasal spray 2 sprays in each nostril twice a day as needed for congestion. 17. Multivitamin daily. 18. Nystatin one application topical 4 times a day to affected areas as needed. 19. Sertraline 100 mg at night. Arranging the details of this discharge took 35 minutes. Job ID: [id number]
== END 2019-02-14 18:44 | disposition swing bed (61) | DRG 871 ==
LOC: ERS 10:03 → T4-A 12:57 → CCU 19:56 → IMCU/EMU 02-08 18:11 → T4-A 02-11 17:04
PROVIDERS: ADMIT Internal Medicine; ATTEND Internal Medicine
DX: A41.9 Sepsis, unspecified organism (principal); G93.41 Metabolic encephalopathy; J69.0 Pneumonitis due to inhalation of food and vomit; J96.01 Acute respiratory failure with hypoxia; N39.0 Urinary tract infection, site not specified; I47.1 Supraventricular tachycardia; Z66 Do not resuscitate; I48.2 Chronic atrial fibrillation; J44.9 Chronic obstructive pulmonary disease, unspecified; I10 Essential (primary) hypertension; R29.6 Repeated falls; N32.0 Bladder-neck obstruction; B96.5 Pseudomonas (aeruginosa) (mallei) (pseudomallei) as the cause of diseases classified elsewhere; E86.0 Dehydration; F41.9 Anxiety disorder, unspecified; N40.1 Benign prostatic hyperplasia with lower urinary tract symptoms; R33.9 Retention of urine, unspecified; E87.6 Hypokalemia; G25.89 Other specified extrapyramidal and movement disorders; Z96.89 Presence of other specified functional implants; Z96.643 Presence of artificial hip joint, bilateral; Z93.59 Other cystostomy status; Z87.891 Personal history of nicotine dependence; Z79.899 Other long term (current) drug therapy
CPT/HCPCS: 36415; 36416; 71045; 80048; 80053; 80162; 81003; 81015; 82805; 83605; 83880; 84484; 85025; 87040; 87077; 87086; 87186; 93005; 93010; 94640; 94660; 96361; 96365; J0131; J0696; J1160; J1940; J2270; J2405; J2543; J2920; J3370; J3490

== ENCOUNTER 2019-02-24 18:21 | Inpatient (IN) | payer MEDICARE ==
[2019-02-24 18:54] VITALS: BP 152/79; TEMP 98.3
[2019-02-24] MEDS ORDERED: Ondansetron PF 4 MG/2 ML Vial IVP PRN (22:57)
[2019-02-24] MEDS ORDERED: Acetaminophen 650 MG Suppository PR PRN (22:57)
[2019-02-24] MEDS ORDERED: Acetaminophen 325 MG TAB PO PRN (22:57)
[2019-02-24] MEDS ORDERED: Bisacodyl 5 MG TAB PO PRN (22:57)
[2019-02-24] MEDS ORDERED: Sodium Chloride 0.9% 1,000 ML IV SCH (23:15)
--- NOTE | 2019-02-24 23:55 | HP ---
PRIMARY CARE PROVIDER: Dr. Gulshan Fitzgerald. CHIEF COMPLAINT: Nausea and vomiting. HISTORY OF PRESENT ILLNESS: Mr. Carrillo is a pleasant 83-year-old gentleman who was seen at [facility] on February 24, 2019. He was hospitalized at this facility from February 07 to February 14 of this year for sepsis, aspiration pneumonia, acute hypoxic respiratory failure, asymptomatic bacteriuria with Pseudomonas. He was discharged to [facility] following that hospitalization. The patient himself is unable to provide any history. Collateral history was obtained from discussion with his over the telephone and review of medical records. He reports that he occasionally ambulates with a walker when he is having physical therapy. Her main concern was that he has not been eating well and she recently found out that he does eat, he has been vomiting. 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 He also had 2 superficial ulcerations in the gastric fundus, most likely secondary to retained gastric contents/acid. He also had extrinsic compression of the 2nd portion of duodenum. He went on to have CT scan of the chest, abdomen, and pelvis, which showed acute upon chronic pancreatitis and no evidence of superior mesenteric artery syndrome. He had worsening right posterior basilar lung infiltrate, suspicious for aspiration pneumonia and small bilateral pleural effusions. He also had fecal distention of the rectum with related to circumferential rectal wall thickening, likely secondary to stercoral proctitis. He also had significant nonobstructing bilateral renal calculi. Because of this findings and because of these symptoms, the patient was sent as a direct admission to [facility]. REVIEW OF SYSTEMS: Could not be completed because the patient is unable to answer questions. PAST MEDICAL HISTORY: Chronic atrial fibrillation, chronic obstructive pulmonary disease, benign prostatic hypertrophy, indwelling suprapubic catheter, hypertension, depression, recurrent aspiration, asymptomatic bacteriuria, and movement disorder. PAST SURGICAL HISTORY: Suprapubic catheter placement, bilateral hip replacement, deep brain stimulator placement, and transurethral resection of the prostate. FAMILY HISTORY: No family history of premature coronary artery disease. SOCIAL HISTORY: No history of tobacco use, alcohol use, or recreational drug use. CODE STATUS: He is DNAR. This was confirmed with his . ALLERGIES: NO KNOWN DRUG ALLERGIES. CURRENT MEDICATIONS: As dictated by Dr. Taylor in his history and physical note dated February 14, 2019, with the exception of Augmentin, which has been discontinued. PHYSICAL EXAMINATION: GENERAL: Mr. Carrillo is awake and alert, not in acute distress. VITAL SIGNS: Blood pressure is 152/79, pulse 78, respiratory rate 16, and oxygen saturation 93% on room air. He is afebrile. EYES: No scleral icterus, no conjunctival pallor. ENT: Dry mucosal membranes. No oropharyngeal erythema or exudates. NECK: Supple, nontender, trachea is midline. RESPIRATORY: Accessory muscles of breathing are not active. Chest wall movements are symmetric bilaterally. He has right basilar crackles. CARDIOVASCULAR: S1 and S2 are heard, regular. Peripheral pulses palpable. NEUROLOGIC: Full neurologic examination was not possible secondary to patient's noncooperation. No facial droop. Deep tendon reflexes 2+. MUSCULOSKELETAL: The patient is able to move all 4 extremities. SKIN: He has a suprapubic catheter, the site looks clean. No rashes or subcutaneous nodules. LYMPHATIC: No cervical lymphadenopathy. PSYCHIATRIC: The patient has normal mood, is oriented to person, but not to place or time. LABORATORY DATA: Mr. Carrillo's labs and investigations were reviewed. He has leukocytosis with 14,800 white cells, of which 88% are neutrophils. He also has normocytic anemia with hemoglobin 10.8. Platelet count is normal. Sodium, potassium, blood urea nitrogen are normal. Creatinine is low. IMAGING STUDIES: He also had CT scan of the chest, abdomen and pelvis, result as described above. ASSESSMENT AND PLAN: Mr. Carrillo is a pleasant 83-year-old gentleman, who was seen at [facility] on February 24, 2019. His problem list includes: 1. Nausea and vomiting: Mr. Carrillo has been transferred to [facility] for direct admission for nausea and vomiting. He will be admitted to the hospital. We will consult GI Service for opinion and help with management. We will provide gentle hydration, given his poor oral intake. 2. Aspiration pneumonia: Mr. Carirllo's presentation is concerning for recurrent aspiration pneumonia. We will start ceftriaxone and metronidazole and follow blood cultures. 3. Chronic atrial fibrillation: Continue digoxin and diltiazem. 4. Chronic obstructive pulmonary disease: Appears to be stable, continue Spiriva and albuterol nebulizers p.r.n. 5. Hypertension: Resume home medications, monitor vital signs and titrate antihypertensives as needed. Many thanks for allowing me to participate in your patient's care. Please feel free to contact me with any questions or concerns. LEVEL OF RISK: Moderate. LEVEL OF COMPLEXITY: Moderate. Job ID: [id number]
[2019-02-24 23:56] LABS: #Lymphocytes 1.2 thou/uL (1.20-3.40); #Monocytes 0.6 thou/uL (0.11-0.59); #Neutrophils 10.5 thou/uL (1.40-6.50); %Basophils 0.2 % (0.0-1.0); %Eosinophils 0.1 % (0.0-10.0); %Monocytes 4.6 % (0.0-10.0); %Neutrophils 85.1 % (42.0-75.0); Hemoglobin 10.3 g/dL (14.0-18.0); Mean Corpuscular Hemoglobin 29.7 pg (27.0-31.0); Mean Corpuscular Volume 92.8 fL (78.0-98.0); Mean Platelet Volume 7.7 fL (7.4-10.4); Platelet Count 291 thou/uL (130-400); RBC Distribution Width 16.8 % (11.5-14.5); Red Blood Cell (RBC) Count 3.46 mill/uL (4.70-6.10); White Blood Cell (WBC) Count 12.3 thou/uL (4.8-10.8)
[2019-02-24] MEDS ORDERED: cefTRIAXone\\ROCEPHIN 1 GM in Sodium Chloride 0.9% 100 ML IVPB SCH (23:59)
[2019-02-25 00:17] LABS: ALT (SGPT) 8 U/L (8-55); AST (SGOT) 28 U/L (5-34); Albumin 3.3 g/dL (3.4-4.8); Alkaline Phosphatase 108 U/L (40-150); Anion Gap 13 mmol/L (10-20); BUN (Urea Nitrogen) 14 mg/dL (8.4-25.7); Bilirubin, Total 0.7 mg/dL (0.2-1.2); Calc. Creatinine Clearance 68 mL/min (70-130); Calcium 9.2 mg/dL (7.8-10.44); Carbon Dioxide 25 mmol/L (23-31); Chloride 109 mmol/L (98-107); Estimated GFR-MDRD Greater than 90; Globulin 3.8 g/dL (2.4-3.5); Glucose 98 mg/dL (83-110); Lipase 10 U/L (8-78); Potassium 3.9 mmol/L (3.5-5.1); Protein, Total 7.1 g/dL (5.8-8.1); Sodium 143 mmol/L (136-145)
[2019-02-25] MEDS ORDERED: metroNIDAZOLE 500 MG in Premix Bag 1 BAG IVPB SCH (01:00)
[2019-02-25] MEDS ORDERED: Enoxaparin Sodium 40 MG/0.4 ML SYRINGE SC SCH (09:00)
--- NOTE | 2019-02-27 10:01 | DIS ---
DATE OF ADMISSION: 02/24/2019 DATE OF DISCHARGE: 02/25/2019 PRIMARY CARE PROVIDER: Dr. Gulshan Fitzgerald. DATE OF : The patient on February 25, 2019. DIAGNOSES: 1. Aspiration pneumonia. 2. Nausea and vomiting. HOSPITAL COURSE: Mr. Carrillo was a pleasant 83-year-old gentleman, who was admitted to [facility] on February 24 2019, following direct admission from [facility]. Please refer to my history and physical note dated February 24 2019, for further details. Following hospitalization, he was seen to be at baseline around 3:30 a.m. At 3:50 a.m., he was found to be not breathing. Cardiopulmonary resuscitation was not attempted because the patient was DNAR. The patient was pronounced by RN and family was notified. Many thanks for allowing me to participate in your patient's care. Please feel free to contact me with any questions or concerns. Job ID: [id number]
--- NOTE | 2019-03-03 04:21 | PQF ---
[employer] Winform Viewer DARKELVIN PAL KELVIN [id number] CLINICAL DOCUMENTATION CLARIFICATION FORM: POST DISCHARGE Addendum to original discharge summary date: ____ Late entry note date: __ DaTE: 03/03/19 ATTN: Kelvin Chappell Please exercise your independent, professional judgment in responding to the clarification form. Clinical indicators are provided on the bottom of this form for your review Base on you clinical judgement can you please specify the patient mental status during this encounter? Please check appropriate box(s): [ ] Encephalopathy: Type: [ ] Acute [ ] Subacute [ ] Chronic Etiology: [ ] Metabolic [ ] Toxic [ ] Transient Alteration of Awareness [ x ] Other diagnosis please specify __PATIENT HAD CHRONIC COGNITIVE DECLINE____ [ ] Unable to determine In addition, please specify: Present on Admission (POA): [ X ] Yes [ ] No [ ] Unable to determine For continuity of documentation, please document condition throughout progress notes and discharge summary. Thank You. CLINICAL INDICATORS H and P 6/[address] Pal -The patient himself is unable to provide any history H and P 6/[address] Pal -Her main concern was that he has not been eating well and she recently found out he does not eat, he has been vomiting H and P 6/[address] Pal- ROS: could not be completed because the patient is unable to answer questions H and P 6/[address] Pal- Code status: DNAR H and P 6/[address] Pal- Physical Exam: General: Mr Westfall is awake and alert, not in acute distress H and P 6/[address] Pal- Psychiatric: The patient has normal mood, is oriented to person but not to place or time RISK FACTORS Aspiration pneumonia- H and P 6/[address] Pal Indwelling suprapubic catheter- H and P pg.2 Dr. Pal TREATMENTS: IV fluids- NOV 16 Neuro check- H and P pg.1 Dr. Pal (This form is maintained as a part of the permanent medical record) 2014 [employer]. All Rights Reserved Juan Alberto [email or web address] [not provided] [email or web address]
== END 2019-02-25 03:50 | disposition expired | DRG 177 ==
LOC: ONC 18:21
PROVIDERS: ADMIT Internal Medicine; ATTEND Internal Medicine
DX: J69.0 Pneumonitis due to inhalation of food and vomit (principal); K85.90 Acute pancreatitis without necrosis or infection, unspecified; K86.1 Other chronic pancreatitis; Z66 Do not resuscitate; K62.89 Other specified diseases of anus and rectum; I48.2 Chronic atrial fibrillation; J44.9 Chronic obstructive pulmonary disease, unspecified; N40.0 Benign prostatic hyperplasia without lower urinary tract symptoms; I10 Essential (primary) hypertension; K25.9 Gastric ulcer, unspecified as acute or chronic, without hemorrhage or perforation; N20.0 Calculus of kidney; F32.9 Major depressive disorder, single episode, unspecified; Z96.643 Presence of artificial hip joint, bilateral; Z79.51 Long term (current) use of inhaled steroids; Z79.899 Other long term (current) drug therapy; D64.9 Anemia, unspecified
CPT/HCPCS: 36415; 71260; 74177; 83690; 87040; J0696; J1100; J2250; J2370; J2405; J2704; J3490

== ENCOUNTER → 2019-02-24 | Day surgery (SDC) | payer MEDICARE ==
[2019-02-23 16:48] VITALS: BMI 20.5
[~2019-02-24] MED LIST: Dexamethasone 20 MG/5 ML VIAL ONE; Ketamine 50 MG/ML (10ML VIAL) ONE; Midazolam HCl 2 mg/2 ml Vial ONE; Ondansetron PF 4 MG/2 ML Vial ONE; PROPOFOL 200 MG/20 ML VIAL ONE; Phenylephrine HCL 10 MG/ML VIAL ONE; Succinylcholine Chloride 20 MG/ML 10 ml SYRINGE FS ONE
--- NOTE | 2019-02-24 12:40 | OP ---
DATE OF PROCEDURE: 02/24/2019 PROCEDURE PERFORMED: Esophagogastroduodenoscopy (diagnostic). INDICATIONS FOR PROCEDURE: Nausea and vomiting, history of oropharyngeal dysphagia. DESCRIPTION OF PROCEDURE: After the risks and benefits of the procedure were explained to the patient's surrogate (the patient's ) including risks of bleeding, infection, perforation, reactions to anesthesia, aspiration and/or pain, informed consent was obtained. The patient was then taken to the endoscopy suite, where general anesthesia was administered with endotracheal tube intubation given his increased risk of aspiration. Once the patient was intubated and sedated, the standard gastroscope was introduced into the mouth with intubation of the esophagus, stomach, and the proximal small intestine with the findings listed below. The patient tolerated the procedure well with no immediate perioperative complications. Upon conclusion of the procedure, the patient was taken to PACU in satisfactory condition. FINDINGS: Esophagus: A [id number] amount of greenish fluid was seen in the distal and mid esophagus with normal-appearing mucosa within the proximal esophagus. Underlying this greenish fluid, there were innumerable erosions along the esophageal wall in the mid and distal esophagus, but no evidence of overt ulceration. At examination of the GE junction, it was easily traversed with the standard gastroscope with no evidence of an achalasia type picture with the erosions present. It was more indicative of an LA grade C/D erosive esophagitis. There was no evidence of ulcerations, mass, lesions, or active/recent bleeding in this region. Stomach: A significant amount of greenish fluid was seen in the stomach with approximately 2 to 2.5 L removed during this examination. With all the fluid removed, there was still a fair amount of granular green food debris that inhibited visualization of the gastric mucosa somewhat, but approximately 80% to 90% of the gastric mucosa was adequately visualized. After the mucosa visualized, there were 2 target superficial ulcerations in the gastric fundus/body, measuring approximately 3 to 4 mm in size, with no evidence of high-risk stigmata of bleeding. No biopsies were taken during this examination given the likelihood of the retained gastric contents more causing these ulcerations. Otherwise, normal-appearing mucosa was seen in the gastric cardia. Body, greater curvature, antrum, and incisura: The pyloric valve was widely patent and easily traversed with the standard gastroscope. There was no evidence of mass, lesions, or active/recent bleeding in any part of the stomach. Duodenum: Normal-appearing mucosa was seen in the duodenal bulb; however, with the patient having more of a J-shaped stomach, it was very difficult to achieve intubation of the second portion of the duodenum. There also appeared to be extrinsic compression of the second portion of the duodenum. Multiple attempts were made to intubate the second portion of the duodenum, but were unsuccessful, and insufflation of air within the duodenal bulb and second portion was not able to open up the second portion as well. Otherwise, there was no evidence of erosions, ulcerations, mass, lesions, or active/recent bleeding seen during this portion of the exam. IMPRESSION: 1. 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 2. Two superficial ulcerations seen in the gastric fundus, most likely secondary to retained gastric contents/acid. RECOMMENDATIONS: 1. We will obtain both a CT of the chest and a CT of the abdomen and pelvis today for evaluation of possible SMA syndrome and aspiration of gastric contents given his recent history of nausea and vomiting. 2. We will confer with the patient's PCP about how to best proceed with this patient who is currently residing in care home with a DNR/DNI. 3. The patient may need inpatient hospitalization for further evaluation of this extrinsic compression of the second portion of the duodenum. Job ID: [id number]
--- NOTE | 2019-02-24 13:45 | CT ---
CT chest with IV contrast CT abdomen and pelvis with IV contrast HISTORY: Abdominal pain. Nausea vomiting. Superior mesenteric artery syndrome. Aspiration. COMPARISON: 11/06/2018. 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 Patchy ill-defined infiltrate at the right posterolateral lung base has progressed since the prior minimal left pleural fluid. Calcifi cation within the arterial structures. Old bilateral rib fractures. The esophagus is not affected by the superior mesenteric artery. There is significant fluid and fat s tranding, however, about the esophagus with inflammation of the pancreas. Dystrophic pancreatic calcifications are also evident. Mild fusiform ectasia of the lower abdominal aorta. Degenerative tramaine nges lumbar spine. Suprapubic catheter is in place. Extensive calcifications within the collecting structures of each kidney, including some ill-defined, soft appearing calcifications. At each renal h ilum, more dense, focal calcifications are present, measuring up to 1.1 cm right and 1.4 cm on the left. No evidence of urinary tract obstruction. Suprapubic urinary bladder catheter in place. The rectum is distended with fecal material up to 8.9 cm. Rectal wall remains somewhat thickened allo wing for degree of fecal distention. No free fluid or free air are apparent. IMPRESSION: Acute upon chronic pancreatitis. No evidence of superior mesenteric artery syndrome. Worsening right posterior basilar lung infiltrate. Consider aspiration pneumonia. Small bilateral ple ural effusions. Fecal distention of the rectum with relative circumferential rectal wall thickening. Consider stercoral proctitis. Significant nonobstructing bilateral renal calculi. Atherosclerosis.
== END ==
LOC: SDC 09:51
PROVIDERS: ATTEND Internal Medicine
PROC: 0DJ08ZZ Inspection of Upper Intestinal Tract, Via Natural or Artificial Opening Endoscopic (ICD-10-PCS; principal; 2019-02-24)
DX: K25.9 Gastric ulcer, unspecified as acute or chronic, without hemorrhage or perforation (principal); K22.8 Other specified diseases of esophagus; K31.89 Other diseases of stomach and duodenum; K85.90 Acute pancreatitis without necrosis or infection, unspecified; K86.1 Other chronic pancreatitis; N20.0 Calculus of kidney; Z79.899 Other long term (current) drug therapy
CPT/HCPCS: 71260; 74177; J2250